=== PATIENT | female | born 1985 | race Caucasian/White ===

== ENCOUNTER → 2017-05-28 09:46 | Outpatient (CLI) | payer BC, SELFPAY ==
[2017-05-28 15:18] LABS: Chlamydia Trachomatis by PCR Negative (Negative); Neisserai gonorrhoeae by PCR Negative (Negative); Probe Check PASS; Sample Adequacy Control PASS; Specimen Processing Control PASS
== END ==
PROVIDERS: Visit Provider Obstetrics & Gynecology
DX: Z11.3 Encounter for screening for infections with a predominantly sexual mode of transmission (principal)
CPT/HCPCS: 87491; 87591

== ENCOUNTER → 2017-06-08 14:39 | Outpatient (CLI) | payer BC, SELFPAY ==
[2017-06-08 15:43] LABS: Color, Urine Yellow (Yellow); Glucose, Dipstick Normal (Normal); Ketone-Dipstick Negative (Negative); Leukocyte Esterase-Dipstick 25 /ul (Negative); Nitrite-Dipstick Negative (Negative); Occult Blood-Urine Negative /ul (Negative); Protein-Dipstick Negative (Negative); Specific Gravity, Urine 1.005 (1.002-1.030); Urine Bilirubin Dipstick Negative (Negative); Urine Clarity Clear (Clear); Urine Urobilinogen Normal (Normal)
[2017-06-08 15:47] LABS: Absolute Neutrophil Count 5.4 X10^3/uL (2.0-7.7); Basophil# 0.02 X10^3/uL; Basophil% 0.2 % (0-1); Eosinophil# 0.05 X10^3/uL; Eosinophils% 0.6 % (0-5); Hematocrit 37.1 % (37-47); Hemoglobin 12.6 g/dl (12.0-15.0); Lymphocyte % 27.7 % (19-41); Mean Corpuscular Hgb 32.7 pg (27.0-32.0); Mean Corpuscular Volume 96.4 fL (81-99); Mean Platelet Vol. 9.4 fl (6.2-12.0); Monocyte# 0.52 X10^3/uL; Monocyte% 6.3 % (0-10); Neutrophil # 5.41 X10^3/uL (2.7-7.7); Neutrophil % 65.1 % (47-70); Platelet Count 261 K/mm3 (150-450); RBC Distribution Width CV 12.1 % (11.6-14.6); RBC Distribution Width SD 42.3 fl (35.1-43.9); Red Blood Count 3.85 M/mm3 (4.2-5.4); White Blood Count 8.3 K/mm3 (4.4-11.0)
[2017-06-08 15:51] LABS: POSITIVE COUNT NO; POSITIVE DIFFERENTIAL NO; POSITIVE MORPHOLOGY NO
[2017-06-08 16:05] LABS: Thyroid Stim Hormone (TSH) 1.89 uIU/mL (0.358-3.74)
[2017-06-08 16:45] LABS: HIV - WCH Non-Reactive (Nonreactive); Rubella IgG 65.7 IU/mL
[2017-06-10 11:30] LABS: HEPATITIS B SURFACE AG Negative (Negative); Hep C Antibodies <0.1 s/co ratio (0.0-0.9)
[2017-06-12 03:10] LABS: Prenatal RPR NONREACTIVE (NONREACTIVE)
== END ==
PROVIDERS: Visit Provider Obstetrics & Gynecology
DX: Z34.90 Encounter for supervision of normal pregnancy, unspecified, unspecified trimester (principal)
CPT/HCPCS: 36415; 81002; 84443; 85025; 86703; 86762; 86777; 86778; 86803; 87340

== ENCOUNTER → 2017-10-27 08:41 | Outpatient (CLI) | payer BC, SELFPAY ==
[2017-10-27 11:45] LABS: Hematocrit 35.4 % (37-47); Hemoglobin 11.6 g/dl (12.0-15.0); Mean Corp Hgb Conc 32.8 g/gl (32-36); Mean Corpuscular Hgb 32.4 pg (27.0-32.0); Mean Corpuscular Volume 98.9 fL (81-99); Mean Platelet Vol. 9.7 fl (6.2-12.0); Platelet Count 209 K/mm3 (150-450); RBC Distribution Width CV 12.5 % (11.6-14.6); RBC Distribution Width SD 44.8 fl (35.1-43.9); Red Blood Count 3.58 M/mm3 (4.2-5.4); White Blood Count 8.6 K/mm3 (4.4-11.0)
[2017-10-27 11:46] LABS: Scan Indicated on CBC? Y/N NO
[2017-10-27 11:51] LABS: Glucose Challenge Gest 1H 50g 122 mg/dL (70-140)
== END ==
PROVIDERS: Visit Provider Obstetrics & Gynecology
DX: Z34.83 Encounter for supervision of other normal pregnancy, third trimester (principal)
CPT/HCPCS: 36415; 82950; 85027

== ENCOUNTER → 2017-12-22 11:02 | Outpatient (CLI) | payer BC, SELFPAY ==
[2017-12-22 15:04] LABS: Group B Strep DNA By PCR Negative (Negative); Internal Control PASS; Probe Check PASS; Specimen Processing Control PASS
== END ==
PROVIDERS: Visit Provider Obstetrics & Gynecology
DX: Z36.85 Encounter for antenatal screening for Streptococcus B (principal)
CPT/HCPCS: 87081; 87653

== ENCOUNTER 2018-01-26 09:20 | Inpatient (IN) | payer BC, SELFPAY ==
[2018-01-26] VITALS (12 sets, daily range): BP systolic 91–135; BP diastolic 54–80; PULSE 82–104; RESP 14–20; TEMP 36.8–37.6; O2SAT 98–100; BMI 29.8
[2018-01-26] MEDS: Lactated Ringers 1,000 ML 50 ML IV ×2 (09:45→15:19)
[2018-01-26 10:00] LABS: Hematocrit 35.8 % (37-47); Mean Corp Hgb Conc 33.5 g/gl (32-36); Mean Corpuscular Hgb 31.3 pg (27.0-32.0); Mean Corpuscular Volume 93.2 fL (81-99); Mean Platelet Vol. 10.4 fl (6.2-12.0); Platelet Count 238 K/mm3 (150-450); RBC Distribution Width CV 13.4 % (11.6-14.6); RBC Distribution Width SD 44.5 fl (35.1-43.9); Red Blood Count 3.84 M/mm3 (4.2-5.4); White Blood Count 8.5 K/mm3 (4.4-11.0)
[2018-01-26 10:01] LABS: Scan Indicated on CBC? Y/N NO
[2018-01-26] MEDS: Oxytocin 30 units/NS 500 ml 30 UNITS/500 ML IV.SOLN IV (10:05)
--- NOTE | 2018-01-26 12:35 | PCM.PN.BLA ---
Progress Note LABOR PROGRESS NOTE feeling some cramping, not painful, States bag of vega broke AVSS Pitocin at 6 mIU/min EFM 120-130s avg variability. Accels noted. no decels UCs q 3 min at times, poor shredder picker at times. CX: deferred. A/P: 41 3/7 wk Induction of labor. SROM continue pitocin per protocol. Prodromal labor now. Watch progress, descent.
[2018-01-26] MEDS: fentaNYL-bupivacaine (epidural) 100 ML BAG EPIDURAL (15:33)
[2018-01-26] MEDS: Sodium Citrate/Citric Acid 30 ML UDC PO (16:40)
[2018-01-26] MEDS: Cefazolin 2 GM in 0.9% Normal Saline 100 ML IV (16:52)
[2018-01-26] MEDS: Oxytocin 30 units/NS 500 ml 30 UNITS/500 ML IV.SOLN 167 UNITS IV (17:11)
[2018-01-26] MEDS: Ketorolac 30 MG/ML Syringe IV (17:34)
--- NOTE | 2018-01-26 17:46 | PCM.PN.BLA ---
Progress Note LATE ENTRY from appro 16:30 Called to evaluate patient. ? presentation. Hand presentation vs other. Sono confirms vtx but with calcified appearing appendage inferior to vtx. EFM overall reassuring. Occasional late. CX: 6/ with ? face presentation. Firm structure at approx 3:00- 4:00 position attempted pressure to reduce ? hand. With further examination. ? face presentation. Inc vaginal bleeding noted with exam. Sparks bulb reduced. a/P: Malpresentation. Face likely,but cannot r/o compound presentation on exam. Increased vaginal bleeding. Advised pt and spouse that safest route of delivery is by C Section. Preparations made. NIGHT BAKER to assist, Anesthesia notified. OB dept aware. Ancef 2 gm IV x one to be given.
--- NOTE | 2018-01-26 17:50 | PN_ITS ---
Progress Note LATE ENTRY from appro 16:30 Called to evaluate patient. ? presentation. Hand presentation vs other. Sono confirms vtx but with calcified appearing appendage inferior to vtx. EFM overall reassuring. Occasional late. CX: 6/ with ? face presentation. Firm structure at approx 3:00- 4:00 position attempted pressure to reduce ? hand. With further examination. ? face presentation. Inc vaginal bleeding noted with exam. Sparks bulb reduced. a/P: Malpresentation. Face likely,but cannot r/o compound presentation on exam. Increased vaginal bleeding. Advised pt and spouse that safest route of delivery is by C Section. Preparations made. ROTARY BAR OPERATOR to assist, Anesthesia notified. OB dept aware. Ancef 2 gm IV x one to be given.
[2018-01-26] MEDS: Lactated Ringers 1,000 ML 100 ML IV (19:20)
--- NOTE | 2018-01-26 20:38 | PCM.OP.BLANK ---
Operative Report Date of Procedure: 01/26/18 PROCEDURE: PRIMARY C SECTION Preoperative diagnosis: 41 3/7 wk EGA Labor malpresentation, face with possible hand Postop diagnosis: 41 3/7 wk EGA Labor malpresentation, face presentation Anesthesia: Epidural per Molly Salinas CRNA Surgeon: Cara Patel MD Cytotechnologist Supervisor: Shawn Ch, ARSEN EBL 800 cc Complications: none Drains: Sparks draining clear yellow urine Fluids: replacement LR Findings: At amniotomy, clear fluid was noted. Kennedy viable female in vertex position, face presentation. Apgars 8/9, Baby weight:7# 9 oz . There were a normal appearing uterus and fallopian tubes and ovaries bilaterally. PATH: none Narrative account: After the risks, benefits and alternatives of the procedure were reviewed with the patient , informed consent was obtained. The patient was taken to the Operating room with an IV running, a Sparks catheter in place and an epidural catheter in place. The epidural was dosed to surgical levels. The patient was the positioned to the dorsal supine position with leftward displacement of the uterus on the operating table, and briefly frog legged for vaginal vault prep and then returned to dorsal supine position with leftward displacement of the uterus, and prepped and draped in the usual sterile fashion. Once the epidural was deemed adequate, a Pfannenstiel skin incision was created using the knife . The incision was carried down to the rectus fascia using the knife. The fascia was nicked in the midline. The fascial incision was extended bilaterally using curved Gordon scissors. The superior aspect of the fascial incision was grasped with Talya clamps and tented up and the underlying rectus abdominal muscles were dissected free. In a similar manner, the inferior aspect of the facial incision was grasped with Talya clamps tented up and the underlying rectus abdominal muscles were dissected free. The rectus abdominis muscles were widely . The peritoneum was identified and entered by blunt dissection. The peritoneal incision was then extended inferiorly and superiorly using Metzenbaum scissors. The peritoneum was stretched laterally and a bladder blade was inserted. The uterine incision was then created using Metzenbaum scissors.The uterine incision was extended by blunt dissection in a caudad- cephalad orientation using the shell mold bonding machine operator's fingertips. Clear fluid was noted at amniotomy. The vertex was then delivered. A face presentation was noted, with mild edema of the baby's face and some frontal bossing noted. Using fundal pressure the baby was delivered. The OP and nares were bulb suctioned on the abdomen. The cord was clamped x two and cut and the baby was shown briefly to her parents and then passed off to the nurse and Dr. Vega awaiting delivery. The baby had a spontaneous, vigorous cry. The placenta was then delivered. The uterus was exteriorized and cleared of clots and debris . The uterine incision was repaired with 1 Vicryl in a running locked fashion. A second imbricating layer was then placed, using 1 Monocryl in running nonlocked fashion. There was a small hematoma extending at the Left uterine angle. this area was oversewn as needed for hemostasis and to stabilize the hematoma. The hematoma then remained soft and excellent hemostasis was noted. The uterus, fallopian tubes and ovaries were then inspected and returned to the abdominal cavity. The gutters were cleared of clots and debris. The uterine incision and fallopian tubes were again inspected. Excellent hemostasis was noted. The pelvis and abdomen were irrigated. The rectus abdominis and peritoneal edges were reapproximated in the midline with interrupted vertical mattress stitches of 1 Vicryl . Excellent hemostasis was noted at the subfascial space . The fascia was closed in a running nonlocked fashion with Stratofix suture. The Subcutaneous fatty tissue was Bovie cauterized as needed for hemostasis. This layer was then reapproximated with a nonlocked running 3-0 Vicryl. The skin edges were closed in a Subcuticular stitch of 4-0 Monocryl. The incision was cleansed. Seri-strips, and a sterile dressing (Mepilex) were applied. The patient was then transferred to the recovery room bed in stable condition after tolerating the procedure well. Sponge, lap, needle and instrument counts correct times two. Medications given preop and intraoperatively included: Ancef two grams IV was given cardiovascular sonographer to the operating room. The patient also received Pitocin given IV after cord clamp, and Toradol 30 mg IV after cord clamp. For a complete listing of medications given preop and intraoperatively, please see the anesthesia record.
--- NOTE | 2018-01-26 20:47 | OP.PCM_ITS ---
Operative Report Date of Procedure: 01/26/18 PROCEDURE: PRIMARY C SECTION Preoperative diagnosis: 41 3/7 wk EGA Labor malpresentation, face with possible hand Postop diagnosis: 41 3/7 wk EGA Labor malpresentation, face presentation Anesthesia: Epidural per Molly Salinas CRNA Surgeon: Cara Patel MD Go Go Dancer: Shawn Ch, ARSEN EBL 800 cc Complications: none Drains: Sparks draining clear yellow urine Fluids: replacement LR Findings: At amniotomy, clear fluid was noted. Kennedy viable female in vertex position, face presentation. Apgars 8/9, Baby weight:7# 9 oz . There were a normal appearing uterus and fallopian tubes and ovaries bilaterally. PATH: none Narrative account: After the risks, benefits and alternatives of the procedure were reviewed with the patient , informed consent was obtained. The patient was taken to the Operating room with an IV running, a Sparks catheter in place and an epidural catheter in place. The epidural was dosed to surgical levels. The patient was the positioned to the dorsal supine position with leftward displacement of the uterus on the operating table, and briefly frog legged for vaginal vault prep and then returned to dorsal supine position with leftward displacement of the uterus, and prepped and draped in the usual sterile fashion. Once the epidural was deemed adequate, a Pfannenstiel skin incision was created using the knife . The incision was carried down to the rectus fascia using the knife. The fascia was nicked in the midline. The fascial incision was extended bilaterally using curved Gordon scissors. The superior aspect of the fascial incision was grasped with Talya clamps and tented up and the underlying rectus abdominal muscles were dissected free. In a similar manner, the inferior aspect of the facial incision was grasped with Talya clamps tented up and the underlying rectus abdominal muscles were dissected free. The rectus abdominis muscles were widely . The peritoneum was identified and entered by blunt dissection. The peritoneal incision was then extended inferiorly and superiorly using Metzenbaum scissors. The peritoneum was stretched laterally and a bladder blade was inserted. The uterine incision was then created using Metzenbaum scissors.The uterine incision was extended by blunt dissection in a caudad- cephalad orientation using the exhaust equipment operator's fingertips. Clear fluid was noted at amniotomy. The vertex was then delivered. A face presentation was noted, with mild edema of the baby's face and some frontal bossing noted. Using fundal pressure the baby was delivered. The OP and nares were bulb suctioned on the abdomen. The cord was clamped x two and cut and the baby was shown briefly to her parents and then passed off to the nurse and Dr. Vega awaiting delivery. The baby had a spontaneous, vigorous cry. The placenta was then delivered. The uterus was exteriorized and cleared of clots and debris . The uterine incision was repaired with 1 Vicryl in a running locked fashion. A second imbricating layer was then placed, using 1 Monocryl in running nonlocked fashion. There was a small hematoma extending at the Left uterine angle. this area was oversewn as needed for hemostasis and to stabilize the hematoma. The hematoma then remained soft and excellent hemostasis was noted. The uterus, fallopian tubes and ovaries were then inspected and returned to the abdominal cavity. The gutters were cleared of clots and debris. The uterine incision and fallopian tubes were again inspected. Excellent hemostasis was noted. The pelvis and abdomen were irrigated. The rectus abdominis and peritoneal edges were reapproximated in the midline with interrupted vertical mattress stitches of 1 Vicryl . Excellent hemostasis was noted at the subfascial space . The fascia was closed in a running nonlocked fashion with Stratofix suture. The Subcutaneous fatty tissue was Bovie cauterized as needed for hemostasis. This layer was then reapproximated with a nonlocked running 3-0 Vicryl. The skin edges were closed in a Subcuticular stitch of 4-0 Monocryl. The incision was cleansed. Seri- strips, and a sterile dressing (Mepilex) were applied. The patient was then transferred to the recovery room bed in stable condition a fter tolerating the procedure well. Sponge, lap, needle and instrument counts correct times two. Medications given preop and intraoperatively included: Ancef two grams IV was given tailor women's garment alteration to the operating room. The patient also received Pitocin given IV after cord clamp, and Toradol 30 mg IV after cord clamp. For a complete listing of medications given preop and intraoperatively, please see the anesthesia record.
--- NOTE | 2018-01-26 21:58 | NURSING ---
Epidural removed, blue tip intact.
--- NOTE | 2018-01-26 23:30 | NURSING ---
This RN taking over care of pt. Bedside report given and [employer] phone number written on board.
[2018-01-27] VITALS (14 sets, daily range): BP systolic 102–120; BP diastolic 58–71; PULSE 73–88; RESP 16–18; TEMP 36.7–37.4; O2SAT 16–99
[2018-01-27] MEDS: Ketorolac 30 MG/ML Syringe IV ×5 (00:13→23:42)
[2018-01-27 04:35] LABS: Hemoglobin 8.9 g/dl (12.0-15.0); Mean Corpuscular Hgb 31.4 pg (27.0-32.0); Mean Corpuscular Volume 95.4 fL (81-99); Mean Platelet Vol. 9.8 fl (6.2-12.0); Platelet Count 173 K/mm3 (150-450); RBC Distribution Width CV 13.4 % (11.6-14.6); RBC Distribution Width SD 43.8 fl (35.1-43.9); Red Blood Count 2.83 M/mm3 (4.2-5.4); White Blood Count 10.6 K/mm3 (4.4-11.0)
[2018-01-27 04:37] LABS: Scan Indicated on CBC? Y/N NO
[2018-01-27] MEDS: Lactated Ringers 1,000 ML 100 ML IV (06:03)
--- NOTE | 2018-01-27 07:00 | PCM.DCCSEC ---
Discharge Diet: No Restrictions Discharge Activity: May not drive while taking narcotic pain medications., May Shower, May Take a Tub Bath Return to work on:: 03/08/18 May resume sexual activity in: 4-6 weeks Lifting Restrictions: 20 pounds Additional Activity Instructions:: Nothing in the vagina for 4-6 weeks. You may return to work/school in 6 weeks. Change Dressing in (Days):: 4 Remove Dressing in (days):: 4 Cleanse incision/area with: Soap & Water, Keep Dressing Clean & Dry Additional Instructions: If you experience any of the following, contact your healthcare provider. Bleeding that soaks a pad every hour for 2 hours Fever 100.4 or higher Unrelieved incision or abdominal pain Swelling, redness, discharge or bleeding from your incision Problems urinating (including inability to urinate or burning while urinating). Visual changes Severe headache Flu-like symptoms Pain or redness in one of both of your breasts Pain, warmth, tenderness or swelling in your legs, especially the calf area Frequent nausea and vomiting Symptoms of depression or anxiety If you experience any of the following, call 911 or go to the nearest Emergency Room. Chest pain Problems breathing Seizure activity Partial or complete paralysis of a body part, slurred speech, weakness or drooping of the face, or a sudden inability to walk or hold your balance Allergies/Adverse Reactions: Allergies No Known Allergies Allergy (Verified 01/26/18 09:50) Medications to take at Discharge Vits96/Iron Fum/Folic [ Tablet] 01/26/18 Acetaminophen [Tylenol] 1,000 mg PO Q8H PRN tablet 01/27/18 Ferrous Sulfate 325 mg PO 1200,1700 #60 tablet 01/27/18 Naproxen [Naprosyn] 250 - 500 mg PO Q8H PRN PRN #30 tablet 01/27/18 Oxycodone [Oxyir] 5 mg PO Q6H PRN PRN 5 Days #20 tablet 01/27/18 Senna/Docusate Sodium [Senokot-S] 1 - 2 tab PO DAILY PRN #30 tablet 01/27/18 The following prescriptions were given: Oxycodone [Oxyir] 5 mg PO Q6H PRN PRN 5 Days #20 tablet PRN Reason: Mod-Severe Pain (-12/30) Naproxen [Naprosyn] 250 - 500 mg PO Q8H PRN PRN #30 tablet PRN Reason: Mild-Mod Pain (1-07/30) Ferrous Sulfate 325 mg PO 1200,1700 #60 tablet Senna/Docusate Sodium [Senokot-S] 1 - 2 tab PO DAILY PRN #30 tablet PRN Reason: Constipation Follow-Up: Call to make an appointment with your doctor for an incision check in 1-2 weeks. You will also need a 6 week post- follow up appointment. Test results from this visit will be discussed in further detail at your follow-up appointment, if applicable. Please Follow Up With: Cara Patel MD - [phone] When: Call to make an appointment for an incision check in 2 weeks. Primary Care Physician: Care Physician,No Primary [Primary Care Provider] - Proposed Discharge Date: 01/29/18
--- NOTE | 2018-01-27 07:05 | DCINST_ITS ---
Discharge Diet: No Restrictions Discharge Activity: May not drive while taking narcotic pain medications., May Shower, May Take a Tub Bath Return to work on:: 03/08/18 May resume sexual activity in: 4-6 weeks Lifting Restrictions: 20 pounds Additional Activity Instructions:: Nothing in the vagina for 4-6 weeks. You may return to work/school in 6 weeks. Change Dressing in (Days):: 4 Remove Dressing in (days):: 4 Cleanse incision/area with: Soap & Water, Keep Dressing Clean & Dry Additional Instructions: If you experience any of the following, contact your healthcare provider. * Bleeding that soaks a pad every hour for 2 hours * Fever 100.4 or higher * Unrelieved incision or abdominal pain * Swelling, redness, discharge or bleeding from your incision * Problems urinating (including inability to urinate or burning while urinating). * Visual changes * Severe headache * Flu-like symptoms * Pain or redness in one of both of your breasts * Pain, warmth, tenderness or swelling in your legs, especially the calf area * Frequent nausea and vomiting * Symptoms of depression or anxiety If you experience any of the following, call 911 or go to the nearest Emergency Room. * Chest pain * Problems breathing * Seizure activity * Partial or complete paralysis of a body part, slurred speech, weakness or drooping of the face, or a sudden inability to walk or hold your balance Allergies/Adverse Reactions: Allergies No Known Allergies Allergy (Verified 01/26/18 09:50) Medications to take at Discharge Vits96/Iron Fum/Folic [ Tablet] 01/26/18 Acetaminophen [Tylenol] 1,000 mg PO Q8H PRN tablet 01/27/18 Ferrous Sulfate 325 mg PO 1200,1700 #60 tablet 01/27/18 Naproxen [Naprosyn] 250 - 500 mg PO Q8H PRN PRN #30 tablet 01/27/18 Oxycodone [Oxyir] 5 mg PO Q6H PRN PRN 5 Days #20 tablet 01/27/18 Senna/Docusate Sodium [Senokot-S] 1 - 2 tab PO DAILY PRN #30 tablet 01/27/18 The following prescriptions were given: Oxycodone [Oxyir] 5 mg PO Q6H PRN PRN 5 Days #20 tablet PRN Reason: Mod-Severe Pain (4-12/30) Naproxen [Naprosyn] 250 - 500 mg PO Q8H PRN PRN #30 tablet PRN Reason: Mild-Mod Pain (1-07/30) Ferrous Sulfate 325 mg PO 1200,1700 #60 tablet Senna/Docusate Sodium [Senokot-S] 1 - 2 tab PO DAILY PRN #30 tablet PRN Reason: Constipation Follow-Up: Call to make an appointment with your doctor for an incision check in 1-2 weeks. You will also need a 6 week post- follow up appointment. Test results from this visit will be discussed in further detail at your follow- up appointment, if applicable. Please Follow Up With: Cara Patel MD - [phone] When: Call to make an appointment for an incision check in 2 weeks. Primary Care Physician: Care Physician,No Primary [Primary Care Provider] - Proposed Discharge Date: 01/29/18
--- NOTE | 2018-01-27 08:32 | PCM.PN.OB ---
Subjective: POD#1 Primary C section for malpresentation , face presentation at 41 4/7 wk EGA Doing OK. Pain control adequate. Nursing well. Up to chair right now and states first time out of bed since surgery last evening. - Physical Exam General: Alert, Oriented x3, Cooperative, No apparent distress HEENT: Atraumatic Neck: Supple Abdomen: Soft - Fundus firm minimally tender and inferior to umbilicus x 2-3 cm Skin: Incision - Mepilex dressing CDI. Neurological: Cranial nerves II-XII grossly intact Psych/Mental Status: Normal Affect Vital Signs Temp Pulse Resp BP Pulse Ox 98.1 F 78 16 117/67 97 01/27/18 08:00 01/27/18 08:00 01/27/18 08:00 01/27/18 08:00 01/27/18 08:00 Oxygen Delivery Method Room Air Weight: 78.9 kg Body Mass Index (BMI) 29.8 Intake and Output for Last 24 Hours 01/25/18 01/26/18 01/27/18 23:59 23:59 23:59 Intake Total 2455 / 2455 1383 / 1383 Output Total 2100 / 2100 1950 / 1950 Balance 355 / 355 -567 / -567 Laboratory Tests Past 24 Hrs 01/26/18 01/26/18 01/27/18 09:45 09:45 04:30 WBC 8.5 10.6 RBC 3.84 L 2.83 L Hgb 12.0 8.9 L Hct 35.8 L 27.0 L MCV 93.2 95.4 MCH 31.3 31.4 MCHC 33.5 33.0 RDW 13.4 13.4 RDW Differential 44.5 H 43.8 Plt Count 238 173 MPV 10.4 9.8 Blood Type O POSITIVE Antibody Screen NEGATIVE Medical Necessity - Tobacco Use Smoking Status: Never smoker Assessment/Plan POD#1 Primary C section for face presentation Stable postop. AVSS with benign exam. Inc diet and activity as tolerated. May use abdominal binder. D/C josue for voiding trial. Begin po meds. Postop anemia. Ferrous sulfate bid to start today. Continue for one mo postop.
[2018-01-27] MEDS: Ferrous Sulfate 325 MG Tablet PO ×2 (12:15→17:47)
--- NOTE | 2018-01-27 12:38 | NURSING ---
This nurse reviewed the charting completed by Janet Dias, student nurse.
[2018-01-27] MEDS: oxyCODONE 5 MG Tablet PO (17:47)
[2018-01-27] MEDS: Senna/Docusate Sodium 1 Tablet PO (20:25)
[2018-01-27] MEDS: 0.9% Saline Lock 10 ML Syringe IV (23:42)
[2018-01-28 01:15] VITALS: BP 102/64; PULSE 68; RESP 16; TEMP 36.3
[2018-01-28] MEDS: Ketorolac 30 MG/ML Syringe IV ×2 (06:29→12:23)
[2018-01-28] MEDS: 0.9% Saline Lock 10 ML Syringe IV (06:30)
--- NOTE | 2018-01-28 07:31 | DS.PCM_ITS ---
Discharge Date and Diagnosis Date of Admission: 01/26/18 - 41 4/7 wk labor Date of Discharge: 01/28/18 - S/P C section malpresentation Hospital Course and Treatment Operations: - - Primary C section for malpresentation, face / hand Summary of Care Provided: The patient is a 32 year old female presents in early labor for induction of labor. 41 2/7 wk. Progressed to 6 cm. Epidural placed. Malpresentation noted Vtx but face and ? hand / arm presenting. Advised with malpresentation to proceed with C Section delivery. Delivered 7# 9 oz female. Ap 8/9 Face presentation with facial edema and ecchymoses noted. Normal p elvic anatomy, uncomplicated C section and hospital course Elects dischg postop day #2. Mild acute blood loss anemia noted. clinically stable. D/C home. Ferrous sulfate for one month. RTO in 2 wk for postop check. - Physical Exam Vital Signs Temp Pulse Resp BP Pulse Ox 97.4 F L 68 16 102/64 99 01/28/18 01:15 01/28/18 01:15 01/28/18 01:15 01/28/18 01:15 01/27/18 15:48 Oxygen Delivery Method Room Air Weight: 78.9 kg Body Mass Index (BMI) 29.8 Intake and Output for Last 24 Hours 01/26/18 01/27/18 01/28/18 23:59 23:59 23:59 Intake Total 2455 / 2455 1383 / 1383 Output Total 2100 / 2100 2250 / 2250 Balance 355 / 355 -867 / -867 Discharge Diet: No Restrictions Discharge Activity: May not drive while taking narcotic pain medications., May Shower, May Take a Tub Bath Return to work on:: 03/08/18 May resume sexual activity in: 4-6 weeks Additional Activity Instructions:: Nothing in the vagina for 4-6 weeks. You may return to work/school in 6 weeks. Change Dressing in (Days):: 4 Remove Dressing in (days):: 4 Cleanse incision/area with: Soap & Water, Keep Dressing Clean & Dry Home Medications: Medications to take at Discharge Vits96/Iron Fum/Folic [ Tablet] 01/26/18 Acetaminophen [Tylenol] 1,000 mg PO Q8H PRN tablet 01/27/18 Ferrous Sulfate 325 mg PO 1200,1700 #60 tablet 01/27/18 Naproxen [Naprosyn] 250 - 500 mg PO Q8H PRN PRN #30 tablet 01/27/18 Oxycodone [Oxyir] 5 mg PO Q6H PRN PRN 5 Days #20 tablet 01/27/18 Senna/Docusate Sodium [Senokot-S] 1 - 2 tab PO DAILY PRN #30 tablet 01/27/18 Following Prescrptions Were Given to Patient: Oxycodone [Oxyir] 5 mg PO Q6H PRN PRN 5 Days #20 tablet PRN Reason: Mod-Severe Pain (-12/30) Naproxen [Naprosyn] 250 - 500 mg PO Q8H PRN PRN #30 tablet PRN Reason: Mild-Mod Pain (-07/30) Ferrous Sulfate 325 mg PO 1200,1700 #60 tablet Senna/Docusate Sodium [Senokot-S] 1 - 2 tab PO DAILY PRN #30 tablet PRN Reason: Constipation Primary Care Physician: Care Physician,No Primary [Primary Care Provider] - Please Follow Up With: Cara Patel MD - [phone] When: Call to make an appointment for an incision check in 2 weeks. Medical Necessity - Tobacco Use Smoking Status: Never smoker Meaningful Use Info Meaningful Use Diagnoses (Choose all that apply): None applicable
--- NOTE | 2018-01-28 07:31 | PCM.PN.OB ---
Subjective: POD#2 C section. malpresentation Doing well and would like to go home today. Baby cluster fed last pm. Milk not in yet. F/U planned with Dr. Glover outpt. Pain control adequate. Minimal med taken. Questions about recovery, minimal bleeding, activity restrictions, swelling in ankles. - Physical Exam General: Alert, Oriented x3, Cooperative, No apparent distress HEENT: Atraumatic Neck: Supple Abdomen: Soft - Fundus firm NT at umbilicus Skin: Incision - Mepilex dressing CDI. Neurological: Cranial nerves II-XII grossly intact Psych/Mental Status: Normal Affect Vital Signs Temp Pulse Resp BP Pulse Ox 97.4 F L 68 16 102/64 99 01/28/18 01:15 01/28/18 01:15 01/28/18 01:15 01/28/18 01:15 01/27/18 15:48 Oxygen Delivery Method Room Air Weight: 78.9 kg Body Mass Index (BMI) 29.8 Intake and Output for Last 24 Hours 01/26/18 01/27/18 01/28/18 23:59 23:59 23:59 Intake Total 2455 / 2455 1383 / 1383 Output Total 2100 / 2100 2250 / 2250 Balance 355 / 355 -867 / -867 Medical Necessity - Tobacco Use Smoking Status: Never smoker Assessment/Plan POD#2 Primary C section for face presentation Stable postop. Home today per pt request. RTO in 2 wk for postop incision check.
[2018-01-28 07:50] VITALS: BP 110/74; PULSE 78; RESP 18; TEMP 36.8; O2SAT 96
[2018-01-28] MEDS: Senna/Docusate Sodium 1 Tablet PO (12:23)
[2018-01-28] MEDS: Ferrous Sulfate 325 MG Tablet PO (12:23)
[2018-01-28 15:15] VITALS: BP 114/65; PULSE 93; RESP 20; TEMP 37; O2SAT 97
== END 2018-01-28 16:00 | disposition home or self-care (01) | DRG 787 ==
PROVIDERS: Admitting Provider Obstetrics & Gynecology; Referring Provider Obstetrics & Gynecology; Visit Provider Obstetrics & Gynecology
DX: O64.2XX0 Obstructed labor due to face presentation, not applicable or unspecified (principal); D62 Acute posthemorrhagic anemia; Z3A.41 41 weeks gestation of pregnancy; Z37.0 Single live birth; O48.0 Post-term pregnancy
CPT/HCPCS: 59025; 59050; 76815; 85027; 86850; 86900; 99218; J7120; 90686; A4216; G0378; J2405

== ENCOUNTER → 2019-11-07 | Outpatient (CLI) | payer BC, SELFPAY ==
[2018-01-26 09:31] VITALS: BMI 29.8
[2019-11-10 03:06] LABS: Chlamydia By Nucleic Acid AMP Negative (Negative)
[2019-11-10 11:32] LABS: Gonococcus By Nucleic Acid AMP Negative (Negative)
[2019-11-11 13:57] LABS: HPV APTIMA, High Risk Negative (Negative)
[2019-11-11 13:59] LABS: HPV Reflexed? YES, CHARGE PATIENT
== END | disposition home or self-care (01) ==
PROVIDERS: Visit Provider Student in an Organized Health Care Education/Training Program
DX: Z32.01 Encounter for pregnancy test, result positive (principal); Z12.4 Encounter for screening for malignant neoplasm of cervix; Z11.3 Encounter for screening for infections with a predominantly sexual mode of transmission
CPT/HCPCS: 87491; 87591; 87624; 88175; G0145

== ENCOUNTER → 2019-12-05 16:42 | Outpatient (CLI) | payer BC, SELFPAY ==
[2018-01-26 09:31] VITALS: BMI 29.8
[2019-12-05 17:55] LABS: Color, Urine Yellow (Yellow); Glucose, Dipstick Normal (Normal); Ketone-Dipstick Negative (Negative); Leukocyte Esterase-Dipstick 25 /ul (Negative); Nitrite-Dipstick Negative (Negative); Occult Blood-Urine Negative /ul (Negative); Protein-Dipstick Negative (Negative); Specific Gravity, Urine 1.015 (1.002-1.030); Urine Bilirubin Dipstick Negative (Negative); Urine Clarity Clear (Clear); Urine Urobilinogen Normal (Normal); Urine pH 6.5 (5.0 - 8.0)
[2019-12-05 18:00] LABS: Absolute Lymphocyte Count 2.84 X10^3/uL (0.83-4.51); Absolute Neutrophil Count 5.4 X10^3/uL (2.0-7.7); Basophil# 0.03 X10^3/uL; Basophil% 0.3 % (0-1); Eosinophil# 0.07 X10^3/uL; Eosinophils% 0.8 % (0-5); Hemoglobin 12.7 g/dL (12.0-15.0); Lymphocyte # 2.84 X10^3/ul (4.0); Mean Corp Hgb Conc 34.3 g/dL (32-36); Mean Corpuscular Hgb 32.9 pg (27.0-32.0); Mean Corpuscular Volume 95.9 fL (81-99); Mean Platelet Vol. 9.4 fl (6.2-12.0); Monocyte# 0.47 X10^3/uL; Monocyte% 5.3 % (0-10); NRBC Flagged by Analyzer 0 % (0-5); Neutrophil # 5.44 X10^3/uL (2.7-7.7); Neutrophil % 61.3 % (47-70); Platelet Count 279 K/mm3 (150-450); RBC Distribution Width CV 12.2 % (11.6-14.6); RBC Distribution Width SD 42.7 fl (35.1-43.9); Red Blood Count 3.86 M/mm3 (4.2-5.4); White Blood Count 8.9 K/mm3 (4.4-11.0)
[2019-12-05 18:28] LABS: Amphetamine Urine VISTA NEGATIVE (<1000 ng/mL); Barbiturate Urine VISTA NEGATIVE (< 200 ng/mL); Benzodiazepine Urine VISTA NEGATIVE (< 200 ng/mL); Cocaine Urine VISTA NEGATIVE (< 300 ng/mL); Ecstacy Urine VISTA NEGATIVE (< 500 ng/mL); Methadone Urine VISTA NEGATIVE (< 300 ng/mL); PCP Urine VISTA NEGATIVE (< 25 ng/mL); THC Urine VISTA NEGATIVE (< 50 ng/mL); Vista UDS pH Range 6
[2019-12-06 09:49] LABS: HIV - WCH Non-Reactive (Nonreactive); Hepatitis B Surface Antigen Non-Reactive (Nonreactive); Hepatitis C Antibody Non-Reactive (Nonreactive); Rubella IgG 88.1 IU/mL
[2019-12-07 20:25] LABS: V-Zoster IgG (Immunity) 461 index (Immune >165)
[2019-12-08 04:31] LABS: Prenatal RPR NONREACTIVE (NONREACTIVE)
== END ==
PROVIDERS: Visit Provider Student in an Organized Health Care Education/Training Program
DX: Z34.81 Encounter for supervision of other normal pregnancy, first trimester (principal)
CPT/HCPCS: 36415; 80307; 81002; 85025; 86703; 86762; 86787; 86803; 87340

== ENCOUNTER → 2020-03-20 08:41 | Outpatient (CLI) | payer BC, SELFPAY ==
[2018-01-26 09:31] VITALS: BMI 29.8
[2020-03-20 10:41] LABS: Hematocrit 35.4 % (37-47); Hemoglobin 11.6 g/dL (12.0-15.0); Mean Corp Hgb Conc 32.8 g/dL (32-36); Mean Corpuscular Hgb 32.8 pg (27.0-32.0); Mean Platelet Vol. 9.9 fl (6.2-12.0); Platelet Count 240 K/mm3 (150-450); Red Blood Count 3.54 M/mm3 (4.2-5.4); White Blood Count 8.3 K/mm3 (4.4-11.0)
[2020-03-20 10:46] LABS: Glucose Challenge Gest 1H 50g 117 mg/dL (70-140)
== END ==
PROVIDERS: Visit Provider Student in an Organized Health Care Education/Training Program
DX: Z34.82 Encounter for supervision of other normal pregnancy, second trimester (principal)
CPT/HCPCS: 36415; 82950; 85027

== ENCOUNTER → 2020-06-12 | Outpatient (CLI) | payer BC, SELFPAY ==
[2018-01-26 09:31] VITALS: BMI 29.8
== END | disposition home or self-care (01) ==
LOC: LABSPEC 11:31
PROVIDERS: PCP Family Medicine; Visit Provider Student in an Organized Health Care Education/Training Program
DX: Z36.85 Encounter for antenatal screening for Streptococcus B (principal)
CPT/HCPCS: 87081

== ENCOUNTER → 2020-06-21 17:07 | Outpatient (CLI) | payer BC, SELFPAY | PROVIDERS: PCP Family Medicine; Referring Provider Obstetrics & Gynecology; Visit Provider Obstetrics & Gynecology | DX: Z03.818 Encounter for observation for suspected exposure to other biological agents ruled out (principal) | CPT/HCPCS: 87635; C9803; U0002 ==

== ENCOUNTER 2020-06-28 05:04 | Inpatient (IN) | payer BC, SELFPAY ==
[2018-01-26 09:31] VITALS: BMI 29.8
[2020-06-28] VITALS (17 sets, daily range): BP systolic 98–137; BP diastolic 57–89; PULSE 67–97; RESP 12–18; TEMP 36.2–36.9; O2SAT 95–98; BMI 32.6
[2020-06-28] MEDS: Lactated Ringers 1,000 ML 999 ML IV (05:25)
[2020-06-28 05:42] LABS: Absolute Lymphocyte Count 2.08 X10^3/uL (0.83-4.51); Absolute Neutrophil Count 6.3 X10^3/uL (2.0-7.7); Basophil# 0.04 X10^3/uL; Basophil% 0.4 % (0-1); Eosinophil# 0.08 X10^3/uL; Eosinophils% 0.9 % (0-5); Hematocrit 33.6 % (37-47); Hemoglobin 10.9 g/dL (12.0-15.0); Lymphocyte # 2.08 X10^3/ul (4.0); Lymphocyte % 22.5 % (19-41); Mean Corp Hgb Conc 32.4 g/dL (32-36); Mean Corpuscular Hgb 29.8 pg (27.0-32.0); Mean Corpuscular Volume 91.8 fL (81-99); Mean Platelet Vol. 9.9 fl (6.2-12.0); Monocyte# 0.64 X10^3/uL; Monocyte% 6.9 % (0-10); NRBC Flagged by Analyzer 0 % (0-5); Neutrophil # 6.29 X10^3/uL (2.7-7.7); Neutrophil % 67.9 % (47-70); Platelet Count 216 K/mm3 (150-450); RBC Distribution Width CV 13.2 % (11.6-14.6); RBC Distribution Width SD 44.4 fl (35.1-43.9); Red Blood Count 3.66 M/mm3 (4.2-5.4); White Blood Count 9.3 K/mm3 (4.4-11.0)
[2020-06-28] MEDS: Acetaminophen 500 MG Tablet 1000 MG PO ×3 (06:07→19:44)
--- NOTE | 2020-06-28 06:17 | PCM.HPOB.BLA ---
History and Physical Date of Admission: 06/28/20 HPI: 35 yo at 39/0w, CHAPIN 07/06/20 by LMP, admitted for repeat section and bilateral tubal ligation. Denies LOF, VB, contractions. +FM This is complicated by: advanced maternal age Obstetrical History G1: FT c/s G2: current Past Medical History Denies Medications PNV Past Surgical History section WTE Social History Tobacco use: denies Alcohol use: denies Illicit drug use: denies Labs Blood type: O pos Rubella: immune Varicella: immunes Hep B/C: neg/neg HIV: neg RPR: nonreactive GBS: neg Allergies NKDA Review of Systems General: alert and oriented HEENT: _denies change of vision Heart/lungs: _denies CP, SOB GI: _denies nausea, vomiting, dysuria, diarrhea MSK: _denies calf pain, tenderness Physical Exam Vital Signs Temp Pulse Resp BP Pulse Ox 06/28/20 05:40 98.3 F 94 16 137/84 H 97 General: a&o x3, NAD HEENT: normocephalic, atraumatic Cardio: no JVD Resp: no increased work in breathing Abdomen: soft, gravid, nontender Extremities: _minimal-moderate edema FHT: p Labs Laboratory Results - last 24 hr 06/28/20 05:25 WBC 9.3 RBC 3.66 L Hgb 10.9 L Hct 33.6 L MCV 91.8 MCH 29.8 MCHC 32.4 RDW Std Deviation 44.4 H RDW Coeff of Burak 13.2 Plt Count 216 MPV 9.9 Immature Gran % (Auto) 1.400 H Neut % (Auto) 67.9 Lymph % (Auto) 22.5 Sabine % (Auto) 6.9 Eos % (Auto) 0.9 Baso % (Auto) 0.4 Absolute Neuts (auto) 6.3 Absolute Lymphs (auto) 2.08 Nucleated RBC % 0 Assessment & Plan 35 yo , CHAPIN 07/06/20 by LMP, admitted for repeat sectio and bilateral tubal ligation. Complicated by: advanced maternal age. Admit to L&D - _Routine labor orders - 2 g Ancef preop - GBS _ - CEFM - Anesthesia to see
[2020-06-28] MEDS: Lactated Ringers 1,000 ML 150 ML IV (06:27)
[2020-06-28] MEDS: Sodium Citrate/Citric Acid 30 ML UDC PO (07:12)
[2020-06-28] MEDS: Cefazolin 2 GM in 0.9% Normal Saline 100 ML IV (07:26)
--- NOTE | 2020-06-28 07:47 | FALS_PTH ---
PATIENT: BETO MENG LOC: [facility] U#:[id number] AGE/SX: 35/F ROOM: WP006 RE06/28/[address]: Dr. Molly Reyes DO : 1985 BED: 1 DIS: 06/29/2020 SPEC #: [id number] RECD: 06/28/20 11:26 STATUS: TONG RERosina #: [id number] YONY: 06/28/20 07:[address]: Molly Reyes DEPT: SURGICAL PATHOLOGY RECD BY: Mireille Howe ENTERED: 06/28/20 12:05 SP TYPE: FALL TUBES OTHR DR: Dr. Elias Lee MD Tissues: Fallopian tube Procedures: Surgery Specimen Level II HEADER OPERATION: Tubal ligation PRE-OP DIAGNOSIS: Sterilization TISSUE SUBMITTED: Fallopian tubes MICROSCOPIC DIAGNOSIS Bilateral fallopian tubes, salpingectomy: Bilateral fallopian tubes including fimbrial ends, no pathologic diagnosis. TOMI:asad 06/29/2020 MICROSCOPIC DESCRIPTION Slides are reviewed. GROSS DESCRIPTION Received in fixative is one container labeled with the patient's name and designated bilateral fallopian tubes, left tube with suture. The specimen consists of bilateral fallopian tubes including fimbrial ends. The right fallopian tube measures 7.5 cm in length and 0.6 cm in diameter and the left fallopian tube measures 6 cm in length and 0.5 cm in diameter. Sections reveal unremarkable cut surfaces. Professional Application Designer sections are submitted in two cassettes as follows: 1 - right fallopian tube, 2 - left fallopian tube. / TOMI:asad 06/28/20 TC:4 CPT: 41763
--- NOTE | 2020-06-28 08:20 | OP.PCM_ITS ---
Delivery Classification: Scheduled Final CHAPIN: 07/05/20 Final CHAPIN Source: LMP Gestational age: 39 Weeks and 0 Days Type of Anesthesia:: Spinal Date of Procedure: 06/28/20 Pre-Operative Diagnosis: Kennedy intrauterine , term. Desires bilateral tubal sterilization. Post-Operative Diagnosis: Kennedy intrauterine , term. Desires bi lateral tubal sterilization. Indications: 35-year-old at 39/0 weeks presenting for repeat section bilateral tubal ligation. Risks benefits and alternatives discussed with patient. Risks include but are not limited to: Risk of bleeding to the point of transfusion, infection, injury to surrounding tissue including bowel or bladder requiring prolonged Sparks catheter use, VTE, ICU admission, risk of regret regarding tubal ligation. Patient aware and consented. Indications for : Repeat Elective , Desires elective sterilization Description of Procedure: Patient taken to the operating room spinal anesthesia placed. Patient placed in the supine position with left lateral tilt. Prepped and draped in usual sterile fashion. Pfannenstiel skin incision made with scalpel carried down through subcutaneous tissue. Fascia nicked on either side of the midline and extended bilaterally using Gordon scissors. Talya clamps placed on the superior fascial edge which was tented up underlying rectus muscles were dissected off bluntly and sharply at midline. Clamps moved to inferior fascial edge which was tented up and rectus muscles dissected off in a similar fashion. Hemostats utilized to separate rectus muscles superiorly and peritoneum grasped and incised with Metzenbaum scissors. Extended bluntly. Bladder blade placed. Tico uterine peritoneum identified and bladder flap created using Metzenbaum scissors. Low transverse uterine incision made with scalpel and entered bluntly, extended bluntly. Amniotomy clear fluid. Hand placed into the uterine cavity and with the assistance of gentle fundal pressure head delivered followed by body. No nuchal cord. Cord clamped and cut. Baby handed to nursing. Manual extraction of placenta. Uterus exteriorized and cleared of all clots. Hysterotomy closed in a running locking stitch followed by second vertical imbricating stitch. Hemostatic. Attention was turned to the right fallopian tube which was identified and carried from cornua to fimbriated end. LigaSure device utilized to remove fallopian tube. Fallopian tube identified and removed in a similar fashion utilizing LigaSure. Hemostatic. Uterus replaced into the abdominal cavity, hysterotomy inspected and found to be hemostatic along with mesosalpinx. Peritoneum closed in a running stitch. Muscle reapproximated with horizontal mattress suture. Fascia closed with a running stitch. Skin closed with running subcuticular stitch. At the end the procedure all needle, lap, sponge counts were correct x3. Urine output: 300 cc Amniotic Membrane Rupture Type: Artificial Amniotic Fluid Description: Clear Fluids Replaced: 1000 cc Esitmated Blood Loss (ml): 700 cc Gender: Female (1 minute): 9 (5 minute): 9 Delayed cord clamping: Yes Antibiotic Given: Ancef 2 grams IV x1 - Admit VTE Documentation VTE Mechan Device Prophylaxis: SCD's
--- NOTE | 2020-06-28 08:25 | DCINST_ITS ---
<Molly Reyes - Last Filed: 06/28/20 08:25> Discharge Diet: No Restrictions Discharge Activity: Return to Normal Activity, May not drive while taking narcotic pain medications., May Shower May resume sexual activity in: 6-8 weeks Weight Bearing Status: Weight bearing as tolerated Call your doctor if your incision/area has: Continuous Slow Oozing, Sudden Increased Bleeding, Increased Redness Call your doctor if you observe: Fever of 101 or Higher, Inability to have a bowel movement, Shortness of breath, Calf discomfort, Uncontrolled pain Cleanse incision/area with: Soap & Water Additional Instructions: If you experience any of the following, contact your healthcare provider. * Bleeding that soaks a pad every hour for 2 hours * Fever 100.4 or higher * Unrelieved incision or abdominal pain * Swelling, redness, discharge or bleeding from your incision or episiotomy site * Your incision begins to separate * Problems urinating (including inability to urinate or burning while urinating). * Visual changes * Severe headache * Flu-like symptoms * Pain or redness in one of both of your breasts * Pain, warmth, tenderness or swelling in your legs, especially the calf area * Frequent nausea and vomiting * Symptoms of depression or anxiety If you experience any of the following, call 911 or go to the nearest Emergency Room. * Chest pain * Problems breathing * Seizure activity * Partial or complete paralysis of a body part, slurred speech, weakness or drooping of the face, or a sudden inability to walk or hold your balance Allergies/Adverse Reactions: Allergies No Known Allergies Allergy (Verified 06/28/20 05:12) Medications to take at Discharge Vits96/Iron Fum/Folic [ Tablet] 1 tab PO DAILY 01/26/18 Oxycodone [Oxyir] 5 mg PO Q6H PRN PRN 4 Days #16 tablet 06/29/20 The following prescriptions were given: Oxycodone [Oxyir] 5 mg PO Q6H PRN PRN 4 Days #16 tablet PRN Reason: Pain Score 6-10 Transmission Status: Received by [facility]/pharmacy #[id number] Follow-Up: Call to make an appointment with your doctor for an incision check in 1-2 weeks. You will also need a 6 week post- follow up appointment. Test results from this visit will be discussed in further detail at your follow- up appointment, if applicable. Please Follow Up With: Molly Reyes, When: 2 weeks post op, 6 week Primary Care Physician: Elias Lee MD [Primary Care Provider] - <Haris Reyes - Last Filed: 06/29/20 08:31> Additional Instructions: If you experience any of the following, contact your healthcare provider. * Bleeding that soaks a pad every hour for 2 hours * Fever 100.4 or higher * Unrelieved incision or abdominal pain * Swelling, redness, discharge or bleeding from your incision or episiotomy site * Your incision begins to separate * Problems urinating (including inability to urinate or burning while urinating). * Visual changes * Severe headache * Flu-like symptoms * Pain or redness in one of both of your breasts * Pain, warmth, tenderness or swelling in your legs, especially the calf area * Frequent nausea and vomiting * Symptoms of depression or anxiety If you experience any of the following, call 911 or go to the nearest Emergency Room. * Chest pain * Problems breathing * Seizure activity * Partial or complete paralysis of a body part, slurred speech, weakness or drooping of the face, or a sudden inability to walk or hold your balance Follow-Up: Call to make an appointment with your doctor for an incision check in 1-2 weeks. You will also need a 6 week post- follow up appointment. Test results from this visit will be discussed in further detail at your follow- up appointment, if applicable.
[2020-06-28] MEDS: Oxytocin 30 units/NS 500 ml 30 UNITS/500 ML IV.SOLN 167 UNITS IV (08:45)
[2020-06-28] MEDS: Ketorolac 30 MG/ML Syringe IV ×3 (09:21→21:17)
[2020-06-28 11:30] LABS: Pathology Specimen OB SEE PATHOLOGY REPORT
[2020-06-28] MEDS: Lactated Ringers 1,000 ML 100 ML IV (11:46)
[2020-06-28] MEDS: Enoxaparin 40 MG/0.4 ML Syringe SC (19:45)
[2020-06-28] MEDS: 0.9% Saline Lock 10 ML Syringe IV (21:17)
[2020-06-29] MEDS: Ketorolac 30 MG/ML Syringe IV (03:05)
[2020-06-29] MEDS: 0.9% Saline Lock 10 ML Syringe IV (03:06)
[2020-06-29 03:16] VITALS: BP 93/57; PULSE 69; RESP 18; TEMP 36.1; O2SAT 96
[2020-06-29] MEDS: Acetaminophen 500 MG Tablet 1000 MG PO ×2 (03:24→09:37)
[2020-06-29 03:51] LABS: Hematocrit 26.7 % (37-47); Hemoglobin 8.4 g/dL (12.0-15.0); Mean Corp Hgb Conc 31.5 g/dL (32-36); Mean Corpuscular Hgb 29.7 pg (27.0-32.0); Mean Corpuscular Volume 94.3 fL (81-99); Mean Platelet Vol. 9.9 fl (6.2-12.0); Platelet Count 210 K/mm3 (150-450); RBC Distribution Width CV 13.5 % (11.6-14.6); RBC Distribution Width SD 46.3 fl (35.1-43.9); Red Blood Count 2.83 M/mm3 (4.2-5.4); White Blood Count 13.1 K/mm3 (4.4-11.0)
[2020-06-29 08:09] VITALS: BP 108/72; PULSE 71; RESP 16; TEMP 36; O2SAT 97
--- NOTE | 2020-06-29 08:29 | PN.OBGYN_ITS ---
Subjective: No overnight complaints. Pain well controlled. - Physical Exam Vitals/I&O's: Vital Signs Temp Pulse Resp BP Pulse Ox 96.8 F L 71 16 108/72 97 06/29/20 08:09 06/29/20 08:09 06/29/20 08:09 06/29/20 08:09 06/29/20 08:09 Oxygen Delivery Method Room Air Weight: 190 lb 3.2 oz Body Mass Index (BMI) 32.6 Intake and Output for Last 24 Hours 06/27/20 06/28/20 06/29/20 23:59 23:59 23:59 Intake Total 5430.00 / 5430.00 Output Total 2750 / 2750 650 / 650 Balance 2680.00 / 2680.00 -650 / -650 General: Alert, Oriented x3, Cooperative, No apparent distress HEENT: Atraumatic, PERRLA, Normocephalic Oral: Moist Mucosa Neck: Supple Abdomen: Soft, Non Tender, - - Bandage clean dry and intact Extremities: No clubbing, No cyanosis, No edema Neurological: Neuro grossly intact Psych/Mental Status: Normal Affect, Appropriate, Alert and oriented to time, place, person, mood and affect Laboratory Results 06/29/20 03:20: WBC 13.1 H, RBC 2.83 L, Hgb 8.4 L, Hct 26.7 L, MCV 94.3, MCH 29.7, MCHC 31.5 L, RDW Std Deviation 46.3 H, RDW Coeff of Burak 13.5, Plt Count 210, MPV 9.9 Current Medications Acetaminophen (Acetaminophen 500 Mg Tablet) 1,000 mg PO Q6H [facility] Last Admin: 06/29/20 03:24 Dose: 1,000 mg Documented by: Bisacodyl (Bisacodyl 10 Mg Suppository) 10 mg RC UD PRN PRN Reason: If no BM Diphenhydramine HCl (Diphenhydramine 25 Mg Capsule) 25 mg PO Q6H PRN PRN PRN Reason: ITCHING Stop: 06/29/20 08:41 Enoxaparin Sodium (Enoxaparin 40 Mg/0.4 Ml Syringe) 40 mg SC DAILY [facility] Last Admin: 06/28/20 19:45 Dose: 40 mg Documented by: Hydrocortisone (Hydrocortisone 2.5% Crm) 1 applic TOPICAL TID PRN PRN; Protocol PRN Reason: Discomfort Ibuprofen (Ibuprofen 600 Mg Tablet) 600 mg PO Q6H ALBERTA Nalbuphine HCl (Nalbuphine 10 Mg/Ml Ampul) 5 mg IV Q3H PRN PRN PRN Reason: ITCHING Stop: 06/29/20 08:41 Naloxone HCl (Naloxone 0.4 Mg/Ml Syringe) 0.02 mg IV Q1M PRN PRN Reason: RR <10 and pt unresponsive Ondansetron HCl (Ondansetron 4 Mg/2 Ml Vial) 4 mg IV Q4H PRN PRN PRN Reason: Nausea Oxycodone HCl (Oxycodone 5 Mg Tablet) 5 - 10 mg PO Q4H PRN PRN PRN Reason: Pain Score 4-10 Prochlorperazine Edisylate (Prochlorperazine 10 Mg/2 Ml Vial) 10 mg IV Q6H PRN PRN PRN Reason: NAUSEA Senna/Docusate Sodium (Senna/Docusate Sodium 1 Tablet) 1 - 2 tablet PO DAILY ALBERTA Last Admin: 06/28/20 10:03 Dose: Not Given Documented by: Simethicone (Simethicone 80 Mg Tablet) 80 mg PO PCHS PRN PRN Reason: Indigestion/stomach pain Sodium Chloride (0.9% Saline Lock 10 Ml Syringe) 5 - 15 ml IV UD PRN PRN Reason: SALINE FLUSH Last Admin: 06/29/20 03:06 Dose: 10 ml Documented by: Zolpidem Tartrate (Zolpidem Tartrate 5 Mg Tablet) 5 mg PO QHS PRN PRN PRN Reason: Insomnia Medical Necessity - Tobacco Use Smoking Status: Never smoker Assessment/Plan Postoperative day 1 status post repeat section bilateral tubal ligation. Pain well controlled. Breast-feeding. Okay to discharge home today. Follow-up in 2 weeks for incision check.
[2020-06-29] MEDS: Ibuprofen 600 MG Tablet PO (09:36)
[2020-06-29] MEDS: Senna/Docusate Sodium 1 Tablet PO (09:37)
[2020-06-29] MEDS: Enoxaparin 40 MG/0.4 ML Syringe SC (09:37)
[2020-06-29 12:30] VITALS: BP 106/69; PULSE 90; RESP 16; TEMP 36.1
--- NOTE | 2020-07-03 19:45 | NURSING ---
follow up phone call attempted. Left voicemail
== END 2020-06-29 12:30 | disposition home or self-care (01) | DRG 785 ==
PROVIDERS: Obstetrics & Gynecology; Admitting Provider Student in an Organized Health Care Education/Training Program; PCP Family Medicine; Referring Provider Student in an Organized Health Care Education/Training Program; Visit Provider Student in an Organized Health Care Education/Training Program
PROC: 10D00Z1 Extraction of Products of Conception, Low, Open Approach (ICD-10-PCS; CPT 59514; principal; 2020-06-28 07:15)
DX: O34.219 Maternal care for unspecified type scar from previous cesarean delivery (principal); Z37.0 Single live birth; Z3A.39 39 weeks gestation of pregnancy; Z30.2 Encounter for sterilization
CPT/HCPCS: 85025; 85027; 86850; 86900; 86901; 88302; 99218; 99251; J7120; A4216; G0378; G0463; J2405

== ENCOUNTER → 2024-10-26 | Outpatient (CLI) | payer BC, SELFPAY ==
--- OUTSIDE RECORDS SUMMARY | 2024-10-26 16:56 | XMS RPT_ITS | CCD ---
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 Name Role Phone BRAD STOVALL Attending Unavailable JEF OCAMPO Primary Care Unavailable Angelo Lee MD Primary Care Provider Angelo Lee MD Primary Care Provider Shruthi GODINEZ.Lora WATKINS Primary Care Provider LORA HAWKINS Primary Care Unavailable SANDRA RODRIGUEZ Attending Unavailable SHRUTHI, LORA Primary Care Unavailable SELF Referring Unavailable LORA HAWKINS Attending Unavailable LORA HAWKINS Attending Unavailable SHRUTHI, LORA Primary Care Unavailable LORA HAWKINS Referring Unavailable SHRUTHI, LORA Primary Care Unavailable LORA HAWKINS Primary Care Unavailable ROCHELLE MITCHELL Referring Unavailable Elias Lee Referring Unavailable Elias Lee Primary Care Unavailable Yareli Duarte Attending Unavailable Yareli Duarte Attending Unavailable Elias Lee Referring Unavailable Elias Lee Primary Care Unavailable Rosa BLANDON, Dr. Griffin Primary Care Provider Dr. Elias Lee MD Referring Provider 1( [phone] Gerald CERTIFIED MEETING PROFESSIONAL-CYareli Attending Provider Medications Current Medications Medication Drug Class(es) Dates Sig (Normalized) Sig (Original) ferrous sulfate 325 mg oral tablet (7 sources) Start: 10-22-2023 take 1 tablet by mouth three times daily Ferrous Sulfate (Feosol) 325 mg (65 mg iron) tablet Active 325 mg PO THREE TIMES A DAY October 22, 2023 12:00am Start: 08-31-2023 take 1 tablet by raymon once daily ferrous sulfate 325 mg (65 mg iron) tablet Indications: Iron deficiency anemia, unspecified iron deficiency anemia type Take 1 tablet by mouth once daily. 90 tablet 08/31/2023 Active hydrocortisone 25 mg/ml topical cream (1 source) Corticosteroid Start: 09-18-2023 End: 09-28-2023 hydrocortisone 2.5 % cream Indications: Rhus dermatitis Apply 1 application to affected area two times a day for 10 days. 28 g 1 09/18/2023 09/28/2023 Active MEDICATION, NON-DATABASE (1 source) take 1 tablet by mouth three times daily MEDICATION, NON-DATABASE Take 1 tablet by mouth three times a day. Source natural advanced ferrochel (60mg vitamin C, 25mcg B12, Iron as ferrochel bis-glycinate chelate 27mg) Takes TID Active MULTIVITAMIN ORAL (5 sources) take 1 tablet by mouth once daily as needed MULTIVITAMIN ORAL Take 1 tablet by mouth once daily as needed. Active take 1 tablet by raymon th once daily as needed MULTIVITAMIN ORAL Take 1 tablet by mouth once daily as needed. 0 Active Multivitamin tablet (1 source) Start: 10-26-2024 Multivitamin tablet Active 1 {tbl} PO daily October 26, 2024 12:00am nitrofurantoin, macrocrystals 25 mg / nitrofurantoin, monohydrate 75 mg oral capsule (1 source) Nitrofuran Antibacterial Start: 09-18-2023 End: 09-25-2023 take 1 capsule by mouth twice daily nitrofurantoin monohydrate and macrocrystal (MACROBID) 100 mg capsule Indications: Acute cystitis with hematuria Take 1 capsule by mouth two times a day for 7 days. 14 capsule 0 09/18/2023 09/25/2023 Active phenazopyridine hydrochloride 200 mg oral tablet (1 source) Start: 09-18-2023 End: 09-20-2023 take 1 tablet by mouth three times daily as needed for pain phenazopyridine (PYRIDIUM) 200 mg tablet Indications: Acute cystitis with hematuria Take 1 tablet by mouth three times a day as needed for pain for up to 2 days. 6 tablet 0 09/18/2023 09/20/2023 Active Completed/Discontinued Medications Medication Drug Class(es) Dates Sig (Normalized) Sig (Original) ascorbic acid 500 mg oral tablet (6 sources) Vitamin C Start: 08-31-2023 End: 09-01-2024 take 1 tablet by mouth once daily ascorbic acid, vitamin C, (VITAMIN C) 500 mg tablet Indications: Iron deficiency anemia, unspecified iron deficiency anemia type Take 1 tablet by mouth once daily. 90 tablet 08/31/2023 09/01/2024 Discontinued oxyCODONE hydrochloride 5 mg oral tablet (2 sources) Opioid Agonist Start: 06-29-2020 End: 07-03-2020 take 1 tablet by mouth every six hours as needed for pain Oxycodone 5 MG tablet Discontinued 5 mg PO EVERY 6 HOURS NEEDED as needed for Pain Score 6-10 16 4 0 June 29, 2020 July 02, 2020 12:00am July 03, 2020 12:03am Other acute postprocedural pain Start: 01-27-2018 End: 02-01-2018 take 1 tablet by mouth every six hours as needed for pain Oxycodone 5 MG tablet Discontinued 5 mg PO EVERY 6 HOURS NEEDED as needed for Mod-Severe Pain (4-10/10) 20 5 0 January 27, 2018 8:01am January 31, 2018 1:00am February 01, 2018 1:10am delivery delivered Postoperative abdominal pain Encounter for delivery without indication Unspecified abdominal pain vit/iron fum/folic ac ( VITAMIN ORAL) (3 sources) End: 08-27-2023 take 1 tablet by mouth once daily before mealtime vit/iron fum/folic ac ( VITAMIN ORAL) Take 1 tablet by mouth once daily. 0 08/27/2023 Discontinued take 1 tablet by raymon th once daily before mealtime vit/iron fum/folic ac ( VITAMIN ORAL) Take 1 tablet by mouth once daily. 0 Active Comment on above: Take 1 tablet by raymon th once daily. [id number] Fum-Folic 1 EACH tablet (1 source) Start: 01-26-2018 End: 10-22-2023 take 1 tablet by mouth once daily [id number] Fum-Folic 1 EACH tablet Discontinued 1 {tbl} PO DAILY January 26, 2018 1:00am October 22, 2023 10:22am Problems Active Problems Problem Classification Problem Date Documented Date Episodic/Chronic Allergic reactions (2 sources) Contact dermatitis due to Genus Toxicodendron; Translations: [Unspecified contact dermatitis due to plants, except food] Onset: 09-18-2023 09-18-2023 Episodic Deficiency and other anemia (3 sources) Hemoglobin low; Translations: [Anemia, unspecified] 08-28-2023 Episodic Deficiency and other anemia (6 sources) Iron deficiency anemia; Translations: [Iron deficiency anemia, unspecified] Onset: 07-04-2024 08-31-2023 Episodic Deficiency and other anemia (1 source) Iron deficiency anemia, unspecified; Translations: [Iron deficiency anemia, unspecified iron deficiency anemia type] Onset: 07-04-2024 Episodic Deficiency and other anemia (1 source) Anemia, unspecified; Translations: [Low hemoglobin] Onset: 09-01-2024 Episodic Genitourinary symptoms and ill-defined conditions (2 sources) Disorder of the urinary system; Translations: [Other symptoms and signs involving the genitourinary system] Onset: 09-18-2023 09-18-2023 Episodic Immunizations and screening for infectious disease (13 sources) Patient encounter status; Translations: [Encounter for immunization] Onset: 07-04-2024 01-27-2023 Episodic Nutritional deficiencies (5 sources) Vitamin D deficiency; Translations: [Vitamin D deficiency, unspecified] Onset: 07-04-2024 02-29-2024 Chronic Other lower respiratory disease (1 source) Cough; Translations: [Cough] Episodic Other nutritional; endocrine; and metabolic disorders (1 source) Weight increased; Translations: [Abnormal weight gain] 02-29-2024 Episodic Other screening for suspected conditions (not mental disorders or infectious disease) (4 sources) Encounter for screening for lipoid disorders; Translations: [Encounter for screening for cardiovascular disorders] Onset: 02-29-2024 Episodic Screening and history of mental health and substance abuse codes (2 sources) Encounter for screening for depression; Translations: [Encounter for screening examination for other mental health and behavioral disorders] Onset: 09-01-2024 Episodic Spondylosis; intervertebral disc disorders; other back problems (2 sources) Low back pain; Translations: [Low back pain] Onset: 07-01-2018 Episodic Urinary tract infections (2 sources) Acute cystitis; Translations: [Acute cystitis with hematuria] Onset: 09-18-2023 09-18-2023 Episodic Past or Other Problems Problem Classification Problem Date Documented Da te Episodic/Chronic Other nutritional; endocrine; and metabolic disorders (1 source) Abnormal weight gain; Translations: [Weight gain] Onset: 02-29-2024 Episodic Results Test Name Value Interpretation Reference Range Facility [facility] 09-01-2024 CNOV Office Visit (FAMPWS ) BETO CADENA ([id number]) 1985 F Date Time Provider Department 09/01/24 9:00 AM LORA HAWKINS During your visit today, we recorded the following information about you: Pulse Blood pressure Weight 60/minute 103/66 63 kg Lora Hawkins APRN.[facility] 09/01/2024 9:38 AM Signed Chief Complaint Patient presents with: 6 Month Exam HPI Beto Cadena is a 39 year old female who presents here today for Above Complaints.. Diet: oatmeal and 2 eggs for breakfast, quinoa, chicken and veggies for lunch, potatoes ground beef and potatoes for dinner. Snacks include apple and cottage cheese. Drinks predominately water. 1 cup of coffee with milk in the mornings. Exercise: 1-3 hours daily, running, walking and weight lifting. 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 Energy is good, denies any complaints. Sleep: 5-6 hours. Goes to sleep about 10/11pm and wakes up at 4am. Past medical history, appointments, medications, allergies reviewed. Previous Medical History PAST MEDICAL HISTORY Diagnosis Date NEGATIVE MEDICAL HISTORY Previous Surgical History PAST SURGICAL HISTORY Procedure Laterality Date PAST SURGICAL HISTORY OF 01/2018 x2 Family History FAMILY HISTORY Problem Relation Age of Onset Hypertension Mother Hypertension Father No Known Problems Brother No Known Problems Brother Cancer Maternal Grandmother unsure type Cancer Paternal Grandmother lymphoma Coronary Artery Disease Paternal Grandfather age 60s [place] No Known Problems Daughter Patient Allergies ALLERGIES No Known Allergies Current Medications Current Outpatient Medications on File Prior to Visit Medication Sig MULTIVITAMIN ORAL Take 1 tablet by mouth once daily as needed. ferrous sulfate 325 mg (65 mg iron) tablet Take 1 tablet by mouth once daily. ascorbic acid, vitamin C, (VITAMIN C) 500 mg tablet Take 1 tablet by mouth once daily. (Patient not taking: Reported on 09/18/2023) No current facility-administered medications on file prior to visit. Social History Social History Tobacco Use Smoking status: Never Passive exposure: Never Smokeless tobacco: Never Vaping Use Vaping status: Never Used Substance Use Topics Alcohol use: No Drug use: No Review of Symptoms REVIEW OF SYSTEMS See HPI EXAM: BP 103/66 Pulse 60 Wt 63 kg (138 lb 14.2 oz) LMP 05/22/2016 BMI 23.84 kg/m? Skin: Skin color, texture, turgor normal, no suspicious rashes or lesions. Head: Normocephalic, no masses, lesions, tenderness or abnormalities. Neck: Supple, no adenopathy; thyroid symmetric, normal size, no bruits. Lungs: Lungs clear to auscultation. No wheezing, rhonchi, rales.. Heart: RRR without murmur, gallop, or rubs. No ectopy. Abdomen: Normal abdominal exam, Abdomen soft, non-tender. Bowel sounds normal. No masses, organomegaly. Health Maintenance List Hepatitis C Screening Never done HIV Screening Never done Covid-19 Vaccine( season) due on 11/22/2023 Depression Screening due on 08/26/2024 Anxiety Screening due on 08/26/2024 Cervical Cancer Screening due on 01/21/2025 Influenza Vaccine(Season Ended) due on 11/21/2024 DTaP,Tdap,Td Vaccine(2 - Td or Tdap) due on 08/15/2026 Hepatitis B Vaccine Discontinued Data reviewed Latest Ref Rng 08/29/2024 WBC 3.70 - 11.00 k/uL 7.28 RBC 3.90 - 5.20 m/uL 4.35 Hemoglobin 11.5 - 15.5 g/dL 14.0 Hematocrit 36.0 - 46.0 % 43.4 MCV 80.0 - 100.0 fL 99.8 MCH 26.0 - 34.0 pg 32.2 MCHC 30.5 - 36.0 g/dL 32.3 RDW-CV 11.5 - 15.0 % 11.7 Platelet Count 150 - 400 k/uL 277 MPV 9.0 - 12.7 fL 10.1 Neut% % 59.7 Abs Neut (ANC) 1.45 - 7.50 k/uL 4.35 Lymph% % 32.0 Abs Lymph 1.00 - 4.00 k/uL 2.33 Hemphill% % 6.3 Abs Hemphill <0.87 k/uL 0.46 Eosin% % 1.0 Abs Eosin <0.46 k/uL 0.07 Baso% % 0.7 Abs Baso <0.11 k/uL 0.05 Immature Gran % % 0.3 IMMATURE GRANS (ABS) <0.10 k/uL <0.03 NRBC /100 WBC 0.0 Absolute nRBC <0.01 k/uL <0.01 DTYPE Auto Total Cholesterol, Nonfasting <200 mg/dL 192 Triglycerides, Nonfasting <150 mg/dL 56 HDL Cholesterol, Nonfasting >39 mg/dL 76 LDL Cholesterol Calculated, Nonfasting <100 mg/dL 105 (H) Non HDL Cholesterol, Nonfasting <130 mg/dL 116 VLDL Cholesterol, Nonfasting <30 mg/dL 9 Total Chol/HDL Ratio, Nonfasting <5.10 mg/dL 2.53 LDL/HDL Ratio, Nonfasting <2.54 mg/dL 1.38 Iron 41 - 186 ug/dL 83 TIBC 232 - 386 ug/dL 267 Transferrin Saturation 15.0 - 57.0 % 31.1 Hemoglobin A1C 4.3 - 5.6 % 5.3 Estimated Average Glucose mg/dL 105 Vitamin D 25 Hydroxy 31.0 - 80.0 ng/mL 73.7 ASSESSMENT/PLAN: 1. Iron deficiency anemia, unspecified iron deficiency anemia type - ICD9: 280.9, ICD10: D50.9 (primary diagnosis) -Stable 2. Screening for depression - ICD9: V79.0, ICD10: Z13.31 - DEPRESSION SCREENING 3. Encounter for screening examination for other mental health and behavioral (more content not included)... Normal [facility] 25(OH)D3 [facility] 2024 25-hydroxyvitamin D3 [Mass/Vol] 73.7 ng/mL Normal 31.0-80.0 [facility] Comment on above: Order Comment: Speci men Type: BLOOD SPECIMEN Ordering Facility: [facility] Address: [address] [place] [id number] Result Comment: Clas sification of 25 [place] Vitamin D status: Deficiency/Insufficiency: < or = 30 ng/ml. Sufficiency/Optimal Levels: 31-80 ng/mL Toxicity: > 100 ng/mL. Test performed by chemiluminescent immunoassay. Performed By: #### 1 989-3 #### [facility] CLIA [id number] [address] [place] [address] [place] CBC W Auto Differential pane l (Bld)on 08-29-2024 Basophils (Bld) [#/Vol] 0.05 10*3/uL Normal <0.11 [facility] Comment on above: Order Comment: Speci men Type: BLOOD SPECIMEN Ordering Facility: [facility] Address: [address] [place] [address] Performed By: #### 5 7021-8 #### [facility] CLIA [id number] [address] [place] [address] [place] Basophils/100 WBC (Bld) 0.7 % Normal [facility] Comment on above: Order Comment: Speci men Type: BLOOD SPECIMEN Ordering Facility: [facility] Address: [address] [place] [address] Performed By: #### 5 7021-8 #### [facility] CLIA [id number] [address] [place] [address] [place] Differential cell count method Nom (Bld) Auto Normal [facility] Comment on above: Order Comment: Speci men Type: BLOOD SPECIMEN Ordering Facility: [facility] Address: [address] [place] [address] Performed By: #### 5 7021-8 #### [facility] CLIA [id number] [address] [place] [address] [place] Eosinophils (Bld) [#/Vol] 0.07 10*3/uL Normal <0.46 [facility] Comment on above: Order Comment: Speci men Type: BLOOD SPECIMEN Ordering Facility: [facility] Address: [address] [place] [address] Performed By: #### 5 7021-8 #### [facility] CLIA [id number] [address] [place] [address] [place] Eosinophils/100 WBC (Bld) 1.0 % Normal [facility] Comment on above: Order Comment: Speci men Type: BLOOD SPECIMEN Ordering Facility: [facility] Address: [address] [place] [address] Performed By: #### 5 7021-8 #### [facility] CLIA [id number] [address] [place] [address] [place] Erythrocyte distribution width (RBC) [Ratio] 11.7 % Normal 11.5-15.0 [facility] Comment on above: Order Comment: Speci men Type: BLOOD SPECIMEN Ordering Facility: [facility] Address: [address] [place] [address] Performed By: #### 5 7021-8 #### [facility] CLIA [id number] [address] [place] [address] [place] Hematocrit (Bld) [Volume fraction] 43.4 % Normal 36.0-46.0 [facility] Comment on above: Order Comment: Speci men Type: BLOOD SPECIMEN Ordering Facility: [facility] Address: [address] [place] [address] Performed By: #### 5 7021-8 #### [facility] CLIA [id number] [address] [place] [address] [place] Hemoglobin (Bld) [Mass/Vol] 14.0 g/dL Normal 11.5-15.5 [facility] Comment on above: Order Comment: Speci men Type: BLOOD SPECIMEN Ordering Facility: [facility] Address: [address] [place] [address] Performed By: #### 5 7021-8 #### [facility] CLIA [id number] [address] [place] [address] [place] Immature granulocytes (Bld) [#/Vol] 10*3/uL Normal <0.10 [facility] Comment on above: Order Comment: Speci men Type: BLOOD SPECIMEN Ordering Facility: [facility] Address: [address] [place] [address] Performed By: #### 5 7021-8 #### [facility] CLIA [id number] [address] [place] [address] [place] Immature granulocytes/100 WBC (Bld) 0.3 % Normal [facility] Comment on above: Order Comment: Speci men Type: BLOOD SPECIMEN Ordering Facility: [facility] Address: [address] [place] [address] Performed By: #### 5 7021-8 #### [facility] CLIA [id number] [address] [place] [address] [place] Lymphocytes (Bld) [#/Vol] 2.33 10*3/uL Normal 1.00-4.00 [facility] Comment on above: Order Comment: Speci men Type: BLOOD SPECIMEN Ordering Facility: [facility] Address: [address] [place] [address] Performed By: #### 5 7021-8 #### [facility] CLIA [id number] [address] [place] [address] [place] Lymphocytes/100 WBC (Bld) 32.0 % Normal [facility] Comment on above: Order Comment: Speci men Type: BLOOD SPECIMEN Ordering Facility: [facility] Address: [address] [place] [address] Performed By: #### 5 7021-8 #### [facility] CLIA [id number] [address] [place] [address] [place] MCH (RBC) [Entitic mass] 32.2 pg Normal 26.0-34.0 [facility] Comment on above: Order Comment: Speci men Type: BLOOD SPECIMEN Ordering Facility: [facility] Address: [address] [place] [address] Performed By: #### 5 7021-8 #### [facility] CLIA [id number] [address] [place] [address] [place] MCHC (RBC) [Mass/Vol] 32.3 g/dL Normal 30.5-36.0 [facility] Comment on above: Order Comment: Speci men Type: BLOOD SPECIMEN Ordering Facility: [facility] Address: [address] [place] [address] Performed By: #### 5 7021-8 #### [facility] CLIA [id number] [address] [place] [address] [place] MCV (RBC) [Entitic vol] 99.8 fL Normal 80.0-100.0 [facility] Comment on above: Order Comment: Speci men Type: BLOOD SPECIMEN Ordering Facility: [facility] Address: [address] [place] [address] Performed By: #### 5 7021-8 #### [facility] CLIA [id number] [address] [place] [address] [place] Monocytes (Bld) [#/Vol] 0.46 10*3/uL Normal <0.87 [facility] Comment on above: Order Comment: Speci men Type: BLOOD SPECIMEN Ordering Facility: [facility] Address: [address] [place] [address] Performed By: #### 5 7021-8 #### [facility] CLIA [id number] [address] [place] [address] [place] Monocytes/100 WBC (Bld) 6.3 % Normal [facility] Comment on above: Order Comment: Speci men Type: BLOOD SPECIMEN Ordering Facility: [facility] Address: [address] [place] [address] Performed By: #### 5 7021-8 #### [facility] CLIA [id number] [address] [place] [address] [place] Neutrophils (Bld) [#/Vol] 4.35 10*3/uL Normal 1.45-7.50 [facility] Comment on above: Order Comment: Speci men Type: BLOOD SPECIMEN Ordering Facility: [facility] Address: [address] [place] [address] Performed By: #### 5 7021-8 #### [facility] CLIA [id number] [address] [place] [address] [place] Neutrophils/100 WBC (Bld) 59.7 % Normal [facility] Comment on above: Order Comment: Speci men Type: BLOOD SPECIMEN Ordering Facility: [facility] Address: [address] [place] [address] Performed By: #### 5 7021-8 #### [facility] CLIA [id number] [address] [place] [address] [place] Nucleated RBC (Bld) [#/Vol] 10*3/uL Normal <0.01 [facility] Comment on above: Order Comment: Speci men Type: BLOOD SPECIMEN Ordering Facility: [facility] Address: [address] [place] [address] Performed By: #### 5 7021-8 #### [facility] CLIA [id number] [address] [place] [address] [place] Nucleated RBC/100 WBC (Bld) [Ratio] 0.0 /100 WBC Normal [facility] Comment on above: Order Comment: Speci men Type: BLOOD SPECIMEN Ordering Facility: [facility] Address: [address] [place] [address] Performed By: #### 5 7021-8 #### [facility] CLIA [id number] [address] [place] [address] [place] Platelet mean volume (Bld) [Entitic vol] 10.1 fL Normal 9.0-12.7 [facility] Comment on above: Order Comment: Speci men Type: BLOOD SPECIMEN Ordering Facility: [facility] Address: [address] [place] [address] Performed By: #### 5 7021-8 #### [facility] CLIA [id number] [address] [place] [address] [place] Platelets (Bld) [#/Vol] 277 10*3/uL Normal 150-400 [facility] Comment on above: Order Comment: Speci men Type: BLOOD SPECIMEN Ordering Facility: [facility] Address: [address] [place] [address] Performed By: #### 5 7021-8 #### [facility] CLIA [id number] [address] [place] [address] [place] RBC (Bld) [#/Vol] 4.35 10*6/uL Normal 3.90-5.20 [facility] Comment on above: Order Comment: Speci men Type: BLOOD SPECIMEN Ordering Facility: [facility] Address: [address] [place] [address] Performed By: #### 5 7021-8 #### [facility] CLIA [id number] [address] [place] [address] [place] WBC (Bld) [#/Vol] 7.28 10*3/uL Normal 3.70-11.00 [facility] Comment on above: Order Comment: Speci men Type: BLOOD SPECIMEN Ordering Facility: [facility] Address: [address] [place] [address] Performed By: #### 5 7021-8 #### [facility] CLIA [id number] [address] [place] [address] [place] HbA1c (Bld)on 08-29-2024 Average glucose Estimated from glycated hemoglobin (Bld) [Mass/Vol] 105 mg/dL Normal [facility] Comment on above: Order Comment: Speci men Type: BLOOD SPECIMEN Ordering Facility: [facility] Address: [address] [place] [address] Result Comment: eAG: (Estimated average glucose) is a calculated value from HgbA1c and is retail service representative of the average blood glucose level in the last 2-3 month period. Performed By: #### 5 7021-8 #### [facility] [facility] CLIA [id number] [address] [place] [address] [place] HbA1c (Bld) [Mass fraction] 5.3 % Normal 4.3-5.6 [facility] Comment on above: Order Comment: Speci men Type: BLOOD SPECIMEN Ordering Facility: [facility] Address: [address] [place] [address] Result Comment: Amer ican Diabetes Association guidelines indicate that patients with HgbA1c in the range 5.7-6.4% are at increased risk for development of diabetes, and intervention by lifestyle modification may be beneficial. HgbA1c greater or equal to 6.5% is considered diagnostic of diabetes. Performed By: #### 5 7021-8 #### [facility] CLIA [id number] [address] [place] [address] [place] Iron and Iron binding capaci ty panelon 08-29-2024 Iron [Mass/Vol] 83 ug/dL Normal 41-186 [facility] Comment on above: Order Comment: Speci men Type: BLOOD SPECIMEN Ordering Facility: [facility] Address: [address] [place] [address] Performed By: #### 5 0190-8, LIPNF #### [facility] CLIA [id number] [address] [place] [address] [place] Iron binding capacity [Mass/Vol] 267 ug/dL Normal 232-386 [facility] Comment on above: Order Comment: Speci men Type: BLOOD SPECIMEN Ordering Facility: [facility] Address: [address] [place] [address] Performed By: #### 5 0190-8, LIPNF #### [facility] CLIA [id number] [address] [place] [address] [place] Iron/TIBC [Molar ratio] 31.1 % Normal 15.0-57.0 [facility] Comment on above: Order Comment: Speci men Type: BLOOD SPECIMEN Ordering Facility: [facility] Address: [address] [place] [address] Performed By: #### 5 0190-8, LIPNF #### [facility] CLIA [id number] [address] [place] [address] OF [place] LIPID PANEL, NONFASTINGon Cholesterol [Mass/Vol] 192 mg/dL Normal <200 [facility] Comment on above: Order Comment: Amber jenkins Type: BLOOD SPECIMEN Ordering Facility: [facility] Address: [address] [place] [address] Result Comment: <200 mg/dL, Desirable 200-239 mg/dL, Borderline high >239 mg/dL, High Performed By: #### 5 0190-8, LIPNF #### [facility] CLIA [id number] [address] [place] [address] [place] HDL CHOLESTEROL, NF 76 mg/dL Normal >39 [facility] Comment on above: Order Comment: Amber jenkins Type: BLOOD SPECIMEN Ordering Facility: [facility] Address: [address] [place] [address] Result Comment: 40-5 9 mg/dL, Acceptable >59 mg/dL, High: Negative risk factor for coronary heart disease <40 mg/dL, Low: Positive risk factor for coronary heart disease Performed By: #### 5 0190-8, LIPNF #### [facility] CLIA [id number] [address] [place] [address] OF [place] LDL CHOLESTEROL CALCULATED, NF 105 mg/dL High <100 [facility] Comment on above: Order Comment: Amber jenkins Type: BLOOD SPECIMEN Ordering Facility: [facility] Address: [address] [place] [address] Result Comment: <100 mg/dL, Optimal 100-129 mg/dL, Near optimal/above optimal 130-159 mg/dL, Borderline high 160-189 mg/dL, High >189 mg/dL, Very high Secondary prevention optimal LDL Cholesterol levels are recommended to be <70 mg/dL LDL cholesterol is calculated using the Haddad-NIH equation. Performed By: #### 5 0190-8, LIPNF #### [facility] CLIA [id number] [address] [place] [address] [place] LDL/HDL RATIO, NF 1.38 mg/dL Normal <2.54 [facility] Comment on above: Order Comment: Speci men Type: BLOOD SPECIMEN Ordering Facility: [facility] Address: [address] [place] [address] Result Comment: Refe rence: 1. National Cholesterol Education Program ATP III Guideline At-A-Glance Quick Desk Reference: National Heart, Lung, and Blood [place]. National Institutes of Health. 2001: NIH Publication No. 01-3305. 2. An International Atherosclerosis Society position paper: global recommendations for the management of dyslipidemia: executive summary, Atherosclerosis. 2014: 232(2):410-413. Performed By: #### 5 0190-8, LIPNF #### [facility] CLIA [id number] [address] [place] [address] [place] NON HDL CHOL, NF 116 mg/dL Normal <[address] [facility] Comment on above: Order Comment: Hanseli alice Type: BLOOD SPECIMEN Ordering Facility: [facility] Address: [address] [place] [address] Result Comment: <130 mg/dL, Optimal 130-159 mg/dL, Near optimal/above optimal 160-189 mg/dL, Borderline high 190-219 mg/dL, High >219 mg/dL, Very high Secondary prevention optimal non HDL Cholesterol levels are recommended to be <100 mg/dL Performed By: #### 5 0190-8, LIPNF #### [facility] CLIA [id number] [address] [place] [address] OF [place] T CHOL/HDL RATIO NF 2.53 mg/dL Normal <5.10 [facility] Comment on above: Order Comment: Hanseli men Type: BLOOD SPECIMEN Ordering Facility: [facility] Address: [address] [place] [address] Performed By: #### 5 0190-8, LIPNF #### [facility] CLIA [id number] [address] [place] [address] [place] TRIGLYCERIDES, NF 56 mg/dL Normal <150 [facility] Comment on above: Order Comment: Speci men Type: BLOOD SPECIMEN Ordering Facility: [facility] Address: [address] [place] [address] Result Comment: <150 mg/dL, Normal 150-199 mg/dL, Borderline high 200-499 mg/dL, High >499 mg/dL, Very high Performed By: #### 5 0190-8, LIPNF #### [facility] CLIA [id number] [address] [place] [address] [place] VLDL CHOLESTEROL, NF 9 mg/dL Normal <30 [facility] Comment on above: Order Comment: Speci men Type: BLOOD SPECIMEN Ordering Facility: [facility] Address: [address] [place] [address] Performed By: #### 5 0190-8, LIPNF #### [facility] CLIA [id number] [address] [place] [address] OF [facility] CNPKaye 07-04-2024 CNPN Telephone (4CQ) BETO CADENA ([id number]) 1985 F Date Time Provider Department 07/04/24 LORA HAWKINS 4CQ During your visit today, we recorded the following information about you: Liliana Sousa 07/04/2024 11:51 AM Signed Patient is calling to arrange her repeat labs in 3-6 mo from 02/2024, Please place lab orders. Rochelle Mitchell MD 07/04/2024 9:29 PM Signed Let patient know lab orders placed. Also her appt in August should have been for a complete PE. Last one was done 08/2023. Can this be corrected. Marta Magdaleno MA 07/05/2024 1:33 PM Signed Left message for patient to return call to office Marta Magdaleno MA Allergies As of Date: 07/04/2024 (No Known Allergies) Date Reviewed: 02/29/2024 Reviewed by: Marta Magdaleno MA - Fully Assessed Reason for Visit: Orders [681] Primary Visit Diagnosis:Iron deficiency anemia, unspecified iron deficiency anemia type [D50.9] Other Visit Diagnoses:Vitamin D deficiency [E55.9] Well adult exam [Z00.00] Encounter for lipid screening for cardiovascular disease [Z13.220, Z13.6] Encounter for screening for diabetes mellitus [Z13.1] Order(s):HEMOGLOBIN A1C [PXVGQ3J] Order #: [id number] FUTURE LIPID PANEL, NONFASTING [SQLIPNF] Order #: [id number] FUTURE VITAMIN D 25 HYDROXY [SQVITD] Order #: [id number] FUTURE IRON AND TIBC [SQIRON] Order #: [id number] FUTURE COMPLETE BLOOD COUNT AND DIFFERENTIAL [SQCBCDIF] Order #: [id number] FUTURE Prescriptions as of 07/25/2024 - MULTIVITAMIN ORAL Take 1 tablet by mouth once daily as needed. - ferrous sulfate 325 mg (65 mg iron) tablet Take 1 tablet by mouth once daily. - ascorbic acid, vitamin C, (VITAMIN C) 500 mg tablet Take 1 tablet by mouth once daily. Problem List As Of Date 07/04/2024 Noted Resolved Iron deficiency anemia [D50.9] 07/04/2024 Vitamin D deficiency [E55.9] 07/04/2024 Well adult exam [Z00.00] 07/04/2024 Encounter for lipid screening for cardiovascula* Encounter for screening for diabetes mellitus [*07/04/2024 Encounter Status:Closed by LILIANA SOUSA on 07/25/24 [facility] Fito 03-01-2024 JUNEN Telephone (FAMPWS) BETO CADENA ([id number]) 1985 F Date Time Provider Department 03/01/24 LORA HAWKINS During your visit today, we recorded the following information about you: Lora Hawkins APRN.STORE TEAM LEADER 03/01/2024 8:08 AM Signed Please let patient know her t3 is just slightly low. Her other labs are normal. This is not anything that needs intervention on at the time. We can repeat labs in 3-6 months if needed. Aurea Fuentes RN 03/01/2024 9:25 AM Signed Patient calls and notified of results and providers instructions. Patient verbalizes understanding. Aurea Fuentes RN Allergies As of Date: 03/01/2024 (No Known Allergies) Date Reviewed: 02/29/2024 Reviewed by: Marta Magdaleno MA - Fully Assessed Reason for Visit: Results [95] Prescriptions as of 03/01/2024 - MULTIVITAMIN ORAL Take 1 tablet by mouth once daily as needed. - ferrous sulfate 325 mg (65 mg iron) tablet Take 1 tablet by mouth once daily. - ascorbic acid, vitamin C, (VITAMIN C) 500 mg tablet Take 1 tablet by mouth once daily. Problem List As Of Date: 03/01/2024 (None) Encounter Status:Closed by AUREA FUENTES on 03/01/24 Normal [facility] 25(OH)D3 [facility] 2023 25-hydroxyvitamin D3 [Mass/Vol] 45.6 ng/mL Normal 31.0-80.0 [facility] Comment on above: Order Comment: Speci men Type: BLOOD SPECIMEN Ordering Facility: [facility] Address: [address] [place] [address] Performed By: #### 1 989-3 #### [facility] CLIA [id number] [address] [place] [address] [id number] [address] [place] CBC W Auto Differential pane l (Bld)on 02-29-2024 Basophils (Bld) [#/Vol] 0.05 10*3/uL Normal <0.11 [facility] Comment on above: Order Comment: Speci men Type: BLOOD SPECIMEN Ordering Facility: [facility] Address: [address] [place] [address] Performed By: #### 5 7021-8 #### [facility] CLIA [id number] [address] [place] [address] [place] Basophils/100 WBC (Bld) 0.9 % Normal [facility] Comment on above: Order Comment: Speci men Type: BLOOD SPECIMEN Ordering Facility: [facility] Address: [address] [place] [address] Performed By: #### 5 7021-8 #### [facility] CLIA [id number] [address] [place] [address] [place] Differential cell count method Nom (Bld) Auto Normal [facility] Comment on above: Order Comment: Speci men Type: BLOOD SPECIMEN Ordering Facility: [facility] Address: [address] [place] [address] Performed By: #### 5 7021-8 #### [facility] CLIA [id number] [address] [place] [address] [place] Eosinophils (Bld) [#/Vol] 0.07 10*3/uL Normal <0.46 [facility] Comment on above: Order Comment: Speci men Type: BLOOD SPECIMEN Ordering Facility: [facility] Address: [address] [place] [address] Performed By: #### 5 7021-8 #### [facility] CLIA [id number] [address] [place] [address] [place] Eosinophils/100 WBC (Bld) 1.2 % Normal [facility] Comment on above: Order Comment: Speci men Type: BLOOD SPECIMEN Ordering Facility: [facility] Address: [address] [place] [address] Performed By: #### 5 7021-8 #### [facility] CLIA [id number] [address] [place] [address] [place] Erythrocyte distribution width (RBC) [Ratio] 12.0 % Normal 11.5-15.0 [facility] Comment on above: Order Comment: Speci men Type: BLOOD SPECIMEN Ordering Facility: [facility] Address: [address] [place] [address] Performed By: #### 5 7021-8 #### [facility] CLIA [id number] [address] [place] [address] [place] Hematocrit (Bld) [Volume fraction] 41.7 % Normal 36.0-46.0 [facility] Comment on above: Order Comment: Speci men Type: BLOOD SPECIMEN Ordering Facility: [facility] Address: [address] [place] [address] Performed By: #### 5 7021-8 #### [facility] CLIA [id number] [address] [place] [address] [place] Hemoglobin (Bld) [Mass/Vol] 13.8 g/dL Normal 11.5-15.5 [facility] Comment on above: Order Comment: Speci men Type: BLOOD SPECIMEN Ordering Facility: [facility] Address: [address] [place] [address] Performed By: #### 5 7021-8 #### [facility] CLIA [id number] [address] [place] [address] [place] Immature granulocytes (Bld) [#/Vol] 10*3/uL Normal <0.10 [facility] Comment on above: Order Comment: Speci men Type: BLOOD SPECIMEN Ordering Facility: [facility] Address: [address] [place] [address] Performed By: #### 5 7021-8 #### [facility] CLIA [id number] [address] [place] [address] [place] Immature granulocytes/100 WBC (Bld) 0.3 % Normal [facility] Comment on above: Order Comment: Speci men Type: BLOOD SPECIMEN Ordering Facility: [facility] Address: [address] [place] [address] Performed By: #### 5 7021-8 #### [facility] CLIA [id number] [address] [place] [address] [place] Lymphocytes (Bld) [#/Vol] 2.04 10*3/uL Normal 1.00-4.00 [facility] Comment on above: Order Comment: Speci men Type: BLOOD SPECIMEN Ordering Facility: [facility] Address: [address] [place] [address] Performed By: #### 5 7021-8 #### [facility] CLIA [id number] [address] [place] [address] [place] Lymphocytes/100 WBC (Bld) 35.4 % Normal [facility] Comment on above: Order Comment: Speci men Type: BLOOD SPECIMEN Ordering Facility: [facility] Address: [address] [place] [address] Performed By: #### 5 7021-8 #### [facility] CLIA [id number] [address] [place] [address] [place] MCH (RBC) [Entitic mass] 32.9 pg Normal 26.0-34.0 [facility] Comment on above: Order Comment: Speci men Type: BLOOD SPECIMEN Ordering Facility: [facility] Address: [address] [place] [address] Performed By: #### 5 7021-8 #### [facility] CLIA [id number] [address] [place] [address] [place] MCHC (RBC) [Mass/Vol] 33.1 g/dL Normal 30.5-36.0 [facility] Comment on above: Order Comment: Speci men Type: BLOOD SPECIMEN Ordering Facility: [facility] Address: [address] [place] [address] Performed By: #### 5 7021-8 #### [facility] CLIA [id number] [address] [place] [address] [place] MCV (RBC) [Entitic vol] 99.3 fL Normal 80.0-100.0 [facility] Comment on above: Order Comment: Speci men Type: BLOOD SPECIMEN Ordering Facility: [facility] Address: [address] [place] [address] Performed By: #### 5 7021-8 #### [facility] CLIA [id number] [address] [place] [address] [place] Monocytes (Bld) [#/Vol] 0.41 10*3/uL Normal <0.87 [facility] Comment on above: Order Comment: Speci men Type: BLOOD SPECIMEN Ordering Facility: [facility] Address: [address] [place] [address] Performed By: #### 5 7021-8 #### [facility] CLIA [id number] [address] [place] [address] [place] Monocytes/100 WBC (Bld) 7.1 % Normal [facility] Comment on above: Order Comment: Speci men Type: BLOOD SPECIMEN Ordering Facility: [facility] Address: [address] [place] [address] Performed By: #### 5 7021-8 #### [facility] CLIA [id number] [address] [place] [address] [place] Neutrophils (Bld) [#/Vol] 3.18 10*3/uL Normal 1.45-7.50 [facility] Comment on above: Order Comment: Speci men Type: BLOOD SPECIMEN Ordering Facility: [facility] Address: [address] [place] [address] Performed By: #### 5 7021-8 #### [facility] CLIA [id number] [address] [place] [address] [place] Neutrophils/100 WBC (Bld) 55.1 % Normal [facility] Comment on above: Order Comment: Speci men Type: BLOOD SPECIMEN Ordering Facility: [facility] Address: [address] [place] [address] Performed By: #### 5 7021-8 #### [facility] CLIA [id number] [address] [place] [address] [place] Nucleated RBC (Bld) [#/Vol] 10*3/uL Normal <0.01 [facility] Comment on above: Order Comment: Speci men Type: BLOOD SPECIMEN Ordering Facility: [facility] Address: [address] [place] [address] Performed By: #### 5 7021-8 #### [facility] CLIA [id number] [address] [place] [address] [place] Nucleated RBC/100 WBC (Bld) [Ratio] 0.0 /100 WBC Normal [facility] Comment on above: Order Comment: Speci men Type: BLOOD SPECIMEN Ordering Facility: [facility] Address: [address] [place] [address] Performed By: #### 5 7021-8 #### [facility] CLIA [id number] [address] [place] [address] [place] Platelet mean volume (Bld) [Entitic vol] 10.4 fL Normal 9.0-12.7 [facility] Comment on above: Order Comment: Speci men Type: BLOOD SPECIMEN Ordering Facility: [facility] Address: [address] [place] [address] Performed By: #### 5 7021-8 #### [facility] CLIA [id number] [address] [place] [address] [place] Platelets (Bld) [#/Vol] 284 10*3/uL Normal 150-400 [facility] Comment on above: Order Comment: Speci men Type: BLOOD SPECIMEN Ordering Facility: [facility] Address: [address] [place] [address] Performed By: #### 5 7021-8 #### [facility] CLIA [id number] [address] [place] [address] [place] RBC (Bld) [#/Vol] 4.20 10*6/uL Normal 3.90-5.20 [facility] Comment on above: Order Comment: Speci men Type: BLOOD SPECIMEN Ordering Facility: [facility] Address: [address] [place] [address] Performed By: #### 5 7021-8 #### [facility] CLIA [id number] [address] [place] [address] [place] WBC (Bld) [#/Vol] 5.77 10*3/uL Normal 3.70-11.00 [facility] Comment on above: Order Comment: Speci men Type: BLOOD SPECIMEN Ordering Facility: [facility] Address: [address] [place] [address] Performed By: #### 5 7021-8 #### [facility] CLIA [id number] [address] [place] [address] [place] CNOVon 02-29-2024 CNOV Office Visit (ERINWS ) BETO CADENA ([id number]) 1985 F Date Time Provider Department 02/29/24 9:40 AM LORA HAWKINS During your visit today, we recorded the following information about you: Pulse Respiration Blood pressure Weight 54/minute 14/minute 107/70 63 kg Lora Hawkins, HEALTHCARE REPRESENTATIVEKACIE 02/29/2024 9:57 AM Signed Chief Complaint Patient presents with: 6 Month Exam HPI Beto Cadena is a 38 year old female who presents here today for Above Complaints.. Patient presents for routine follow up. Patient reports she has noticed a significant improvement in her fatigue since starting iron and vitamin c. Past medical history, appointments, medications, allergies reviewed. Previous Medical History PAST MEDICAL HISTORY Diagnosis Date NEGATIVE MEDICAL HISTORY Previous Surgical History PAST SURGICAL HISTORY Procedure Laterality Date PAST SURGICAL HISTORY OF 01/2018 x2 Family History FAMILY HISTORY Problem Relation Age of Onset Hypertension Mother Hypertension Father No Known Problems Brother No Known Problems Brother Cancer Maternal Grandmother unsure type Cancer Paternal Grandmother lymphoma Coronary Artery Disease Paternal Grandfather age 60s [place] No Known Problems Daughter Patient Allergies ALLERGIES No Known Allergies Current Medications Current Outpatient Medications on File Prior to Visit Medication Sig MULTIVITAMIN ORAL Take 1 tablet by mouth once daily as needed. ferrous sulfate 325 mg (65 mg iron) tablet Take 1 tablet by mouth once daily. ascorbic acid, vitamin C, (VITAMIN C) 500 mg tablet Take 1 tablet by mouth once daily. (Patient not taking: Reported on 09/18/2023) No current facility-administered medications on file prior to visit. Social History Social History Tobacco Use Smoking status: Never Passive exposure: Never Smokeless tobacco: Never Vaping Use Vaping status: Never Used Substance Use Topics Alcohol use: No Drug use: No Review of Symptoms REVIEW OF SYSTEMS SEE HPI EXAM: BP 107/70 Pulse (!) 54 Resp 14 Wt 63 kg (139 lb) LMP 05/22/2016 BMI 23.86 kg/m? General Appearance: Well appearing, alert, in no acute distress, well-hydrated, well nourished. Lungs: Lungs clear to auscultation. No wheezing, rhonchi, rales.. Heart: RRR without murmur, gallop, or rubs. No ectopy. Peripheral Pulses: Normal. Health Maintenance List Covid-19 Vaccine( season) due on 11/22/2023 Hepatitis C Screening due on 08/26/2024 HIV Screening due on 08/26/2024 Influenza Vaccine(1) due on 09/19/2024 Depression Screening due on 08/26/2024 Anxiety Screening due on 08/26/2024 Cervical Cancer Screening due on 01/21/2025 DTaP,Tdap,Td Vaccine(2 - Td or Tdap) due on 08/15/2026 HPV Vaccine Aged Out Hepatitis B Vaccine Discontinued ASSESSMENT/PLAN: 1. Iron deficiency anemia, unspecified iron deficiency anemia type - ICD9: 280.9, ICD10: D50.9 (primary diagnosis) - IRON AND TIBC - FERRITIN - COMPLETE BLOOD COUNT AND DIFFERENTIAL 2. Vitamin D deficiency - ICD9: 268.9, ICD10: E55.9 - VITAMIN D 25 HYDROXY 3. Weight gain - ICD9: 783.1, ICD10: R63.5 - THYROID STIMULATING HORMONE - T3 - T4 FREE/FREE THYROXINE Lora Hawkins APRN.Lora Sam APRN.CNP 02/29/2024 10:07 AM Signed Addended by: LORA HAWKINS on: 02/29/2024 10:07 AM Modules accepted: Orders Allergies As of Date: 02/29/2024 (No Known Allergies) Date Reviewed: 02/29/2024 Reviewed by: Marta Magdaleno MA - Fully Assessed Reason for Visit: 6 Month Exam [189] Primary Visit Diagnosis:Iron deficiency anemia, unspecified iron deficiency anemia type [D50.9] Other Visit Diagnoses:Vitamin D deficiency [E55.9] Weight gain [R63.5] Encounter for lipid screening for cardiovascular disease [Z13.220, Z13.6] Screening for diabetes mellitus [Z13.1] Order(s):IRON AND TIBC [SQIRON] Order #: [id number] FUTURE FERRITIN [SQFERR] Order #: [id number] FUTURE COMPLETE BLOOD COUNT AND DIFFERENTIAL [SQCBCDIF] Order #: [id number] FUTURE VITAMIN D 25 HYDROXY [SQVITD] Order #: [id number] FUTURE THYROID STIMULATING HORMONE [SQTSH] Order #: [id number] FUTURE T3 [SQT3] Order #: [id number] FUTURE T4 FREE/FREE THYROXINE [SQFT4] Order #: [id number] FUTURE LIPID PANEL, NONFASTING [SQLIPNF] Order #: [id number] FUTURE HEMOGLOBIN A1C [SSZCU4I] Order #: [id number] FUTURE Prescriptions as of 02/29/2024 - MULTIVITAMIN ORAL Take 1 tablet by mouth once daily as needed. - ferrous sulfate 325 mg (65 mg iron) tablet Take 1 tablet by mouth once daily. - ascorbic acid, vitamin C, (VITAMIN C) 500 mg tablet Take 1 tablet by mouth once daily. Problem List As Of Date: 02/29/2024 (None) Disposition: Return in about 6 months (around 08/29/2024). Follow-up and Disposition History for Encounter Date Provider Department Center 02/29/2024 [id number] (more content not included)... Normal [facility] Ferritin SerPl-mCncon 2023 Ferritin [Mass/Vol] 42.5 ng/mL Normal 14.7-205.1 [facility] Comment on above: Order Comment: Amber jenkins Type: BLOOD SPECIMEN Ordering Facility: [facility] Address: [address] [place] [address] Performed By: #### 2 276-4, 3016-3 #### [facility] CLIA [id number] [address] [place] [address] [place] HbA1c (Bld)on 02-29-2024 Average glucose Estimated from glycated hemoglobin (Bld) [Mass/Vol] 91 mg/dL Normal [facility] Comment on above: Order Comment: Amber jenkins Type: BLOOD SPECIMEN Ordering Facility: [facility] Address: [address] [place] [address] Result Comment: eAG: (Estimated average glucose) is a calculated value from HgbA1c and is retail service representative of the average blood glucose level in the last 2-3 month period. Performed By: #### 5 7021-8 #### [facility] CLIA [id number] [address] [place] [address] [place] HbA1c (Bld) [Mass fraction] 4.8 % Normal 4.3-5.6 [facility] Comment on above: Order Comment: Amber jenkins Type: BLOOD SPECIMEN Ordering Facility: [facility] Address: [address] [place] [address] Result Comment: Amer ican Diabetes Association guidelines indicate that patients with HgbA1c in the range 5.7-6.4% are at increased risk for development of diabetes, and intervention by lifestyle modification may be beneficial. HgbA1c greater or equal to 6.5% is considered diagnostic of diabetes. Performed By: #### 5 7021-8 #### [facility] CLIA [id number] [address] [place] [address] [place] Iron and Iron binding capaci ty panelon 02-29-2024 Iron [Mass/Vol] 80 ug/dL Normal 41-186 [facility] Comment on above: Order Comment: Speci men Type: BLOOD SPECIMEN Ordering Facility: [facility] Address: [address] [place] [address] Performed By: #### 5 0190-8, 3024-7, LIPNF, 3053-6 #### [facility] CLIA [id number] [address] [place] [address] [place] Iron binding capacity [Mass/Vol] 241 ug/dL Normal 232-386 [facility] Comment on above: Order Comment: Speci men Type: BLOOD SPECIMEN Ordering Facility: [facility] Address: [address] [place] [address] Performed By: #### 5 0190-8, 3024-7, LIPNF, 3053-6 #### [facility] CLIA [id number] [address] [place] [address] [place] Iron/TIBC [Molar ratio] 33.2 % Normal 15.0-57.0 [facility] Comment on above: Order Comment: Speci men Type: BLOOD SPECIMEN Ordering Facility: [facility] Address: [address] [place] [address] Performed By: #### 5 0190-8, 3024-7, LIPNF, 3053-6 #### [facility] CLIA [id number] [address] [place] [address] [place] LIPID PANEL, NONFASTINGon Cholesterol [Mass/Vol] 155 mg/dL Normal <200 [facility] Comment on above: Order Comment: Speci men Type: BLOOD SPECIMEN Ordering Facility: [facility] Address: [address] [place] [address] Result Comment: <200 mg/dL, Desirable 200-239 mg/dL, Borderline high >239 mg/dL, High Performed By: #### 5 0190-8, 3024-7, LIPNF, 3053-6 #### [facility] CLIA [id number] [address] [place] [address] [place] HDL CHOLESTEROL, NF 60 mg/dL Normal >39 [facility] Comment on above: Order Comment: Speci men Type: BLOOD SPECIMEN Ordering Facility: [facility] Address: [address] [place] [address] Result Comment: 40-5 9 mg/dL, Acceptable >59 mg/dL, High: Negative risk factor for coronary heart disease <40 mg/dL, Low: Positive risk factor for coronary heart disease Performed By: #### 5 0190-8, 3024-7, LIPNF, 3053-6 #### [facility] CLIA [id number] [address] [place] [address] [place] LDL CHOLESTEROL, NF 85 mg/dL Normal <100 [facility] Comment on above: Order Comment: Hanseli men Type: BLOOD SPECIMEN Ordering Facility: [facility] Address: [address] [place] [address] Result Comment: <100 mg/dL, Optimal 100-129 mg/dL, Near optimal/above optimal 130-159 mg/dL, Borderline high 160-189 mg/dL, High >189 mg/dL, Very high Secondary prevention optimal LDL Cholesterol levels are recommended to be < 70 mg/dL Performed By: #### 5 0190-8, 3024-7, LIPNF, 3053-6 #### [facility] CLIA [id number] [address] [place] [address] [place] LDL/HDL RATIO, NF 1.42 mg/dL Normal <2.54 [facility] Comment on above: Order Comment: Hanseli men Type: BLOOD SPECIMEN Ordering Facility: [facility] Address: [address] [place] [address] Result Comment: Angie cummins: 1. National Cholesterol Education Program ATP III Guideline At-A-Glance Quick Desk Reference: National Heart, Lung, and Blood [place]. National Institutes of Health. 2001: NIH Publication No. 01-3305. 2. An International Atherosclerosis Society position paper: global recommendations for the management of dyslipidemia: executive summary, Atherosclerosis. 2014: 232(2):410-413. Performed By: #### 5 0190-8, 3024-7, LIPNF, 3053-6 #### [facility] CLIA [id number] [address] [place] [address] [place] NON HDL CHOL, NF 95 mg/dL Normal <[address] [facility] Comment on above: Order Comment: Speci men Type: BLOOD SPECIMEN Ordering Facility: [facility] Address: [address] [place] [address] Result Comment: <130 mg/dL, Optimal 130-159 mg/dL, Near optimal/above optimal 160-189 mg/dL, Borderline high 190-219 mg/dL, High >219 mg/dL, Very high Secondary prevention optimal non HDL Cholesterol levels are recommended to be <100 mg/dL Performed By: #### 5 0190-8, 3024-7, LIPNF, 3053-6 #### [facility] CLIA [id number] [address] [place] [address] [place] T CHOL/HDL RATIO NF 2.58 mg/dL Normal <5.10 [facility] Comment on above: Order Comment: Speci men Type: BLOOD SPECIMEN Ordering Facility: [facility] Address: [address] [place] [address] Performed By: #### 5 0190-8, 3024-7, LIPNF, 3053-6 #### [facility] CLIA [id number] [address] [place] [address] [place] TRIGLYCERIDES, NF 48 mg/dL Normal <150 [facility] Comment on above: Order Comment: Speci men Type: BLOOD SPECIMEN Ordering Facility: [facility] Address: [address] [place] [address] Result Comment: <150 mg/dL, Normal 150-199 mg/dL, Borderline high 200-499 mg/dL, High >499 mg/dL, Very high Performed By: #### 5 0190-8, 3024-7, LIPBRENNAN, 305-6 #### [facility] CLIA [id number] [address] [place] [address] [place] VLDL CHOLESTEROL, NF 10 mg/dL Normal <30 [facility] Comment on above: Order Comment: Speci men Type: BLOOD SPECIMEN Ordering Facility: [facility] Address: [address] [place] [address] Performed By: #### 5 0190-8, 3024-7, LIPBRENNAN, 305-6 #### [facility] CLIA [id number] [address] [place] [address] [place] T3 SerPl-mCncon 02-29-2024 T3 [Mass/Vol] 75 ng/dL Low 79-165 [facility] Comment on above: Order Comment: Speci men Type: BLOOD SPECIMEN Ordering Facility: [facility] Address: [address] [place] [address] Performed By: #### 5 7021-8 #### [facility] CLIA [id number] [address] [place] [address] [place] T4 Free SerPl-mCncon 024 Free T4 [Mass/Vol] 1.2 ng/dL Normal 0.9-1.7 [facility] Comment on above: Order Comment: Speci men Type: BLOOD SPECIMEN Ordering Facility: [facility] Address: [address] [place] [address] Performed By: #### 5 0190-8, 3024-7, LIPBRENNAN, 6 #### [facility] CLIA [id number] [address] [place] [address] [place] TSH SerPl-aCncon 02-29-2024 TSH Qn 2.690 m[IU]/L Normal 0.270-4.200 [facility] Comment on above: Order Comment: Speci men Type: BLOOD SPECIMEN Ordering Facility: [facility] Address: [address] [place] [address] Result Comment: If t he patient is , TSH reference range varies by gestational period: First Trimester (weeks 9-12): 0.180-2.990 mIU/L Second Trimester: 0.110-3.980 mIU/L Third Trimester: 0.480-4.710 mIU/L Jae Castro et al. A Practical Approach for the Verifications and Determination of Site- and Trimester-Specific Reference Intervals for Thyroid Function tests in . Thyroid, 2019:29:3:412-420. Jaylon Guajardo, et al. 2017 Guidelines of the [place] Thyroid Association for the Diagnosis and Management of Thyroid Disease during and the . Thyroid, 2017:27:3:315-389. Performed By: #### 2 276-4, 3016-3 #### [facility] CLIA [id number] [address] [place], [place] [address] [address] [place] Equipment Lead Office Visit Reporton 10-22-2023 Equipment Lead Office Visit Report [facility] [place] [address] [address] 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 Required: No Is patient in pain?: No Allergies No Known Allergies Allergy (Verified 10/22/23 10:11) Medications ???Medication ???Instructions ???Recorded ???Confirmed ???Type ferrous sulfate 325 mg (65 mg 325 mg PO TID 10/22/23 10/22/23 History iron) tablet (Feosol) Is last menstrual period known: Yes Last Menstrual Period: 10/04/23 Post menopausal: No Patient : No : No PFSH Medical History (Updated 10/22/23 @ 10:24 by Marta Reyes) Anemia Surgical History (Updated 10/22/23 @ 10:24 by Marta Reyes) S/P wisdom tooth extraction S/P Status post bilateral salpingectomy Family History (Updated 10/22/23 @ 10:26 by Marta Reyes) Grandmother Cancer Paternal- Leukemia Grandmother Cancer Maternal-Leukemia Social History (Updated 10/22/23 @ 10:27 by Marta Reyes) household members: spouse current occupational status: employed current occupation: [employer] Smoking Status: Never smoker alcohol intake: never substance use type: does not use seatbelt use: always do you feel safe at home: Yes 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 Date Name GA/Weeks Outcome Route Bth Weight Infant Gen Labor Lgth Anesthesia Del Locatn Provider FOB Unknown Lise Unknown [facility] Encounter for routine gynecological examination Details: BETO CADENA is a 38 year old who presents for annual exam. She reports she recently was diagnosed with iron deficiency anemia. She has been having her work up through PCP. Now taking OTC iron supplementation. Enjoys running. Last PAP: 10/2019; normal. HPV negative. History of abnormal PAP: None Last mammogram: none History of abnormal mammogram: none Colon cancer screening: None Other preventative health care screenings: Lora Ferris, CERTIFIED MEETING PROFESSIONAL -PCP. Female Reproductive History Last Menstrual Period: 10/04/23 Cycle Length: 21-35 Bleeding Duration: 5 Questions: metorrhagia: No, sexually active: Yes, dyspareunia: No and PCB: No ROS Const Constitutional: Denies chills, fatigue, fever(s), headache(s) or weight loss Eyes Eyes: Denies change in vision ENT ENT: Denies dizziness Resp Resp: Denies cough GI GI: Denies abdominal pain, constipation or nausea : Denies difficulty voiding, dysuria, hematuria, pelvic pain, prolapse symptoms, urinary incontinence, vaginal discharge, vaginal dryness, vaginal odor or vaginal pruritus Skin Skin/Breast: Denies alopecia or rash Neuro Neuro: Denies dizziness Psych Psych: Denies anxiety or depression Endo Endo: Denies cold intolerance, excessive sweating or heat intolerance Exam Const General: cooperative, healthy appearing, comfortable, no acute distress, well groomed and well hydrated Nutritional Appearance: well nourished Orientation: alert, awake and oriented x3 HENMT Head: normal to inspection and normocephalic Ears: hearing grossly normal bilaterally and external ears normal Nose: external nose normal Face and sinus: normal facial exam Eyes General: appearance normal, both eyes and all related structures Neck Neck: normal visual inspection, full ROM and no lymphadenopathy Thyroid: thyroid normal Chest Chest palpation inspection: normal inspection of the chest Breast inspection: normal inspection of the breasts and normal inspection of the axillae Breast palpation: normal palpation of the breasts, normal palpation of the axillae and no axillary lymphadenopathy Resp Effort Inspection: normal respiratory effort, able to speak in complete sentences and symmetric chest movement GI Inspection: normal to inspection Palpation: soft and no hepatosplenomegaly General: bladder normal to palpation External Female Exam: normal external appearance and normal appearance of the urethra Urethra: normal appearance of the urethra Speculum Exam - Vagina: normal appearance of the vagina, normal vaginal discharge, no lesions and nontender Speculum Exam - Cervix: normal appearance of the cervix, no lesions and no masses Bim (more content not included)... [facility] ([facility] ) BETO CADENA ([id number]) 1985 F Date Time Provider Department 09/18/23 5:30 PM SANDRA RODRIGUEZ [facility] During your visit today, we recorded the following information about you: Temperature Pulse Respiration Blood pressure 97.9 degrees 68/minute 18/minute 107/71 Weight 64.4 kg Sandra Rodriguez 09/18/2023 6:09 PM Signed Beto Cadena is a 38 year old FEMALE who presents with Derm Problem (Rash /Patient is an avid running/Started one week ago /Patient thinks poison linh /) and Urinary Problem (Frequency and burning /Started today //Denies chance of STI/) HPI PAST MEDICAL HISTORY Diagnosis Date NEGATIVE MEDICAL HISTORY There is no problem list on file for this patient. Current Outpatient Medications Medication Sig Dispense Refill MULTIVITAMIN ORAL Take 1 tablet by mouth once daily as needed. ferrous sulfate 325 mg (65 mg iron) tablet Take 1 tablet by mouth once daily. 90 tablet 0 hydrocortisone 2.5 % cream Apply 1 application to affected area two times a day for 10 days. 28 g 1 phenazopyridine (PYRIDIUM) 200 mg tablet Take 1 tablet by mouth three times a day as needed for pain for up to 2 days. 6 tablet 0 nitrofurantoin monohydrate and macrocrystal (MACROBID) 100 mg capsule Take 1 capsule by mouth two times a day for 7 days. 14 capsule 0 ascorbic acid, vitamin C, (VITAMIN C) 500 mg tablet Take 1 tablet by mouth once daily. (Patient not taking: Reported on 09/18/2023) 90 tablet 0 No current facility-administered medications for this visit. Social History Tobacco Use Smoking status: Never Passive exposure: Never Smokeless tobacco: Never Vaping Use Vaping Use: Never used Substance Use Topics Alcohol use: No Drug use: No Alcohol Use: No Tobacco Use: Never FAMILY HISTORY Problem Relation Age of Onset Hypertension Mother Hypertension Father No Known Problems Brother No Known Problems Brother Cancer Maternal Grandmother unsure type Cancer Paternal Grandmother lymphoma Coronary Artery Disease Paternal Grandfather age 60s [place] No Known Problems Daughter Review of Systems Genitourinary: Positive for dysuria, frequency and urgency. Skin: Positive for itching and rash (on hands). BP 107/71 Pulse 68 Temp (Src) 97.9 (Temporal) Resp 18 Wt 142 lb (64.4kg) SpO2 100% LMP 05/22/2016 Physical Exam Vitals and nursing note reviewed. Constitutional: Appearance: Normal appearance. HENT: Head: Normocephalic. Cardiovascular: Rate and Rhythm: Normal rate and regular rhythm. Heart sounds: Normal heart sounds. Pulmonary: Effort: Pulmonary effort is normal. Breath sounds: Normal breath sounds. Abdominal: General: Bowel sounds are normal. Tenderness: There is abdominal tenderness. Musculoskeletal: General: Normal range of motion. Skin: General: Skin is warm. Capillary Refill: Capillary refill takes 2 to 3 seconds. Findings: Rash present. Neurological: General: No focal deficit present. Psychiatric: Mood and Affect: Mood normal. ASSESSMENT/PLAN: 1. Acute cystitis with hematuria - ICD9: 595.0, ICD10: N30.01 (primary diagnosis) - PHENAZOPYRIDINE 200 MG TABLET - NITROFURANTOIN MONOHYDRATE AND MACROCRYSTAL 100 MG ORAL CAP 2. Urinary problem - ICD9: V47.4, ICD10: R39.89 - URINALYSIS, DIPSTICK ONLY 3. Rhus dermatitis - ICD9: 692.6, ICD10: L25.5 - HYDROCORTISONE 2.5 % TOPICAL CREAM Sandra Rodriguez Referring Provider: SELF [200] Allergies As of Date: 09/18/2023 (No Known Allergies) Date Reviewed: 09/18/2023 Reviewed by: Sandra Rodriguez DO - Fully Assessed Reason for Visit: Derm Problem [33] Cmt: Rash Patient is an avid running Started one week ago Patient thinks poison linh Urinary Problem [252] Cmt: Frequency and burning Started today Denies chance of STI Primary Visit Diagnosis:Acute cystitis with hematuria [N30.01] Other Visit Diagnoses:Urinary problem [R39.89] Rhus dermatitis [L25.5] Order(s):URINALYSIS, DIPSTICK ONLY [SQUA] Order #: [id number] FUTURE URINALYSIS, DIPSTICK ONLY [SQUA] Order #: [id number]. #:[id number] hydrocortisone 2.5 % creamApply 1 application to affected area two times a day for 10 days.Disp: 28 gRfl: 1 phenazopyridine (PYRIDIUM) 200 mg tabletTake 1 tablet by mouth three times a day as needed for pain for up to 2 days.Disp: 6 tabletRfl: 0 nitrofurantoin monohydrate and macrocrystal (MACROBID) 100 mg capsuleTake 1 capsule by mouth two times a day for 7 days.Disp: 14 capsuleRfl: 0 Prescriptions as of 09/18/2023 - MULTIVITAMIN ORAL Take 1 tablet by mouth once daily as needed. - hydrocortisone 2.5 % cream Apply 1 application to affected area two times a day for 10 days. - phenazopyridine (PYRIDIUM) 200 mg tablet Take 1 tablet by mouth three times a day as needed for pain for up to 2 days. - nitrofurantoin monohydrate and macrocryst (more content not included)... Normal [facility] URINALYSIS, DIPSTICK ONLYOrd ered By: Keshawn Caldwell on 09-18-2023 Bilirubin Ql (U) Negative Negative [facility] Clarity (Unsp spec) Clear Clear [facility] Color (U) Straw Yellow [facility] Glucose Test strip (U) [Mass/Vol] Negative Negative [facility] Hemoglobin Ql (U) 2+ Abnormal Negative [facility] Interpretation and review of laboratory results Abnormal [facility] Ketones Ql (U) Negative Negative [facility] Leukocyte esterase Test strip Ql (U) 3+ Abnormal Negative [facility] Nitrite Ql (U) Negative Negative [facility] pH (U) 6.0 [pH] 5.0 - 8.0 [facility] Protein (U) [Mass/Vol] Negative Negative [facility] Specific gravity (U) [Rel density] 1.010 1.005 - 1.030 [facility] Urobilinogen Ql (U) Negative Negative [facility] URINALYSIS, DIPSTICK ONLYon 09-18-2023 Bilirubin Ql (U) Negative Normal Negative [facility] Comment on above: Order Comment: Speci men Type: URINE SPECIMEN Ordering Facility: [facility] Address: [address] [place] [address] Performed By: #### U A #### [facility] CLIA [id number] [facility] Clarity (Unsp spec) Clear Normal Clear [facility] Comment on above: Order Comment: Speci men Type: URINE SPECIMEN Ordering Facility: [facility] Address: [address] [place] [address] Performed By: #### U A #### [facility] CLIA [id number] [address] Color (U) Straw Normal Yellow [facility] Comment on above: Order Comment: Speci men Type: URINE SPECIMEN Ordering Facility: [facility] Address: [address] [place] [address] Performed By: #### U A #### [facility] CLIA [id number] [address] [place], [place] [id number] [place] [address] Glucose Test strip (U) [Mass/Vol] Negative Normal Negative [facility] Comment on above: Order Comment: Speci men Type: URINE SPECIMEN Ordering Facility: [facility] Address: [address] [place] [address] Performed By: #### U A #### [facility] CLIA [id number] [address] [place] [address] Hemoglobin Ql (U) 2+ Abnormal Negative [facility] Comment on above: Order Comment: Speci men Type: URINE SPECIMEN Ordering Facility: [facility] Address: [address] [place] [address] Performed By: #### U A #### [facility] CLIA [id number] [address] Ketones Ql (U) Negative Normal Negative [facility] Comment on above: Order Comment: Speci men Type: URINE SPECIMEN Ordering Facility: [facility] Address: [address] [place] [address] Performed By: #### U A #### [facility] CLIA [id number] [address] Leukocyte esterase Test strip Ql (U) 3+ Abnormal Negative [facility] Comment on above: Order Comment: Speci men Type: URINE SPECIMEN Ordering Facility: [facility] Address: [address] [place] [address] Performed By: #### U A #### [facility] CLIA [id number] [address] [place] [address] [place] Nitrite Ql (U) Negative Normal Negative [facility] Comment on above: Order Comment: Speci men Type: URINE SPECIMEN Ordering Facility: [facility] Address: [address] [place] [address] Performed By: #### U A #### [facility] CLIA [id number] [facility] [place] [id number] [place] pH (U) 6.0 [pH] Normal 5.0-8.0 [facility] Comment on above: Order Comment: Speci men Type: URINE SPECIMEN Ordering Facility: [facility] Address: [address] [place] [address] Performed By: #### U A #### [facility] CLIA [id number] [address] [place] [address] [place] Protein (U) [Mass/Vol] Negative Normal Negative [facility] Comment on above: Order Comment: Speci men Type: URINE SPECIMEN Ordering Facility: [facility] Address: [address] [place] [address] Performed By: #### U A #### [facility] CLIA [id number] [address] [place] [address] [place] Specific gravity (U) [Rel density] 1.010 Normal 1.005-1.030 [facility] Comment on above: Order Comment: Speci men Type: URINE SPECIMEN Ordering Facility: [facility] Address: [address] [place] [address] Performed By: #### U A #### [facility] CLIA [id number] [address] [place] [address] Urobilinogen Ql (U) Negative Normal Negative [facility] Comment on above: Order Comment: Speci men Type: URINE SPECIMEN Ordering Facility: [facility] Address: [address] [place] [address] Performed By: #### U A #### [facility] CLIA [id number] [address] [place] [address] [place] F[place] 08-28-2023 Ferritin [Mass/Vol] 6.1 ng/mL Low 14.7 - 2 05.1 ng/mL [facility] FOLATE, SERUMon 08-28-2023 Folate [Mass/Vol] 19.9 ng/mL 4.7 - PINF ng/mL [facility] Ferritin [Mass/Vol]on 2023 Interpretation and review of laboratory results Abnormal [facility] Iron and Iron binding capaci ty panelon 08-28-2023 Interpretation and review of laboratory results Abnormal [facility] Iron [Mass/Vol] 27 ug/dL Low 41 - 186 ug/dL [facility] Iron binding capacity [Mass/Vol] 391 ug/dL High 232 - 386 ug/dL [facility] Iron/TIBC [Molar ratio] 6.9 % Low 15.0 - 57.0 % [facility] No Panel Informationon 08-27 Interpretation and review of laboratory results Normal [facility] VITAMIN B12on 08-28-2023 Cobalamin (Vitamin B12) [Mass/Vol] 816 pg/mL 232 - 1245 pg/mL [facility] CBC W Auto Differential pane l (Bld)on 08-27-2023 Basophils (Bld) [#/Vol] 0.04 10*3/uL [facility] Basophils/100 WBC (Bld) 0.6 % [facility] Differential cell count method Nom (Bld) Auto [facility] Eosinophils (Bld) [#/Vol] 0.06 10*3/uL [facility] Eosinophils/100 WBC (Bld) 0.9 % [facility] Erythrocyte distribution width (RBC) [Ratio] 15.6 % High 11.5 - 15.0 % [facility] Hematocrit (Bld) [Volume fraction] 36.0 % 36.0 - 46.0 % [facility] Hemoglobin (Bld) [Mass/Vol] 10.9 g/dL Low 11.5 - 15.5 g/dL [facility] Immature granulocytes (Bld) [#/Vol] [facility] Immature granulocytes/100 WBC (Bld) 0.3 % [facility] Interpretation and review of laboratory results Abnormal [facility] Lymphocytes (Bld) [#/Vol] 2.25 10*3/uL [facility] Lymphocytes/100 WBC (Bld) 33.4 % [facility] MCH (RBC) [Entitic mass] 25.7 pg Low 26.0 - 34.0 pg [facility] MCHC (RBC) [Mass/Vol] 30.3 g/dL Low 30.5 - 36.0 g/dL [facility] MCV (RBC) [Entitic vol] 84.9 fL 80.0 - 100.0 fL [facility] Monocytes (Bld) [#/Vol] 0.60 10*3/uL NINF [facility] Monocytes/100 WBC (Bld) 8.9 % [facility] Neutrophils (Bld) [#/Vol] 3.76 10*3/uL [facility] Neutrophils/100 WBC (Bld) 55.9 % [facility] Nucleated RBC (Bld) [#/Vol] NINF [facility] Nucleated RBC/100 WBC (Bld) [Ratio] 0.0 % /100 WBC [facility] Platelet mean volume (Bld) [Entitic vol] 9.6 fL 9.0 - 12.7 fL [facility] Platelets (Bld) [#/Vol] 356 10*3/uL [facility] RBC (Bld) [#/Vol] 4.24 10*6/uL 3.90 - 5.2 0 m/uL [facility] WBC (Bld) [#/Vol] 6.73 10*3/uL [facility] Comprehensive metabolic 2000 panelon 08-27-2023 Albumin [Mass/Vol] 4.3 g/dL 3.9 - 4.9 g/dL [facility] ALP [Catalytic activity/Vol] 50 U/L 34 - 123 U/L [facility] ALT [Catalytic activity/Vol] 14 U/L 7 - 38 U/L [facility] Anion gap [Moles/Vol] 11 mmol/L 8 - 15 mmol/L [facility] AST [Catalytic activity/Vol] 19 U/L 13 - 35 U/L [facility] Bilirubin [Mass/Vol] 0.2 mg/dL 0.2 - 1.3 mg/dL [facility] Calcium [Mass/Vol] 9.4 mg/dL 8.5 - 10. 2 mg/dL [facility] Chloride [Moles/Vol] 102 mmol/L 98 - 107 mmol/L [facility] CO2 [Moles/Vol] 24 mmol/L 22 - 30 mmol/L [facility] Creatinine [Mass/Vol] 0.63 mg/dL 0.58 - 0.96 mg/dL [facility] GFR/1.73 sq M.predicted among non-blacks MDRD (S/P/Bld) [Vol rate/Area] 117 mL/min/{1.73_m2} - PINF [facility] Comment on above: Estimated Glomerular Filtration Rate (eGFR) is calculated using the 2020 CKD-EPI creatinine equation. This equation utilizes serum creatinine, sex, and age as parameters. The creatinine assay has traceable calibration to isotope dilution-mass spectrometry. Refer to KDIGO guidelines for clinical interpretation. In patients with unstable renal function, e.g. those with acute kidney injury, the eGFR may not accurately reflect actual GFR. Glucose [Mass/Vol] 90 mg/dL 74 - 99 mg/dL [facility] Comment on above: The [place] Diabete s Association (ADA) provides guidance for cutoff values for fasting glucose and random glucose. The ADA defines fasting as no caloric intake for at least 8 hours. Fasting plasma glucose results between 100 to 125 mg/dL indicate increased risk for diabetes (prediabetes). Fasting plasma glucose results greater than or equal to 126 mg/dL meet the criteria for diagnosis of diabetes. In the absence of unequivocal hyperglycemia, results should be confirmed by repeat testing. In a patient with classic symptoms of hyperglycemia or hyperglycemic crisis, random plasma glucose results greater than or equal to 200 mg/dL meet the criteria for diagnosis of diabetes. Reference: Standards of Medical Care in Diabetes 2016, [place] Diabetes Association. Diabetes Care. 2016.39(Suppl 1). Potassium [Moles/Vol] 4.6 mmol/L 3.7 - 5.1 mmol/L [facility] Protein [Mass/Vol] 6.9 g/dL 6.3 - 8.0 g/dL [facility] Sodium [Moles/Vol] 137 mmol/L 136 - 144 mmol/L [facility] Urea nitrogen [Mass/Vol] 24 mg/dL High 7 - 21 mg/dL [facility] LIPID PANEL, NONFASTINGon Cholesterol [Mass/Vol] 200 mg/dL High NINF - 200 mg/dL [facility] Comment on above: <200 mg/dL, Desirabl e 200-239 mg/dL, Borderline high >239 mg/dL, High HDL Cholesterol, Nonfasting 73 mg/dL 39 - PINF mg/dL [facility] Comment on above: 40-59 mg/dL, Accepta ble >59 mg/dL, High: Negative risk factor for coronary heart disease <40 mg/dL, Low: Positive risk factor for coronary heart disease LDL Cholesterol, Nonfasting 116 mg/dL High NINF - 100 mg/dL [facility] Comment on above: <100 mg/dL, Optimal 100-129 mg/dL, Near optimal/above optimal 130-159 mg/dL, Borderline high 160-189 mg/dL, High >189 mg/dL, Very high Secondary prevention optimal LDL Cholesterol levels are recommended to be < 70 mg/dL LDL/HDL Ratio, Nonfasting 1.59 mg/dL NINF - 2.54 mg/dL [facility] Comment on above: Reference: 1. National Cholesterol Education Program ATP III Guideline At-A-Glance Quick Desk Reference: National Heart, Lung, and Blood [place]. National Institutes of Health. 2001: NIH Publication No. 01-3305. 2. An International Atherosclerosis Society position paper: global recommendations for the management of dyslipidemia: executive summary, Atherosclerosis. 2014: 232(2):410-413. Non HDL Cholesterol, Nonfasting 127 mg/dL NINF - 130 mg/dL [facility] Comment on above: <130 mg/dL, Optimal 130-159 mg/dL, Near optimal/above optimal 160-189 mg/dL, Borderline high 190-219 mg/dL, High >219 mg/dL, Very high Secondary prevention optimal non HDL Cholesterol levels are recommended to be <100 mg/dL Total Chol/HDL Ratio, Nonfasting 2.74 mg/dL NINF - 5.10 mg/dL [facility] Triglycerides, Nonfasting 54 mg/dL NINF - 150 mg/dL [facility] Comment on above: <150 mg/dL, Normal 150-199 mg/dL, Borderline high 200-499 mg/dL, High >499 mg/dL, Very high VLDL Cholesterol, Nonfasting 11 mg/dL NINF - 30 mg/dL [facility] No Panel Informationon 08-26 Interpretation and review of laboratory results Abnormal [facility] CURon 07-02-2018 CUR . MICRO - Microbiology PROCEDURE: Urine Culture [*1] SOURCE: Urine, Clean Catch BODY SITE: COLLECTED DATE/TIME: 07/01/2018 08:55 EDT RECEIVED DATE/TIME: 07/01/2018 15:10 EDT START DATE/TIME: 07/01/2018 15:10 EDT FREE TEXT SOURCE: FINAL REPORTS Final Report [] Verified Date/Time/Personnel: 07/02/2018 15:22 EDT 50,000 organisms per mL Mixed without predominant isolate(s). Sensitivity Testing not indicated. Probably contamination. Repeat culture suggested. Performing Locations *1: This test was performed at: [facility], [address] [place] [address], [facility] , [facility] ([place]) Comment on above: Performed By: #### C UR #### [address] [id number] Vital Signs Date Time Vital Sign Value Performing Clinician John thompson 10-26-2024 10:00-0400 Body height 162.[address] Elias Lee MD Work Phone: [facility] 10-26-2024 10:00-0400 Body mass index (BMI) [Ratio] 24.2 kg/m2 Dr. Elias Lee MD Work Phone: [facility] 10-26-2024 10:00-0400 Body weight 63.[address] Elias Lee MD Work Phone: [facility] 10-26-2024 10:00-0400 Diastolic blood pressure 76 mm[Hg] Dr. Elias Lee MD Work Phone: [facility] 10-26-2024 10:00-0400 Systolic blood pressure 118 mm[Hg] Dr. Elias Lee MD Work Phone: [facility] 09-01-2024 09:05-0400 Body mass index (BMI) [Ratio] 23.84 kg/m2 Lora Hawkins APRN.CNP Work Phone: [facility] 09-01-2024 09:05-0400 Body weight 63 kg Lora Hawkins APRN.CNP Work Phone: [facility] 09-01-2024 09:05-0400 Diastolic blood pressure 66 mm[Hg] Lora Hawkins APRN.CNP Work Phone: [facility] 09-01-2024 09:05-0400 Heart rate 60 /min Lora Hawkins APRN.STORE TEAM LEADER Work Phone: [facility] 09-01-2024 09:05-0400 Systolic blood pressure 103 mm[Hg] Lora Hawkins APRN.STORE TEAM LEADER Work Phone: [facility] 02-29-2024 09:32-0500 Body mass index (BMI) [Ratio] 23.86 kg/m2 Lora Hawkins APRN.STORE TEAM LEADER Work Phone: [facility] 02-29-2024 09:32-0500 Body weight 63.05 kg Lora Hawkins APRN.STORE TEAM LEADER Work Phone: [facility] 02-29-2024 09:32-0500 Diastolic blood pressure 70 mm[Hg] Lora Hawkins HEALTHCARE REPRESENTATIVE.STORE TEAM LEADER Work Phone: [facility] 02-29-2024 09:32-0500 Heart rate 54 /min Lora Hawkins APRN.STORE TEAM LEADER Work Phone: [facility] 02-29-2024 09:32-0500 Respiratory rate 14 /min Lora Hawkins APRN.STORE TEAM LEADER Work Phone: [facility] 02-29-2024 09:32-0500 Systolic blood pressure 107 mm[Hg] Lora Hawkins APRN.STORE TEAM LEADER Work Phone: [facility] 09-18-2023 17:44-0400 Body mass index (BMI) [Ratio] 24.37 kg/m2 Sandra Rodriguez DO Work Phone: [facility] 09-18-2023 17:44-0400 Body temperature 97.9 [degF] Sandra Michael DO Work Phone: [facility] 09-18-2023 17:44-0400 Body weight 64.41 kg Sandra Estevezn DO Work Phone: [facility] 09-18-2023 17:44-0400 Diastolic blood pressure 71 mm[Hg] Sandra Rodriguez DO Work Phone: [facility] 09-18-2023 17:44-0400 Heart rate 68 /min Sandra Rodriguez DO Work Phone: [facility] 09-18-2023 17:44-0400 Respiratory rate 18 /min Sandra Rodriguez DO Work Phone: [facility] 09-18-2023 17:44-0400 SaO2% (BldA) [Mass fraction] 100 % Sandra Rodriguez DO Work Phone: [facility] 09-18-2023 17:44-0400 Systolic blood pressure 107 mm[Hg] Sandra Rodriguez DO Work Phone: [facility] 08-27-2023 09:21-0400 Body height 162.6 cm Lora Hawkins APRN.STORE TEAM LEADER Work Phone: [facility] 08-27-2023 09:21-0400 Body mass index (BMI) [Ratio] 23.86 kg/m2 Lora Hawkins APRN.STORE TEAM LEADER Work Phone: [facility] 08-27-2023 09:21-0400 Body weight 63.05 kg Lora Hawkins APRN.STORE TEAM LEADER Work Phone: [facility] 08-27-2023 09:21-0400 Diastolic blood pressure 72 mm[Hg] Lora Hawkins APRN.STORE TEAM LEADER Work Phone: [facility] 08-27-2023 09:21-0400 Heart rate 66 /min Lora Hawkins APRN.STORE TEAM LEADER Work Phone: [facility] 08-27-2023 09:21-0400 Respiratory rate 14 /min Lora Hawkins APRN.STORE TEAM LEADER Work Phone: [facility] 08-27-2023 09:21-0400 Systolic blood pressure 108 mm[Hg] Lora Hawkins APRN.STORE TEAM LEADER Work Phone: [facility] 08-26-2021 15:01-0400 Body temperature 98.1 [degF] Isabela Beltran APRN.STORE TEAM LEADER Work Phone: [facility] 08-26-2021 15:01-0400 Body weight 61.51 kg Isabela Praisler-Wood HEALTHCARE REPRESENTATIVE.STORE TEAM LEADER Work Phone: [facility] 08-26-2021 15:01-0400 Diastolic blood pressure 72 mm[Hg] Isabela Praisler-Wood HEALTHCARE REPRESENTATIVE.STORE TEAM LEADER Work Phone: [facility] 08-26-2021 15:01-0400 Heart rate 77 /min Isabela Praisler-Wood HEALTHCARE REPRESENTATIVE.STORE TEAM LEADER Work Phone: [facility] 08-26-2021 15:01-0400 Respiratory rate 20 /min Isabela Praisler-Wood HEALTHCARE REPRESENTATIVE.STORE TEAM LEADER Work Phone: [facility] 08-26-2021 15:01-0400 SaO2% (BldA) [Mass fraction] 98 % Isabela Praisler-Wood HEALTHCARE REPRESENTATIVE.STORE TEAM LEADER Work Phone: [facility] 08-26-2021 15:01-0400 Systolic blood pressure 104 mm[Hg] Isabela Praisler-Wood HEALTHCARE REPRESENTATIVE.STORE TEAM LEADER Work Phone: [facility] Encounters Encounter Date Encounter Type Care Provider Facility Start: 10-26-2024 End: 10-26-2024 ambulatory Elias Lee Facility:[facility] Start: 10-26-2024 End: 10-26-2024 Patient encounter procedure Yareli ELIZABETH -[facility] Work Phone: Start: 09-01-2024 End: 09-01-2024 ambulatory LORA HAWKINS Facility:[facility] Start: 09-01-2024 End: 09-01-2024 Patient encounter procedure Lora Hawkins HEALTHCARE REPRESENTATIVE.STORE TEAM LEADER Work Phone: [facility] [place] Comment on above: Iron deficiency anem ia, unspecified iron deficiency anemia type (Primary Dx); Screening for depression; Encounter for screening examination for other mental health and behavioral disorders; Low hemoglobin Start: 08-29-2024 End: 08-29-2024 ambulatory LORA HAWKINS Facility:[facility] Start: 07-04-2024 End: 07-25-2024 Patient encounter status Lora Hawkins APRN.STORE TEAM LEADER Work Phone: [facility] Start: 07-04-2024 End: 07-25-2024 Telephone encounter Lora Hawkins APRN.STORE TEAM LEADER Work Phone: [address] [place] [address] Comment on above: Orders Start: 03-01-2024 End: 03-01-2024 Telephone encounter Lora Hawkins APRN.STORE TEAM LEADER Work Phone: [facility] [place] Comment on above: Results Start: 02-29-2024 End: 02-29-2024 Patient encounter procedure Lora Hawkins APRN.STORE TEAM LEADER Work Phone: [facility] [place] Comment on above: Iron deficiency anem ia, unspecified iron deficiency anemia type (Primary Dx); Vitamin D deficiency; Weight gain; Encounter for lipid screening for cardiovascular disease; Screening for diabetes mellitus Start: 02-29-2024 End: 02-29-2024 ambulatory LORA HAWKINS Facility:[facility] Start: 10-22-2023 End: 10-22-2023 ambulatory [facility] Facility:[facility] Start: 09-18-2023 End: 09-18-2023 Patient encounter procedure Sandra Christina Rodriguez DO Work Phone: [facility] Comment on above: Acute cystitis with hematuria (Primary Dx); Urinary problem; Rhus dermatitis Start: 09-18-2023 End: 09-18-2023 ambulatory LORA HAWKINS Facility:[id number] Start: 08-31-2023 Telephone encounter Lora ferris APRN.STORE TEAM LEADER Work Phone: [facility] [place] Comment on above: Results Start: 08-28-2023 Telephone encounter Lora ferris APRN.STORE TEAM LEADER Work Phone: [facility] [place] Comment on above: Results Start: 08-27-2023 End: 08-27-2023 Patient encounter procedure Lora Hawkins APRN.STORE TEAM LEADER Work Phone: [facility] [place] Comment on above: Wellness examination (Primary Dx); Encounter for lipid screening for cardiovascular disease; Screening for diabetes mellitus Start: 08-27-2023 End: 08-27-2023 Patient encounter status Lora Hawkins APRN.STORE TEAM LEADER Work Phone: [facility] Work Phone: Start: 01-27-2023 End: 01-27-2023 Patient encounter procedure Nolan Glover MD Work Phone: [facility] [place] Comment on above: Encounter for immuni zation (Primary Dx) Start: 08-26-2021 End: 08-26-2021 Patient encounter procedure Isabela Beltran HEALTHCARE REPRESENTATIVE.STORE TEAM LEADER Work Phone: [facility] Comment on above: Cough (Primary Dx) Start: 07-01-2018 End: 07-06-2018 Patient encounter procedure BRAD STOVALL Facility:B Procedures Date Procedure Procedure Detail Performing Clinician Start: 09-01-2024 Adult depression scr eening assessment Lora Hawkins APRN.STORE TEAM LEADER Work Phone: Start: 09-18-2023 Urnls dip stick/tabl et rgnt auto w/o microscopy Sandra Christina Rodriguez DO Work Phone: Start: 08-27-2023 Adult depression scr eening assessment Lora Hawkins APRN.STORE TEAM LEADER Work Phone: Start: 01-27-2023 INFLUENZA VACCINE, A GE 6 MO - 64 YR, QUADRIVALENT (AFLURIA, FLULAVAL, FLUZONE) Nolan Glover MD Work Phone: Plan of Treatment Date Care Activity Detail Author Start: 01-21-2027 Screening for malign ant neoplasm of cervix [facility] Start: 08-15-2026 Urine microalbumin profile [facility] Start: 09-01-2025 Anxiety Screening Anxiety Screening [facility] Start: 09-01-2025 Depression Screening Depression Scre ening [facility] Start: 03-03-2025 End: 03-03-2025 Patient encounter procedure 03/03/2025 12:40 PM EST Office Visit [facility] [place] [address] [place], [place] [id number] Lora Hawkins APRN.[facility] [address] [place] [address] physical [facility] Comment on above: physical Start: 01-21-2025 Screening for malign ant neoplasm of cervix Cervical Cancer Screening [facility] Start: 11-21-2024 Influenza vaccination Influenz a Vaccine (Season Ended) [facility] Start: 09-19-2024 Influenza vaccination Influenza Vacc ine (#1) [facility] Comment on above: Postponed from 11/21 (Declined at this time) Start: 09-01-2024 End: 09-01-2024 Patient encounter procedure 09/01/2024 9:40 AM EDT Office Visit [facility] [address] [place] [address] Lora Hawkins APRN.STORE TEAM LEADER [address] [place] [address] 6 mo follow up with labs [facility] Comment on above: 6 mo follow up with labs Start: 08-26-2024 Anxiety Screening Anxiety Screening [facility] Start: 08-26-2024 Covid-19 Vaccine ( season) Covid-19 Vaccine ( season) [facility] Comment on above: Postponed from 11/21 (Declined at this time) Start: 08-26-2024 Depression Screening Depression Scre [facility] Start: 08-26-2024 Hepatitis C screening Hepatitis C Sc [facility] Comment on above: Postponed from 05/09 (Declined at this time) Start: 08-26-2024 HIV screening HIV Screening [facility] Comment on above: Postponed from 05/09 (Declined at this time) Start: 08-19-2024 End: 11-18-2024 25-hydroxyvitamin D3 [Mass/volume] in Serum or Plasma VITAMIN D 25 HYDROXY Lab Routine Vitamin D deficiency Expected: 08/19/2024, Expires: 11/18/2024 [facility] Comment on above: Expected: 08/19/2024 , Expires: 11/18/2024 Start: 08-19-2024 End: 11-18-2024 CBC W Auto Differential panel - Blood COMPLETE BLOOD COUNT AND DIFFERENTIAL Lab Routine Iron deficiency anemia, unspecified iron deficiency anemia type Expected: 08/19/2024, Expires: 11/18/2024 [facility] Comment on above: Expected: 08/19/2024 , Expires: 11/18/2024 Start: 08-19-2024 End: 11-18-2024 Hemoglobin A1c in Blood HEMOGLOBIN A1C Lab Routine Encounter for screening for diabetes mellitus Expected: 08/19/2024, Expires: 11/18/[address] [facility] Work Phone: Comment on above: Expected: 08/19/2024 , Expires: 11/18/2024 Start: 08-19-2024 End: 11-18-2024 Iron and Iron binding capacity panel - Serum or Plasma IRON AND TIBC Lab Routine Iron deficiency anemia, unspecified iron deficiency anemia type Expected: 08/19/2024, Expires: 11/18/2024 [facility] Comment on above: Expected: 08/19/2024 , Expires: 11/18/2024 Start: 08-19-2024 End: 11-18-2024 LIPID PANEL, NONFASTING LIPID PANEL, NONFASTING Lab Routine Encounter for lipid screening for cardiovascular disease Expected: 08/19/2024, Expires: 11/18/2024 [facility] Comment on above: Expected: 08/19/2024 , Expires: 11/18/2024 Start: 02-29-2024 End: 05-30-2024 25-hydroxyvitamin D3 [Mass/volume] in Serum or Plasma [facility] Comment on above: Expected: 02/29/2024 , Expires: 05/30/2024 Start: 02-29-2024 End: 05-30-2024 CBC W Auto Differential panel - Blood [facility] Comment on above: Expected: 02/29/2024 , Expires: 05/30/2024 Start: 02-29-2024 End: 05-30-2024 Ferritin [Mass/volume] in Serum or Plasma [facility] Comment on above: Expected: 02/29/2024 , Expires: 05/30/2024 Start: 02-29-2024 End: 05-30-2024 Hemoglobin A1c in Blood [facility] Comment on above: Expected: 02/29/2024 , Expires: 05/30/2024 Start: 02-29-2024 End: 05-30-2024 Iron and Iron binding capacity panel - Serum or Plasma [facility] Work Phone: Comment on above: Expected: 02/29/2024 , Expires: 05/30/2024 Start: 02-29-2024 End: 05-30-2024 LIPID PANEL, NONFASTING [facility] Comment on above: Expected: 02/29/2024 , Expires: 05/30/2024 Start: 02-29-2024 End: 05-30-2024 Thyrotropin [Units/volume] in Serum or Plasma [facility] Comment on above: Expected: 02/29/2024 , Expires: 05/30/2024 Start: 02-29-2024 End: 05-30-2024 Thyroxine (T4) free [Mass/volume] in Serum or Plasma [facility] Comment on above: Expected: 02/29/2024 , Expires: 05/30/2024 Start: 02-29-2024 End: 05-30-2024 Triiodothyronine (T3) [Mass/volume] in Serum or Plasma [facility] Comment on above: Expected: 02/29/2024 , Expires: 05/30/2024 Start: 11-22-2023 Covid-19 Vaccine () Covid-19 Vaccine () [facility] Start: 08-27-2023 End: 11-26-2023 Hemoglobin A1c in Blood [facility] Work Phone: Comment on above: Expected: 08/27/2023 , Expires: 11/26/2023 Start: 11-21-2022 Covid-19 Vaccine ( season) Covid-19 Vaccine () [facility] Start: 03-23-2022 Depression Assessment Depression Ass essment [facility] Start: 07-19-2021 COVID-19 VACCINE (3 - Booster for Pfizer series) COVID-19 VACCINE (3 - Booster for Pfizer series) [facility] Start: 2015 HPV TESTING HPV TESTING [facility] Start: 2006 PAP TESTING PAP TESTING [facility] Start: 2003 HEPATITIS C SCREENING HEPATITIS C SC REENING [facility] Start: 2003 Hepatitis C screening Hepatitis C Sc reemervin [facility] Start: 2003 HIV SCREENING HIV SCREENING [facility] Start: 2003 HIV screening HIV Screening [facility] Start: 1997 Adult depression scr eening assessment DEPRESSION SCREENING [facility] System Start: 1985 Hepatitis B Vaccine (1 of 3 - 3-dose series) Hepatitis B Vaccine (1 of 3 - 3-dose series) [facility] Liquid based cervica l cytology screening [facility] Immunizations Immunization Date Immunization Notes Care Provider Fa cility 01-27-2023 influenza, injectabl e, quadrivalent, contains preservative Nolan Glover MD Work Phone: [facility] 01-27-2023 influenza virus vaccine, unspecified formulation Lora Hawkins HEALTHCARE REPRESENTATIVE.STORE TEAM LEADER Work Phone: [facility] 01-31-2022 influenza, injectabl e, quadrivalent, contains preservative Nolan Glover MD Work Phone: [facility] 01-02-2019 influenza, seasonal, injectable Isabela Beltran HEALTHCARE REPRESENTATIVE.STORE TEAM LEADER Work Phone: [facility] 01-28-2018 influenza, injectabl e, quadrivalent, preservative free Dr. Elias Lee MD Work Phone: [facility] 03-19-2012 influenza virus vaccine, unspecified formulation Isabela Beltran HEALTHCARE REPRESENTATIVE.STORE TEAM LEADER Work Phone: [facility] Payers Date Payer Category Payer Self-pay 2020 [facility] PPO [id number] 2020 Unknown [employer]IC[employer]UCAS [employer] PPO [id number] 2020-Present [phone] [address] [place] [address] PPO [id number] 2020 Unknown GRICELDA LUCAS [employer] PPO [id number] 2020-Present [phone] [address] [place] [address] PPO [id number] 2020 Unknown [id number] 2018 Unknown [id number] 2016 Unknown [id number] 1985 Unknown [id number] Unknown [id number] Unknown [id number] Social History Date Type Detail Facility Start: 03-02-2018 End: 10-22-2023 Tobacco smoking status NHIS Never smoked tobacco [facility] Start: 08-26-2021 End: 09-18-2023 Alcohol intake Current non-drinker of alcohol (finding) [facility] Start: 1985 Sex Assigned At Not on file [facility] Start: 08-16-2021 End: 08-26-2021 Exposure to SARS-CoV-2 (event) Not sure [facility] Work Phone: Start: 03-02-2018 End: 09-18-2023 Tobacco use and exposure Smokeless tobacco non-user [facility] Start: 08-26-2021 End: 01-27-2023 History of Social function [facility] Start: 08-26-2021 End: 01-27-2023 Tobacco use panel [facility] National Score (1-10 0), lower number is lower risk 67 [facility] Has the [place], or [employer] threatened to shut off services in your home in past 12Mo No [facility] Do you belong to any clubs or organizations such as orthodoxy groups, unions, fraternal or athletic groups, or school groups? Yes [facility] Are you now , , , , never or living with a partner? [facility] How often to you hav e a drink containing alcohol? Never [facility] Do you feel stress - tense, restless, nervous, or anxious, or unable to sleep at night because your mind is troubled all the time - these days [OSQ] Not at all [facility] (I/We) worried whedonald er (my/our) food would run out before (I/we) got money to buy more. Never true [facility] Start: 1985 Sex Assigned At Female [facility] NEGATED: Highlighted rowStart: ROMANF History of tobacco use Passive smoker [facility] Clinical Notes 08-26-2021 to 09-01-2024 Lora Hawkins APRN.STORE TEAM LEADER - 09/01/2024 9:02 AM EDTTelephone Encounter - Marta Magdaleno MA - 07/05/2024 1:33 PM EDTTelephone Encounter - Marta Magdaleno MA - 07/05/2024 1:33 PM EDT Note Date & Type Note Facility 09-01-2024 Note HNO ID: [id number] Author: LORA HAWKINS APRN.STORE TEAM LEADER Service: ? Author Type: Nurse Practitioner Type: Progress Notes Filed: 09/01/2024 09:38 Note Text: Chief Complaint Patient presents with: 6 Month Exam HPI Beto Cadena is a 39 year old female who presents here today for Above Complaints.. Diet: oatmeal and 2 eggs for breakfast, quinoa, chicken and veggies for lunch, potatoes ground beef and potatoes for dinner. Snacks include apple and cottage cheese. Drinks predominately water. 1 cup of coffee with milk in the mornings. Exercise: 1-3 hours daily, running, walking and weight lifting. 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 Energy is good, denies any complaints. Sleep: 5-6 hours. Goes to sleep about 10/11pm and wakes up at 4am. Past medical history, appointments, medications, allergies reviewed. Previous Medical History PAST MEDICAL HISTORY Diagnosis Date NEGATIVE MEDICAL HISTORY Previous Surgical History PAST SURGICAL HISTORY Procedure Laterality Date PAST SURGICAL HISTORY OF 01/2018 x2 Family History FAMILY HISTORY Problem Relation Age of Onset Hypertension Mother Hypertension Father No Known Problems Brother No Known Problems Brother Cancer Maternal Grandmother unsure type Cancer Paternal Grandmother lymphoma Coronary Artery Disease Paternal Grandfather age 60s [place] No Known Problems Daughter Patient Allergies ALLERGIES No Known Allergies Current Medications Current Outpatient Medications on File Prior to Visit Medication Sig MULTIVITAMIN ORAL Take 1 tablet by mouth once daily as needed. ferrous sulfate 325 mg (65 mg iron) tablet Take 1 tablet by mouth once daily. ascorbic acid, vitamin C, (VITAMIN C) 500 mg tablet Take 1 tablet by mouth once daily. (Patient not taking: Reported on 09/18/2023) No current facility-administered medications on file prior to visit. Social History Social History Tobacco Use Smoking status: Never Passive exposure: Never Smokeless tobacco: Never Vaping Use Vaping status: Never Used Substance Use Topics Alcohol use: No Drug use: No Review of Symptoms REVIEW OF SYSTEMS See HPI EXAM: BP 103/66 Pulse 60 Wt 63 kg (138 lb 14.2 oz) LMP 05/22/2016 BMI 23.84 kg/m? Skin: Skin color, texture, turgor normal, no suspicious rashes or lesions. Head: Normocephalic, no masses, lesions, tenderness or abnormalities. Neck: Supple, no adenopathy; thyroid symmetric, normal size, no bruits. Lungs: Lungs clear to auscultation. No wheezing, rhonchi, rales.. Heart: RRR without murmur, gallop, or rubs. No ectopy. Abdomen: Normal abdominal exam, Abdomen soft, non-tender. Bowel sounds normal. No masses, organomegaly. Health Maintenance List Hepatitis C Screening Never done HIV Screening Never done Covid-19 Vaccine( season) due on 11/22/2023 Depression Screening due on 08/26/2024 Anxiety Screening due on 08/26/2024 Cervical Cancer Screening due on 01/21/2025 Influenza Vaccine(Season Ended) due on 11/21/2024 DTaP,Tdap,Td Vaccine(2 - Td or Tdap) due on 08/15/2026 Hepatitis B Vaccine Discontinued Data reviewed Latest Ref Rng 08/29/2024 WBC 3.70 - 11.00 k/uL 7.28 RBC 3.90 - 5.20 m/uL 4.35 Hemoglobin 11.5 - 15.5 g/dL 14.0 Hematocrit 36.0 - 46.0 % 43.4 MCV 80.0 - 100.0 fL 99.8 MCH 26.0 - 34.0 pg 32.2 MCHC 30.5 - 36.0 g/dL 32.3 RDW-CV 11.5 - 15.0 % 11.7 Platelet Count 150 - 400 k/uL 277 MPV 9.0 - 12.7 fL 10.1 Neut% % 59.7 Abs Neut (ANC) 1.45 - 7.50 k/uL 4.35 Lymph% % 32.0 Abs Lymph 1.00 - 4.00 k/uL 2.33 Hemphill% % 6.3 Abs Hemphill <0.87 k/uL 0.46 Eosin% % 1.0 Abs Eosin <0.46 k/uL 0.07 Baso% % 0.7 Abs Baso <0.11 k/uL 0.05 Immature Gran % % 0.3 IMMATURE GRANS (ABS) <0.10 k/uL <0.03 NRBC /100 WBC 0.0 Absolute nRBC <0.01 k/uL <0.01 DTYPE Auto Total Cholesterol, Nonfasting <200 mg/dL 192 Triglycerides, Nonfasting <150 mg/dL 56 HDL Cholesterol, Nonfasting >39 mg/dL 76 LDL Cholesterol Calculated, Nonfasting <100 mg/dL 105 (H) Non HDL Cholesterol, Nonfasting <130 mg/dL 116 VLDL Cholesterol, Nonfasting <30 mg/dL 9 Total Chol/HDL Ratio, Nonfasting <5.10 mg/dL 2.53 LDL/HDL Ratio, Nonfasting <2.54 mg/dL 1.38 Iron 41 - 186 ug/dL 83 TIBC 232 - 386 ug/dL 267 Transferrin Saturation 15.0 - 57.0 % 31.1 Hemoglobin A1C 4.3 - 5.6 % 5.3 Estimated Average Glucose mg/dL 105 Vitamin D 25 Hydroxy 31.0 - 80.0 ng/mL 73.7 ASSESSMENT/PLAN: 1. Iron deficiency anemia, unspecified iron deficiency anemia type - ICD9: 280.9, ICD10: D50.9 (primary diagnosis) -Stable 2. Screening for depression - ICD9: V79.0, ICD10: Z13.31 - DEPRESSION SCREENING 3. Encounter for screening examination for other mental health and behavioral disorders - ICD9: V79.8, ICD10: Z13.39 - ANXIETY SCREENING 4. Low hemoglobin - ICD9: 285.9, ICD10: D64.9 -Improved. Lora Hawkins APRN.[facility] 09-01-2024 History of Presen t illness Narrative Chief Complaint Patient presents with: 6 Month Exam HPI Beto Cadena is a 39 year old female who presents here today for Above Complaints.. Diet: oatmeal and 2 eggs for breakfast, quinoa, chicken and veggies for lunch, potatoes ground beef and potatoes for dinner. Snacks include apple and cottage cheese. Drinks predominately water. 1 cup of coffee with milk in the mornings. Exercise: 1-3 hours daily, running, walking and weight lifting. 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 Energy is good, denies any complaints. Sleep: 5-6 hours. Goes to sleep about 10/11pm and wakes up at 4am. Past medical history, appointments, medications, allergies reviewed. Previous Medical History PAST MEDICAL HISTORY Diagnosis Date NEGATIVE MEDICAL HISTORY Previous Surgical History PAST SURGICAL HISTORY Procedure Laterality Date PAST SURGICAL HISTORY OF 01/2018 x2 Family History FAMILY HISTORY Problem Relation Age of Onset Hypertension Mother Hypertension Father No Known Problems Brother No Known Problems Brother Cancer Maternal Grandmother unsure type Cancer Paternal Grandmother lymphoma Coronary Artery Disease Paternal Grandfather age 60s [place] No Known Problems Daughter Patient Allergies ALLERGIES No Known Allergies Current Medications Current Outpatient Medications on File Prior to Visit Medication Sig MULTIVITAMIN ORAL Take 1 tablet by mouth once daily as needed. ferrous sulfate 325 mg (65 mg iron) tablet Take 1 tablet by mouth once daily. ascorbic acid, vitamin C, (VITAMIN C) 500 mg tablet Take 1 tablet by mouth once daily. (Patient not taking: Reported on 09/18/2023) No current facility-administered medications on file prior to visit. Social History Social History Tobacco Use Smoking status: Never Passive exposure: Never Smokeless tobacco: Never Vaping Use Vaping status: Never Used Substance Use Topics Alcohol use: No Drug use: No Review of Symptoms REVIEW OF SYSTEMS See HPI EXAM: BP 103/66 Pulse 60 Wt 63 kg (138 lb 14.2 oz) LMP 05/22/2016 BMI 23.84 kg/m Skin: Skin color, texture, turgor normal, no suspicious rashes or lesions. Head: Normocephalic, no masses, lesions, tenderness or abnormalities. Neck: Supple, no adenopathy; thyroid symmetric, normal size, no bruits. Lungs: Lungs clear to auscultation. No wheezing, rhonchi, rales.. Heart: RRR without murmur, gallop, or rubs. No ectopy. Abdomen: Normal abdominal exam, Abdomen soft, non-tender. Bowel sounds normal. No masses, organomegaly. Health Maintenance List Hepatitis C Screening Never done HIV Screening Never done Covid-19 Vaccine( season) due on 11/22/2023 Depression Screening due on 08/26/2024 Anxiety Screening due on 08/26/2024 Cervical Cancer Screening due on 01/21/2025 Influenza Vaccine(Season Ended) due on 11/21/2024 DTaP,Tdap,Td Vaccine(2 - Td or Tdap) due on 08/15/2026 Hepatitis B Vaccine Discontinued Data reviewed Latest Ref Rng 08/29/2024 WBC 3.70 - 11.00 k/uL 7.28 RBC 3.90 - 5.20 m/uL 4.35 Hemoglobin 11.5 - 15.5 g/dL 14.0 Hematocrit 36.0 - 46.0 % 43.4 MCV 80.0 - 100.0 fL 99.8 MCH 26.0 - 34.0 pg 32.2 MCHC 30.5 - 36.0 g/dL 32.3 RDW-CV 11.5 - 15.0 % 11.7 Platelet Count 150 - 400 k/uL 277 MPV 9.0 - 12.7 fL 10.1 Neut% % 59.7 Abs Neut (ANC) 1.45 - 7.50 k/uL 4.35 Lymph% % 32.0 Abs Lymph 1.00 - 4.00 k/uL 2.33 Hemphill% % 6.3 Abs Hemphill <0.87 k/uL 0.46 Eosin% % 1.0 Abs Eosin <0.46 k/uL 0.07 Baso% % 0.7 Abs Baso <0.11 k/uL 0.05 Immature Gran % % 0.3 IMMATURE GRANS (ABS) <0.10 k/uL <0.03 NRBC /100 WBC 0.0 Absolute nRBC <0.01 k/uL <0.01 DTYPE Auto Total Cholesterol, Nonfasting <200 mg/dL 192 Triglycerides, Nonfasting <150 mg/dL 56 HDL Cholesterol, Nonfasting >39 mg/dL 76 LDL Cholesterol Calculated, Nonfasting <100 mg/dL 105 (H) Non HDL Cholesterol, Nonfasting <130 mg/dL 116 VLDL Cholesterol, Nonfasting <30 mg/dL 9 Total Chol/HDL Ratio, Nonfasting <5.10 mg/dL 2.53 LDL/HDL Ratio, Nonfasting <2.54 mg/dL 1.38 Iron 41 - 186 ug/dL 83 TIBC 232 - 386 ug/dL 267 Transferrin Saturation 15.0 - 57.0 % 31.1 Hemoglobin A1C 4.3 - 5.6 % 5.3 Estimated Average Glucose mg/dL 105 Vitamin D 25 Hydroxy 31.0 - 80.0 ng/mL 73.7 ASSESSMENT/PLAN: 1. Iron deficiency anemia, unspecified iron deficiency anemia type - ICD9: 280.9, ICD10: D50.9 (primary diagnosis) -Stable 2. Screening for depression - ICD9: V79.0, ICD10: Z13.31 - DEPRESSION SCREENING 3. Encounter for screening examination for other mental health and behavioral disorders - ICD9: V79.8, ICD10: Z13.39 - ANXIETY SCREENING 4. Low hemoglobin - ICD9: 285.9, ICD10: D64.9 -Improved. Lora Hawkins APRN.STORE TEAM LEADER documented in this encounter [facility] 07-05-2024 Telephone encounter Note Left message for patient to return call to office Marta Magdaleno MA [facility] 07-05-2024 Miscellaneous Notes Left message for patient to return call to office Marta Magdaleno MA Let patient know lab orders placed. Also her appt in August should have been for a complete PE. Last one was done 08/2023. Can this be corrected. Patient is calling to arrange her repeat labs in 3-6 mo from 02/2024, Please place lab orders. documented in this encounter [facility] 07-04-2024 Telephone encounter Note Let patient know lab orders placed. Also her appt in August should have been for a complete PE. Last one was done 08/2023. Can this be corrected. [facility] 07-04-2024 Telephone encounter Note Patient is calling to arrange her repeat labs in 3-6 mo from 02/2024, Please place lab orders. [facility] 03-01-2024 Telephone encounter Note Patient calls and notified of results and providers instructions. Patient verbalizes understanding. Aurea Fuentes RN [facility] 03-01-2024 Miscellaneous Notes Patient calls and notified of results and providers instructions. Patient verbalizes understanding. Aurea Fuentes RN Please let patient know her t3 is just slightly low. Her other labs are normal. This is not anything that needs intervention on at the time. We can repeat labs in 3-6 months if needed. documented in this encounter [facility] 03-01-2024 Telephone encounter Note Please let patient know her t3 is just slightly low. Her other labs are normal. This is not anything that needs intervention on at the time. We can repeat labs in 3-6 months if needed. [facility] 02-29-2024 Note Addended by: LORA HAWKINS on: 02/29/2024 10:07 AM Modules accepted: Orders [facility] 02-29-2024 Miscellaneous Notes Addended by: LORA HAWKINS on: 02/29/2024 10:07 AM Modules accepted: Orders documented in this encounter [facility] 02-29-2024 Note HNO ID: [id number] Author: LORA HAWKINS APRN.CNP Service: ? Author Type: Nurse Practitioner Type: Progress Notes Filed: 02/29/2024 09:57 Note Text: Chief Complaint Patient presents with: 6 Month Exam HPI Beto Cadena is a 38 year old female who presents here today for Above Complaints.. Patient presents for routine follow up. Patient reports she has noticed a significant improvement in her fatigue since starting iron and vitamin c. Past medical history, appointments, medications, allergies reviewed. Previous Medical History PAST MEDICAL HISTORY Diagnosis Date NEGATIVE MEDICAL HISTORY Previous Surgical History PAST SURGICAL HISTORY Procedure Laterality Date PAST SURGICAL HISTORY OF 01/2018 x2 Family History FAMILY HISTORY Problem Relation Age of Onset Hypertension Mother Hypertension Father No Known Problems Brother No Known Problems Brother Cancer Maternal Grandmother unsure type Cancer Paternal Grandmother lymphoma Coronary Artery Disease Paternal Grandfather age 60s [place] No Known Problems Daughter Patient Allergies ALLERGIES No Known Allergies Current Medications Current Outpatient Medications on File Prior to Visit Medication Sig MULTIVITAMIN ORAL Take 1 tablet by mouth once daily as needed. ferrous sulfate 325 mg (65 mg iron) tablet Take 1 tablet by mouth once daily. ascorbic acid, vitamin C, (VITAMIN C) 500 mg tablet Take 1 tablet by mouth once daily. (Patient not taking: Reported on 09/18/2023) No current facility-administered medications on file prior to visit. Social History Social History Tobacco Use Smoking status: Never Passive exposure: Never Smokeless tobacco: Never Vaping Use Vaping status: Never Used Substance Use Topics Alcohol use: No Drug use: No Review of Symptoms REVIEW OF SYSTEMS SEE HPI EXAM: BP 107/70 Pulse (!) 54 Resp 14 Wt 63 kg (139 lb) LMP 05/22/2016 BMI 23.86 kg/m? General Appearance: Well appearing, alert, in no acute distress, well-hydrated, well nourished. Lungs: Lungs clear to auscultation. No wheezing, rhonchi, rales.. Heart: RRR without murmur, gallop, or rubs. No ectopy. Peripheral Pulses: Normal. Health Maintenance List Covid-19 Vaccine( season) due on 11/22/2023 Hepatitis C Screening due on 08/26/2024 HIV Screening due on 08/26/2024 Influenza Vaccine(1) due on 09/19/2024 Depression Screening due on 08/26/2024 Anxiety Screening due on 08/26/2024 Cervical Cancer Screening due on 01/21/2025 DTaP,Tdap,Td Vaccine(2 - Td or Tdap) due on 08/15/2026 HPV Vaccine Aged Out Hepatitis B Vaccine Discontinued ASSESSMENT/PLAN: 1. Iron deficiency anemia, unspecified iron deficiency anemia type - ICD9: 280.9, ICD10: D50.9 (primary diagnosis) - IRON AND TIBC - FERRITIN - COMPLETE BLOOD COUNT AND DIFFERENTIAL 2. Vitamin D deficiency - ICD9: 268.9, ICD10: E55.9 - VITAMIN D 25 HYDROXY 3. Weight gain - ICD9: 783.1, ICD10: R63.5 - THYROID STIMULATING HORMONE - T3 - T4 FREE/FREE THYROXINE Lora Hawkins APRN.[facility] 02-29-2024 History of Presen t illness Narrative Chief Complaint Patient presents with: 6 Month Exam HPI Beto Cadena is a 38 year old female who presents here today for Above Complaints.. Patient presents for routine follow up. Patient reports she has noticed a significant improvement in her fatigue since starting iron and vitamin c. Past medical history, appointments, medications, allergies reviewed. Previous Medical History PAST MEDICAL HISTORY Diagnosis Date NEGATIVE MEDICAL HISTORY Previous Surgical History PAST SURGICAL HISTORY Procedure Laterality Date PAST SURGICAL HISTORY OF 01/2018 x2 Family History FAMILY HISTORY Problem Relation Age of Onset Hypertension Mother Hypertension Father No Known Problems Brother No Known Problems Brother Cancer Maternal Grandmother unsure type Cancer Paternal Grandmother lymphoma Coronary Artery Disease Paternal Grandfather age 60s [place] No Known Problems Daughter Patient Allergies ALLERGIES No Known Allergies Current Medications Current Outpatient Medications on File Prior to Visit Medication Sig MULTIVITAMIN ORAL Take 1 tablet by mouth once daily as needed. ferrous sulfate 325 mg (65 mg iron) tablet Take 1 tablet by mouth once daily. ascorbic acid, vitamin C, (VITAMIN C) 500 mg tablet Take 1 tablet by mouth once daily. (Patient not taking: Reported on 09/18/2023) No current facility-administered medications on file prior to visit. Social History Social History Tobacco Use Smoking status: Never Passive exposure: Never Smokeless tobacco: Never Vaping Use Vaping status: Never Used Substance Use Topics Alcohol use: No Drug use: No Review of Symptoms REVIEW OF SYSTEMS SEE HPI EXAM: BP 107/70 Pulse (!) 54 Resp 14 Wt 63 kg (139 lb) LMP 05/22/2016 BMI 23.86 kg/m General Appearance: Well appearing, alert, in no acute distress, well-hydrated, well nourished. Lungs: Lungs clear to auscultation. No wheezing, rhonchi, rales.. Heart: RRR without murmur, gallop, or rubs. No ectopy. Peripheral Pulses: Normal. Health Maintenance List Covid-19 Vaccine( season) due on 11/22/2023 Hepatitis C Screening due on 08/26/2024 HIV Screening due on 08/26/2024 Influenza Vaccine(1) due on 09/19/2024 Depression Screening due on 08/26/2024 Anxiety Screening due on 08/26/2024 Cervical Cancer Screening due on 01/21/2025 DTaP,Tdap,Td Vaccine(2 - Td or Tdap) due on 08/15/2026 HPV Vaccine Aged Out Hepatitis B Vaccine Discontinued ASSESSMENT/PLAN: 1. Iron deficiency anemia, unspecified iron deficiency anemia type - ICD9: 280.9, ICD10: D50.9 (primary diagnosis) - IRON AND TIBC - FERRITIN - COMPLETE BLOOD COUNT AND DIFFERENTIAL 2. Vitamin D deficiency - ICD9: 268.9, ICD10: E55.9 - VITAMIN D 25 HYDROXY 3. Weight gain - ICD9: 783.1, ICD10: R63.5 - THYROID STIMULATING HORMONE - T3 - T4 FREE/FREE THYROXINE Lora Hawkins APRN.STORE TEAM LEADER documented in this encounter [facility] 09-18-2023 Note HNO ID: [id number] Author: SANDRA RODRIGUEZ, DO Service: ? Author Type: Physician Type: Progress Notes Filed: 09/18/2023 18:09 Note Text: Beto Cadena is a 38 year old FEMALE who presents with Derm Problem (Rash /Patient is an avid running/Started one week ago /Patient thinks poison linh /) and Urinary Problem (Frequency and burning /Started today //Denies chance of STI/) HPI PAST MEDICAL HISTORY Diagnosis Date NEGATIVE MEDICAL HISTORY There is no problem list on file for this patient. Current Outpatient Medications Medication Sig Dispense Refill MULTIVITAMIN ORAL Take 1 tablet by mouth once daily as needed. ferrous sulfate 325 mg (65 mg iron) tablet Take 1 tablet by mouth once daily. 90 tablet 0 hydrocortisone 2.5 % cream Apply 1 application to affected area two times a day for 10 days. 28 g 1 phenazopyridine (PYRIDIUM) 200 mg tablet Take 1 tablet by mouth three times a day as needed for pain for up to 2 days. 6 tablet 0 nitrofurantoin monohydrate and macrocrystal (MACROBID) 100 mg capsule Take 1 capsule by mouth two times a day for 7 days. 14 capsule 0 ascorbic acid, vitamin C, (VITAMIN C) 500 mg tablet Take 1 tablet by mouth once daily. (Patient not taking: Reported on 09/18/2023) 90 tablet 0 No current facility-administered medications for this visit. Social History Tobacco Use Smoking status: Never Passive exposure: Never Smokeless tobacco: Never Vaping Use Vaping Use: Never used Substance Use Topics Alcohol use: No Drug use: No Alcohol Use: No Tobacco Use: Never FAMILY HISTORY Problem Relation Age of Onset Hypertension Mother Hypertension Father No Known Problems Brother No Known Problems Brother Cancer Maternal Grandmother unsure type Cancer Paternal Grandmother lymphoma Coronary Artery Disease Paternal Grandfather age 60s [place] No Known Problems Daughter Review of Systems Genitourinary: Positive for dysuria, frequency and urgency. Skin: Positive for itching and rash (on hands). BP 107/71 Pulse 68 Temp (Src) 97.9 (Temporal) Resp 18 Wt 142 lb (64.4kg) SpO2 100% LMP 05/22/2016 Physical Exam Vitals and nursing note reviewed. Constitutional: Appearance: Normal appearance. HENT: Head: Normocephalic. Cardiovascular: Rate and Rhythm: Normal rate and regular rhythm. Heart sounds: Normal heart sounds. Pulmonary: Effort: Pulmonary effort is normal. Breath sounds: Normal breath sounds. Abdominal: General: Bowel sounds are normal. Tenderness: There is abdominal tenderness. Musculoskeletal: General: Normal range of motion. Skin: General: Skin is warm. Capillary Refill: Capillary refill takes 2 to 3 seconds. Findings: Rash present. Neurological: General: No focal deficit present. Psychiatric: Mood and Affect: Mood normal. ASSESSMENT/PLAN: 1. Acute cystitis with hematuria - ICD9: 595.0, ICD10: N30.01 (primary diagnosis) - PHENAZOPYRIDINE 200 MG TABLET - NITROFURANTOIN MONOHYDRATE AND MACROCRYSTAL 100 MG ORAL CAP 2. Urinary problem - ICD9: V47.4, ICD10: R39.89 - URINALYSIS, DIPSTICK ONLY 3. Rhus dermatitis - ICD9: 692.6, ICD10: L25.5 - HYDROCORTISONE 2.5 % TOPICAL CREAM Sandra Kenny Rodriguez [facility] 09-18-2023 History of Presen t illness Narrative Beto Cadena is a 38 year old FEMALE who presents with Derm Problem (Rash /Patient is an avid running/Started one week ago /Patient thinks poison linh /) and Urinary Problem (Frequency and burning /Started today //Denies chance of STI/) HPI PAST MEDICAL HISTORY Diagnosis Date NEGATIVE MEDICAL HISTORY There is no problem list on file for this patient. Current Outpatient Medications Medication Sig Dispense Refill MULTIVITAMIN ORAL Take 1 tablet by mouth once daily as needed. ferrous sulfate 325 mg (65 mg iron) tablet Take 1 tablet by mouth once daily. 90 tablet 0 hydrocortisone 2.5 % cream Apply 1 application to affected area two times a day for 10 days. 28 g 1 phenazopyridine (PYRIDIUM) 200 mg tablet Take 1 tablet by mouth three times a day as needed for pain for up to 2 days. 6 tablet 0 nitrofurantoin monohydrate and macrocrystal (MACROBID) 100 mg capsule Take 1 capsule by mouth two times a day for 7 days. 14 capsule 0 ascorbic acid, vitamin C, (VITAMIN C) 500 mg tablet Take 1 tablet by mouth once daily. (Patient not taking: Reported on 09/18/2023) 90 tablet 0 No current facility-administered medications for this visit. Social History Tobacco Use Smoking status: Never Passive exposure: Never Smokeless tobacco: Never Vaping Use Vaping Use: Never used Substance Use Topics Alcohol use: No Drug use: No Alcohol Use: No Tobacco Use: Never FAMILY HISTORY Problem Relation Age of Onset Hypertension Mother Hypertension Father No Known Problems Brother No Known Problems Brother Cancer Maternal Grandmother unsure type Cancer Paternal Grandmother lymphoma Coronary Artery Disease Paternal Grandfather age 60s [place] No Known Problems Daughter Review of Systems Genitourinary: Positive for dysuria, frequency and urgency. Skin: Positive for itching and rash (on hands). BP 107/71 Pulse 68 Temp (Src) 97.9 (Temporal) Resp 18 Wt 142 lb (64.4kg) SpO2 100% LMP 05/22/2016 Physical Exam Vitals and nursing note reviewed. Constitutional: Appearance: Normal appearance. HENT: Head: Normocephalic. Cardiovascular: Rate and Rhythm: Normal rate and regular rhythm. Heart sounds: Normal heart sounds. Pulmonary: Effort: Pulmonary effort is normal. Breath sounds: Normal breath sounds. Abdominal: General: Bowel sounds are normal. Tenderness: There is abdominal tenderness. Musculoskeletal: General: Normal range of motion. Skin: General: Skin is warm. Capillary Refill: Capillary refill takes 2 to 3 seconds. Findings: Rash present. Neurological: General: No focal deficit present. Psychiatric: Mood and Affect: Mood normal. ASSESSMENT/PLAN: 1. Acute cystitis with hematuria - ICD9: 595.0, ICD10: N30.01 (primary diagnosis) - PHENAZOPYRIDINE 200 MG TABLET - NITROFURANTOIN MONOHYDRATE & MACROCRYSTAL 100 MG ORAL CAP 2. Urinary problem - ICD9: V47.4, ICD10: R39.89 - URINALYSIS, DIPSTICK ONLY 3. Rhus dermatitis - ICD9: 692.6, ICD10: L25.5 - HYDROCORTISONE 2.5 % TOPICAL CREAM Sandra Rodriguez documented in this encounter [facility] 08-31-2023 Telephone encounter Note Pt notified and verbalized understanding Marta Magdaleno MA [facility] 08-31-2023 Miscellaneous Notes Pt notified and verbalized understanding Marta Magdaleno MA Please let patient know ferritin and iron are low. I have sent in prescriptions for iron and vitamin c. documented in this encounter [facility] 08-31-2023 Telephone encounter Note Please let patient know ferritin and iron are low. I have sent in prescriptions for iron and vitamin c. [facility] 08-28-2023 Telephone encounter Note Pt notified and would not like to start a statin at this time. Marta Magdaleno MA [facility] 08-28-2023 Miscellaneous Notes Pt notified and would not like to start a statin at this time. Marta Magdaleno MA Likely with her lifestyle high cholesterol is genetic. We could start her on a low dose statin to better control her cholesterol however at her levels we typically just monitor due to side effects of medications. Her heavier periods and fatigue point to likely anemia however we need to know what the cause is. I will call her after her labs result to let her know what supplementation she needs to start. Patient notified and voiced her understanding. Patient is very concerned about the cholesterol levels and would like to know what more she can do to keep those numbers lower. States that she is very active and has a pretty good diet but if needed can do even more. Patient was anemic during her first and treated at that time. She was fine with her 2nd . States that she has been denied to give blood before due to low hemoglobin but has also passed and been able to donate. Here recently she has noticed she is more tired. Her periods have been heavier and she feels like she looks pale during her period. Patient plans to come in for additional lab work. Please let patient know her total cholesterol and bad cholesterol are borderline high. Also her hemoglobin is slightly low. Has patient ever been evaluated for anemia? I would like her to get some follow up blood work completed to assess for anemia. documented in this encounter [facility] 08-28-2023 Telephone encounter Note Likely with her lifestyle high cholesterol is genetic. We could start her on a low dose statin to better control her cholesterol however at her levels we typically just monitor due to side effects of medications. Her heavier periods and fatigue point to likely anemia however we need to know what the cause is. I will call her after her labs result to let her know what supplementation she needs to start. [facility] 08-28-2023 Telephone encounter Note Patient notified and voiced her understanding. Patient is very concerned about the cholesterol levels and would like to know what more she can do to keep those numbers lower. States that she is very active and has a pretty good diet but if needed can do even more. Patient was anemic during her first and treated at that time. She was fine with her 2nd . States that she has been denied to give blood before due to low hemoglobin but has also passed and been able to donate. Here recently she has noticed she is more tired. Her periods have been heavier and she feels like she looks pale during her period. Patient plans to come in for additional lab work. [facility] 08-28-2023 Telephone encounter Note Please let patient know her total cholesterol and bad cholesterol are borderline high. Also her hemoglobin is slightly low. Has patient ever been evaluated for anemia? I would like her to get some follow up blood work completed to assess for anemia. [facility] 08-27-2023 History of Presen t illness Narrative Chief Complaint Patient presents with: [facility] HPI Beto Cadena is a 38 year old female who presents here today for Above Complaints.. Patient presents to [facility]. 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 Past medical history, appointments, medications, allergies reviewed. Previous Medical History PAST MEDICAL HISTORY Diagnosis Date NEGATIVE MEDICAL HISTORY Previous Surgical History PAST SURGICAL HISTORY Procedure Laterality Date PAST SURGICAL HISTORY OF 01/2018 x1 Family History FAMILY HISTORY Problem Relation Age of Onset None Mother Hypertension Father No Known Problems Brother No Known Problems Brother Cancer Maternal Grandmother unsure type Cancer Paternal Grandmother lymphoma Coronary Artery Disease Paternal Grandfather age 60s [place] No Known Problems Daughter Patient Allergies ALLERGIES No Known Allergies Current Medications Current Outpatient Medications on File Prior to Visit Medication Sig vit/iron fum/folic ac ( VITAMIN ORAL) Take 1 tablet by mouth once daily. (Patient not taking: Reported on 08/26/2021 ) No current facility-administered medications on file prior to visit. Social History Social History Tobacco Use Smoking status: Never Smokeless tobacco: Never Substance Use Topics Alcohol use: No Drug use: No Review of Symptoms REVIEW OF SYSTEMS GENERAL: No weight loss, malaise or fevers HEENT: No changes in hearing or vision, no nose bleeds or other nasal problems NECK: Negative for lumps, goiter, pain and significant neck swelling RESPIRATORY: Negative for cough, hemoptysis, wheezing, COPD, dyspnea or shortness of breath CARDIOVASCULAR: Negative for chest pain, leg swelling, hypertension, CHF or palpitations GI: No nausea, vomiting, or diarrhea : No history of dysuria, frequency or incontinence CHIEF ENGINEER'S HELPER: Negative for abnormal vaginal bleeding, abnormal vaginal discharge MUSCULOSKELETAL: Negative for joint pain or swelling, back pain or muscle pain SKIN: Negative for lesions, rash, and itching PSYCH: Negative for sleep disturbance, mood disorder and recent psychosocial stressors HEMATOLOGY/LYMPHOLOGY: Negative for prolonged bleeding, bruising easily or swollen nodes ENDOCRINE: Negative for cold or heat intolerance, polyuria, polydipsia and goiter NEURO: No history of headaches, syncope, paralysis, seizures or tremors EXAM: BP 108/72 Pulse 66 Resp 14 Ht 162.6 cm (5' 4) Wt 63 kg (139 lb) LMP 05/22/2016 BMI 23.86 kg/m General Appearance: Well appearing, alert, in no acute distress, well-hydrated, well nourished.. Skin: Skin color, texture, turgor normal, no suspicious rashes or lesions. Lungs: Lungs clear to auscultation. No wheezing, rhonchi, rales.. Heart: RRR without murmur, gallop, or rubs. No ectopy. Abdomen: Normal abdominal exam, Abdomen soft, non-tender. Bowel sounds normal. No masses, organomegaly. Musculoskeletal: No joint swelling, deformity, or tenderness. Peripheral Pulses: Normal. Neurologic: Gait normal. Reflexes normal and symmetric. Sensation grossly intact.. Health Maintenance List Hepatitis C Screening Never done HIV Screening Never done Hepatitis B Vaccine(1 of 3 - 19+ 3-dose series) Never done Pap Testing Never done HPV Testing Never done Covid-19 Vaccine(3 - season) due on 11/21/2022 Behavioral Health Screening Never done DTaP,Tdap,Td Vaccine(2 - Td or Tdap) due on 08/15/2026 Influenza Vaccine Completed HPV Vaccine Aged Out ASSESSMENT/PLAN: 1. Wellness examination - ICD9: V70.0, ICD10: Z00.00 (primary diagnosis) - Counseled on healthy diet and regular exercise - Follow up for annual exam in one year - COMPLETE BLOOD COUNT AND DIFFERENTIAL - COMPREHENSIVE METABOLIC PANEL 2. Encounter for lipid screening for cardiovascular disease - ICD9: V77.91, V81.2, ICD10: Z13.220, Z13.6 - LIPID PANEL, NONFASTING 3. Screening for diabetes mellitus - ICD9: V77.1, ICD10: Z13.1 - HEMOGLOBIN A1C Lora Hawkins APRN.STORE TEAM LEADER documented in this encounter [facility] 08-26-2021 History of Presen t illness Narrative Subjective Beto Cadena is a 36 year old female who presents for evaluation of a cough. She reports a low-grade fever last week for which she began taking amoxicillin for. Since then she has overall felt well but continues to have a cough. She reports her children and are sick with similar symptoms and her children are being tested for COVID-19. Denies shortness of breath, sinus congestion, sore throat, ear pain, or chest pain. The history is provided by the patient. No modern languages professor was used. Cough This is a new problem. The current episode started more than 2 days ago. The problem has not changed since onset.The cough is non-productive. There has been no fever. Pertinent negatives include no chest pain, no chills, no ear pain, no headaches, no rhinorrhea, no sore throat, no shortness of breath and no wheezing. Review of Systems Constitutional: Negative for chills and fever. HENT: Negative for congestion, ear pain, rhinorrhea, sinus pain and sore throat. Respiratory: Positive for cough. Negative for shortness of breath and wheezing. Cardiovascular: Negative for chest pain. Neurological: Negative for headaches. BP 104/72 Pulse 77 Temp 36.7 C (98.1 F) Resp 20 Wt 61.5 kg (135 lb 9.6 oz) LMP 05/22/2016 SpO2 98% BMI 24.21 kg/m PAST MEDICAL HISTORY Diagnosis Date NEGATIVE MEDICAL HISTORY PAST SURGICAL HISTORY Procedure Laterality Date PAST SURGICAL HISTORY OF 01/2018 x1 ALLERGIES Patient has no known allergies. MEDICATIONS vit/iron fum/folic ac ( VITAMIN ORAL) Take 1 tablet by mouth once daily. FAMILY HISTORY Problem Relation Age of Onset None Mother Hypertension Father No Known Problems Brother No Known Problems Brother Cancer Maternal Grandmother unsure type Cancer Paternal Grandmother lymphoma Coronary Artery Disease Paternal Grandfather age 60s [place] No Known Problems Daughter Social History Tobacco Use Smoking status: Never Smoker Smokeless tobacco: Never Used Substance Use Topics Alcohol use: No Drug use: No Objective Physical Exam Vitals and nursing note reviewed. Constitutional: Appearance: Normal appearance. HENT: Right Ear: Tympanic membrane, ear canal and external ear normal. Left Ear: Tympanic membrane, ear canal and external ear normal. Nose: Nose normal. Mouth/Throat: Mouth: Mucous membranes are moist. Pharynx: No posterior oropharyngeal erythema. Cardiovascular: Rate and Rhythm: Normal rate and regular rhythm. Pulmonary: Effort: Pulmonary effort is normal. Breath sounds: Normal breath sounds. Neurological: Mental Status: She is alert. ASSESSMENT/PLAN: 1. Cough - ICD9: 786.2, ICD10: R05.9 - OTC cough and cold medication as needed. - Likely viral etiology - Follow up if cough persists or worsens. HUMA Elise student TEACHING PROVIDER (Physician/PA/HEALTHCARE REPRESENTATIVE) NOTE OF PERSONAL INVOLVEMENT IN CARE: I have personally seen and examined the patient and performed the medical decision-making components. I have reviewed the Advanced Practice Registered Nurse (HEALTHCARE REPRESENTATIVE) Student's documentation and verified the findings in the note as written. Any additions or changes are noted in bold/italics. Signature: Isabela Beltran Date: 08/26/2021 Time: 3:50 PM documented in this encounter [facility] 08-26-2021 Instructions Jen Worthy - 08/26/2021 3:43 PM EDT ASSESSMENT/PLAN: 1. Cough - ICD9: 786.2, ICD10: R05.9 - OTC cough and cold medication as needed. - Likely viral etiology - Follow up if cough persists or worsens. HUMA Elise student documented in this encounter [facility] Evaluation note Diagnosis Cough- Primary [facility] Diagnosis Encounter for immunization- Primary Need for other specified prophylactic vaccination against single bacterial disease [facility] Diagnosis Wellness examination- Primary Encounter for lipid screening for cardiovascular disease Screening for lipoid disorders Screening for diabetes mellitus [facility] Diagnosis Low hemoglobin- Primary Anemia, unspecified [facility] Diagnosis Acute cystitis with hematuria- Primary Acute cystitis Urinary problem Other urinary problems Rhus dermatitis Contact dermatitis and other eczema due to plants (except food) [facility] Diagnosis Low hemoglobin- Primary Anemia, unspecified Iron deficiency anemia, unspecified iron deficiency anemia type [facility] Diagnosis Iron deficiency anemia, unspecified iron deficiency anemia type- Primary Vitamin D deficiency Unspecified vitamin D deficiency Weight gain Abnormal weight gain Encounter for lipid screening for cardiovascular disease Screening for lipoid disorders Screening for diabetes mellitus [facility] Diagnosis Iron deficiency anemia, unspecified iron deficiency anemia type- Primary Vitamin D deficiency Unspecified vitamin D deficiency Well adult exam Routine general medical examination at a health care facility Encounter for lipid screening for cardiovascular disease Screening for lipoid disorders Encounter for screening for diabetes mellitus Screening for diabetes mellitus [facility] Diagnosis Iron deficiency anemia, unspecified iron deficiency anemia type- Primary Screening for depression Encounter for screening examination for other mental health and behavioral disorders Low hemoglobin Anemia, unspecified [facility] noteNo assessment information availableSalinas [facility] Center Work Phone: Reason for referral (narrative)No reason for referral information availableSalinas Surgery Center Work Phone: Summary Purpose Family History Relationship Condition Age at Onset Recorded Date/T stephan grandmother Malignant neoplasm Unknown Advance Directives No Advanced Directives Records FoundNo Advanced Directives Records FoundNo Advanced Directives Records FoundNo Advanced Directives Records Found Chief Complaint and Reason for Visit Chief Complaint 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 Date 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, 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 9:5 7am Additional Source Comments INFORMATION SOURCE (unrecogn ized section and content) DATE CREATED AUTHOR 07/06/2018 [facility] ([place]) DATE CREATED AUTHOR AUTHOR'S ORGANIZ ATION 09/20/2023 [facility] DATE CREATED AUTHOR AUTHOR'S ORGANIZ ATION 09/06/2024 [facility] DATE CREATED AUTHOR AUTHOR'S ORGANIZ ATION 10/21/2024 [facility] Source Comments (unrecognize d section and content) In the event this informatio n is protected by the Federal Confidentiality of Alcohol and Drug Abuse Patient Records regulations: The Federal rules restrict any use of the information to criminally investigate or prosecute any alcohol or drug abuse patient.[facility] the event this information is protected by the Federal Confidentiality of Alcohol and Drug Abuse Patient Records regulations: The Federal rules restrict any use of the information to criminally investigate or prosecute any alcohol or drug abuse patient.[facility] the event this information is protected by the Federal Confidentiality of Alcohol and Drug Abuse Patient Records regulations: The Federal rules restrict any use of the information to criminally investigate or prosecute any alcohol or drug abuse patient.[facility] System[facility] the event this information is protected by the Federal Confidentiality of Alcohol and Drug Abuse Patient Records regulations: The Federal rules restrict any use of the information to criminally investigate or prosecute any alcohol or drug abuse patient.[facility] System[facility] the event this information is protected by the Federal Confidentiality of Alcohol and Drug Abuse Patient Records regulations: The Federal rules restrict any use of the information to criminally investigate or prosecute any alcohol or drug abuse patient.[facility] System[facility] the event this information is protected by the Federal Confidentiality of Alcohol and Drug Abuse Patient Records regulations: The Federal rules restrict any use of the information to criminally investigate or prosecute any alcohol or drug abuse patient.[facility] System[facility] the event this information is protected by the Federal Confidentiality of Alcohol and Drug Abuse Patient Records regulations: The Federal rules restrict any use of the information to criminally investigate or prosecute any alcohol or drug abuse patient.[facility] System[facility] the event this information is protected by the Federal Confidentiality of Alcohol and Drug Abuse Patient Records regulations: The Federal rules restrict any use of the information to criminally investigate or prosecute any alcohol or drug abuse patient.[facility] System[facility] the event this information is protected by the Federal Confidentiality of Alcohol and Drug Abuse Patient Records regulations: The Federal rules restrict any use of the information to criminally investigate or prosecute any alcohol or drug abuse patient.[facility] System[facility] the event this information is protected by the Federal Confidentiality of Alcohol and Drug Abuse Patient Records regulations: The Federal rules restrict any use of the information to criminally investigate or prosecute any alcohol or drug abuse patient.[facility] Reason for Visit (unrecogniz ed section and content) Reason Comments Cough x4 days Reason Comments Nurse Visit Reason Comments Establish Care Reason Comments Results Reason Comments Derm Problem Rash Patient is an a vid runningStarted one week ago Patient thinks poison linh Urinary Problem Frequency and burnin g Started today Denies chance of STI Reason Comments 6 Month Exam Reason Comments Orders Care Teams (unrecognized sec tion and content) 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 Machine 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 Relationship Specialty Start Date End Date Angelo Lee MD [address] [place] [address] PCP - General Family Practice 03/02/18 Concaving Machine Operator Relationship Specialty Start Date End Date Angelo Lee MD [address] [place] [address] PCP - General Family Medicine 03/02/18 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 Machine 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 Relationship Specialty Start Date End Date Lora Hawkins, HEALTHCARE REPRESENTATIVE.STORE TEAM LEADER [address] [place] [address] [phone] PCP - General Family Medicine 08/27/23 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 Machine Operator Relationship Specialty Start Date End Date Lora Hawkins, HEALTHCARE REPRESENTATIVE.STORE TEAM LEADER [address] [place] [address] [phone] PCP - General Family Medicine 08/27/23 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 Machine Operator Relationship Specialty Start Date End Date Lora Hawkins, HEALTHCARE REPRESENTATIVE.STORE TEAM LEADER [address] [place] [address] [phone] PCP - General Family Medicine 08/27/23 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 Machine Operator Relationship Specialty Start Date End Date Lora Hawkins, HEALTHCARE REPRESENTATIVE.STORE TEAM LEADER [address] [place] [address] [phone] PCP - General Family Medicine 08/27/23 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 Machine Operator Relationship Specialty Start Date End Date Lora Hawkins, HEALTHCARE REPRESENTATIVE.STORE TEAM LEADER [address] [place] [address] [phone] PCP - General Family Medicine 08/27/23 Concaving Machine Operator Relationship Specialty Start Date End Date TundeLora giron, HEALTHCARE REPRESENTATIVE.STORE TEAM LEADER [address] [place], [place] [phone] PCP - General Family Medicine 08/27/23 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 Elias Lee MD Primary Care Provider Acti ve Team Status: Inactive Member Role/Relationship Status Dates Dr. Elias Lee MD Primary Care Provider Acti ve Start: October 26, 2024 End: October 26, 2024 Dr. Elias Lee MD Referring Provider Active Start: October 26, 2024 End: October 26, 2024 GLENN Tillman Attending Provider Active Start: October 26, 2024 End: October 26, 2024 Goals (unrecognized section and content) Goals may be documented in a n alternate section FOR RECORDS PERTAINING TO PATIENTS WHO ARE OR HAVE BEEN ENROLLED IN A CHEMICAL DEPENDENCY/SUBSTANCEABUSE PROGRAM, SOME INFORMATION MAY BE OMITTED. This clinical summary was aggregated from multiple sources. Caution should be exercised in using it in the provision of clinical care. This summary normalizes information from multiple sources, and as a consequence, information in this document may materially change the coding, format and clinical context of patient data. In addition, data may be omitted in some cases. CLINICAL DECISIONS SHOULD BE BASED ON THE PRIMARY CLINICAL RECORDS. [employer] provides no warranty or guarantee of the accuracy or completeness of information in this document.
[2024-10-28 14:08] LABS: HPV APTIMA, High Risk Negative (Negative)
== END | disposition home or self-care (01) ==
LOC: LABSPEC 11:43
PROVIDERS: PCP Family Medicine; Referring Provider Nurse Practitioner Family; Visit Provider Nurse Practitioner Family
DX: Z12.4 Encounter for screening for malignant neoplasm of cervix (principal)
CPT/HCPCS: 87624; 88175; G0145